=== PATIENT | female | born 1935 | race Caucasian/White ===

== ENCOUNTER 2017-01-18 07:42 | Day surgery (SDC) | payer MEDICARE, OTHER ==
--- NOTE | 2016-12-28 09:50 | HP ---
PREOPERATIVE HISTORY AND PHYSICAL: DATE OF ADMISSION/SURGERY: 01/18/17 PROCEDURE: Right middle finger trigger finger release. CHIEF COMPLAINT: Right middle finger triggering. HISTORY OF PRESENT ILLNESS: This is a 81-year-old female complaining of triggering and pain in the right middle finger that has been ongoing since May 2016. The patient had a cortisone injection for this problem in July 2016 which was helpful; however, the symptoms have returned. She has had a history of trigger fingers in the past and has had trigger finger releases that had been quite successful. She would like to proceed with surgical intervention for her right middle finger at this time. The patient has sleep apnea and is on a CPAP at night with oxygen. PAST MEDICAL HISTORY: 1. Sleep apnea for which she wears a CPAP at night with oxygen. 2. Restless leg syndrome. 3. Hypothyroidism. 4. Mild COPD. 5. Hypertension. PAST SURGICAL HISTORY: 1. Spinal fusion in lumbar region 16 years ago. 2. Right total knee arthroplasty by Dr. Wise. 3. Left total knee arthroplasty by Dr. Salas. 4. Left breast cyst excision. 5. Bilateral carpal tunnel releases. 6. Cholecystectomy. 7. Hysterectomy. 8. Appendectomy. 9. Trigger finger releases, right hand and left ring finger trigger finger releases. CURRENT MEDICATIONS: 1. Albuterol sulfate 1 vial via nebulizer 4 times daily p.r.n. 2. Yuliana 100 mg daily p.r.n. 3. Amoxicillin 500 mg 4 tabs 1 hour before dental work or invasive GI or procedures. 4. Carbidopa/Levodopa 25/100 mg daily. 5. Culturelle 1 daily. 6. Furosemide 40 mg daily. 7. Levothyroxine sodium 100 mcg daily. 8. Misoprostol 100 mcg daily. 9. Naproxen 500 mg 1 tablet q.8 h. p.r.n. pain. 10. Neurontin 300 mg 1 tab at bedtime, may take up to 4 daily. 11. Nexium 40 mg daily. 12. Spiriva HandiHaler 18 mcg q.a.m. 13. Spironolactone 50 mg daily. 14. Vitamin B12 1000 mg daily. 15. Vytorin 10/40 mg daily. ALLERGIES: 1. AVELOX causes thrush. 2. DICHLORALPHENAZONE causes nausea. 3. MORPHINE causes itching. 4. NOVOCAINE causes heart palpitations. The patient is tolerant to lidocaine. FAMILY MEDICAL HISTORY: Noncontributory. SOCIAL HISTORY: The patient is retired. She is a former smoker, quit in the year 1999. She denies illicit drug use. She does admit to regular alcohol use , approximately 2 drinks daily. REVIEW OF SYSTEMS: General: Negative for fevers, chills or night sweats. Under general anesthesia in the past, she has had an issue with a drop in her oxygen saturation. HEENT: Negative for headache, lightheadedness or syncopal episodes. Integumentary: Negative for abrasions, lesions or open wounds. Cardiothoracic: Positive for hypertension. Negative for chest pain. Pulmonary : Positive for COPD, shortness of breath with exertion and chronic cough. GI: Negative for nausea, vomiting, diarrhea or constipation or GERD. : Negative for nocturia, urinary frequency, urgency, history of UTIs or kidney problems. Musculoskeletal: Positive for current complaint along with a history of a lumbar spinal fusion. Neurological: Negative for paraesthesias, numbness, history of seizures, stroke or epilepsy. Endocrine: Positive for hypothyroidism, negative for diabetes. Hematologic. Negative for easy bruising , anemia, excessive bleeding or history of DVTs. Infectious Disease: Negative for history of MRSA, hepatitis C or HIV. PHYSICAL EXAMINATION GENERAL: A well-developed, well-nourished 81-year-old female in no acute distress. VITAL SIGNS: Height 5 feet tall, weight 216 pounds. Blood pressure 118/78, pulse rate 64. HEENT: Normocephalic, atraumatic. Pupils are equal, round and reactive to light and accommodation. Extraocular movements are intact. Throat is clear. NECK: Supple. No palpable lymph nodes. PULMONARY: Clear to auscultation bilaterally. No wheezes, rales or rhonchi. CARDIOTHORACIC: Irregular rate and rhythm. S1, S2. No murmurs, rubs or gallops. ABDOMEN: Positive bowel sounds. Soft, nontender. MUSCULOSKELETAL: On exam of her right hand she has tenderness to palpation at the A1 judah of the middle finger. There is a palpable nodule present. She has full range of motion but active triggering as she moves to flexion and extension. Neurovascular function is intact. NEUROLOGIC: Alert and oriented x3. Cranial nerves II through XII are intact. Sensation is intact to light touch. IMPRESSION: Right middle finger trigger finger. PLAN: The patient is scheduled to undergo a right middle finger release with Dr. Garcia on 01/18/17. She will return to the office 10 to 14 days postop for followup and suture removal. A prescription for Ultracet was e-scribed to the patient's pharmacy for postoperative pain management. PHILIP LANDRUM [id number]/[facility] #: [id number] ELKE
[~2017-01-18 07:42] MED LIST: Buffered Lidocaine 0.9% SYRIN* 5 ML/SYR SYRINGE INTRADERM ONE; NS 0.9% 1000 ML* 1,000 ML IV SCH
[2017-01-18] MEDS ORDERED: Acetaminophen TAB* 325 MG PO PRN (08:55)
[2017-01-18] MEDS ORDERED: PROCHLORPERAZINE INJ 5 MG/ML 2 ML VIAL IV PRN (08:55)
[2017-01-18] MEDS ORDERED: Ondansetron INJ* 2 MG/ML VIAL IV PRN (08:55)
[2017-01-18] MEDS ORDERED: Lidocaine 1% INJ* 10 MG/ML 30 ML SDV ONE (08:59)
[2017-01-18] MEDS ORDERED: Midazolam* 1 MG/ML 2 ML VIAL (2 MG) ONE (09:08)
[2017-01-18] MEDS ORDERED: Lidocaine 2% PF * 5 ML VIAL ONE (09:26)
[2017-01-18] MEDS ORDERED: Propofol* 10 MG/ML 20 ML BTL IV PUSH ONE (09:26)
[2017-01-18] MEDS ORDERED: KETAMINE HCL* 50 MG/ML 10 ML VIAL ONE (09:27)
--- NOTE | 2017-01-18 10:22 | OP ---
DATE OF OPERATION: 01/18/17 - [facility] DATE OF : 39 SURGEON: Yudy Garcia MD EXPORT PACKER: PHILIP Macedo ANESTHESIOLOGIST: Vineet Cali MD ANESTHESIA: Local, MAC. PRE-OP DIAGNOSIS: Right long finger trigger finger. POST-OP DIAGNOSIS: Right long finger trigger finger. OPERATIVE PROCEDURE: Right long finger trigger release. ESTIMATED BLOOD LOSS: Zero. TOURNIQUET TIME: About 8 minutes. INDICATION: Jelly is a 81-year-old female with triggering and locking of her right middle finger. She presents for trigger finger release. DESCRIPTION OF PROCEDURE: The patient was brought to the operating room, was given a sedation anesthetic and a local infiltration of 10 cc of 1% plain lidocaine. Skin of her right hand and forearm was prepped and draped in the usual sterile fashion. The hand and forearm were exsanguinated and tourniquet elevated to 250 mmHg. A transverse incision was made centered over the A1 judah of the right middle finger, dissected through the subcutaneous tissue and down to the A1 judah. The digital neurovascular bundles were retracted by the bilingual administrative assistant, Marj Pappas. The A1 judah was incised longitudinally, completely releasing the flexor tendons which were in very good condition. The wound was irrigated and the skin edges reapproximated with 4-0 nylon suture. The wound was dressed with Xeroform, 4x4, Webril and an Fernando wrap. The patient tolerated the procedure well, was brought to the recovery room in good condition. [id number]/[facility] #: [id number] MTDD
[2017-01-18 10:35] VITALS: BP 123/65
== END 2017-01-18 10:30 | disposition home or self-care (01) ==
LOC: OREAST 07:42
PROVIDERS: ATTEND Orthopaedic Surgery
DX: M65.331 Trigger finger, right middle finger (principal); G47.33 Obstructive sleep apnea (adult) (pediatric); E03.9 Hypothyroidism, unspecified; J44.9 Chronic obstructive pulmonary disease, unspecified; I10 Essential (primary) hypertension; G25.81 Restless legs syndrome; Z88.1 Allergy status to other antibiotic agents; Z88.4 Allergy status to anesthetic agent; Z88.5 Allergy status to narcotic agent; Z88.8 Allergy status to other drugs, medicaments and biological substances; Z87.891 Personal history of nicotine dependence
CPT/HCPCS: J2001; J2250; J2704

== ENCOUNTER 2017-12-18 06:22 | Inpatient (IN) | payer MEDICARE, OTHER ==
--- NOTE | 2017-12-06 21:32 | HP ---
PREOPERATIVE HISTORY AND PHYSICAL: DATE OF ADMISSION/SURGERY: 12/18/17 DATE OF OFFICE VISIT: 12/05/17 ATTENDING SURGEON: Fallon Jones MD * (DICTATED BY PHILIP LONGORIA) PROCEDURE: Right total shoulder reverse. CHIEF COMPLAINT: Right shoulder pain. HISTORY OF PRESENT ILLNESS: Jelly is an 82-year-old female, who presents to the clinic for right shoulder pain due to rotator cuff arthropathy and osteoarthritis. She has failed conservative measures and therefore agreed to undergo right total shoulder reverse with Dr. Jones on 12/18/17. PAST MEDICAL HISTORY: Hypothyroidism, pulmonary hypertension, COPD, restless legs syndrome, hypertension, hypercholesterolemia, and obstructive sleep apnea. PAST SURGICAL HISTORY: Appendectomy, left breast cyst removal, abscess surgery , left bunion repair, gallbladder and hernia repair, left carpal tunnel, right carpal tunnel, spinal fusion L4 through 5, hysterectomy, right and left total knee replacements, trigger finger release x4. The patient states that with general anesthesia, she has issues with decreased pulse ox postoperatively. MEDICATIONS: 1. Nystatin 100,000 units/g twice a day as needed. 2. Simvastatin 40 mg 1 by mouth every day. 3. Tramadol 50 mg 1 to 2 every 8 hours as needed. 4. Amoxicillin 500 mg 4 tabs 1 hour before dental work. 5. Misoprostol 100 mcg 1 by mouth daily. 6. Spironolactone 50 mg 1 by mouth daily. 7. Vitamin B12 1000 mg 1 by mouth every day. 8. Naproxen 500 mg 1 every 12 hours as needed for pain. 9. Nexium 40 mg 1 by mouth daily. 10. Yuliana 180 mg 1 by mouth daily as needed. 11. Neurontin 300 mg 4 times at bedtime. 12. Carbidopa/levodopa 25/100 mg 1 by mouth daily. 13. Levothyroxine sodium 100 mcg 1 by mouth daily. 14. Culturelle 1 by mouth 15 billion cells per capsule. 15. Furosemide 40 mg 1 by mouth every day. 16. Albuterol 0.083% one vial four times a day as needed. ALLERGIES: AVELOX, NOVOCAIN, DICHLORALPHENAZONE, and MORPHINE. FAMILY HISTORY: Positive for heart issues in maternal grandparents, in father, and Alzheimer's disease in mother. Denies family history of DVT or PE. SOCIAL HISTORY: She is . She lives alone. She is retired. She is a former smoker, quit in 1999. She reports occasional alcohol use. She denies illegal drug use. REVIEW OF SYSTEMS: A 14-point review of systems was reviewed with the patient. Positive for current complaint, otherwise negative. Denies fevers, chills, chest pain, shortness of breath, history of hep C or HIV, history of bleeding disorder, history of DVT or PE. PHYSICAL EXAMINATION GENERAL: An 82-year-old, well-developed, well-nourished female, in no acute distress. Alert and oriented x3. Appropriate mood and affect. Normal balance and coordination in the upper extremities. VITAL SIGNS: Height 60.5, weight 202, pulse 88, blood pressure 110/86, respiratory rate 20, temperature 97.9, and BMI 38.8. HEENT: Normocephalic, atraumatic. PERRLA. Throat: Clear. NECK: Supple. PULMONARY: Lungs are clear to auscultation bilaterally. No wheezing, rhonchi, or rales. CARDIO: Regular rate and rhythm. S1, S2. No murmurs, gallops, or rubs. No edema. ABDOMEN: Positive bowel sounds, soft, and nontender. NEURO: Alert and oriented x3. Cranial nerves grossly intact. Sensation is intact to light touch. MUSCULOSKELETAL: Right upper extremity, skin is intact. Tenderness over the anterior joint line. Forward flexion 160, abduction 150, external rotation to 80, internal rotation to T10. Weakness to rotator cuff testing. +2 radial pulse. Sensation intact to light touch distally. DIAGNOSTIC STUDIES: MRI and x-ray of the right shoulder revealed rotator cuff tear with severe osteoarthritis. IMPRESSION: Right shoulder osteoarthritis and rotator cuff arthroscopy. PLAN: The patient is scheduled to undergo a right total shoulder reverse with Dr. Jones on 12/18/17. She will return to the office 10 to 14 days postop for followup and suture removal. PHILIP LONGORIA [id number]/[facility] #: [id number] [facility]PITALGraham
[~2017-12-18 06:22] MED LIST changes: +Famotidine IV* 10 MG/ML 2 ML (20 mg) IV ONE; -NS 0.9% 1000 ML* 1,000 ML IV SCH
--- OUTSIDE RECORDS SUMMARY | 2017-12-18 06:28 | XMS REPORT ---
:1935 External Reference #:[id number] Author Organization [facility] Address [address] [address] Phone [phone] Care Team Providers Name Role Phone Antonio Urban MD Primary Care Physician Unavailable Payers Type Date Identification Numbers Payment Provider Subscriber Medicare Primary Effective: Policy Number: Medicare Jelly Dover 2002 [id number] PayID: [id number] [address] [place] [address] Medigap Part B Effective: Policy Number: [facility] Davis Dover 2002 [id number] PayID: [id number] [address] [place] [address] Problems Date Description Provider Status Onset: 12/08/2014 Osteoarthritis of knee Hiram Wise M.D. Active Onset: 08/26/2012 Obstructive sleep apnea of adult Rea Bertrand DNP, RN, Active [employer] Note: 08/26/12 on CPAP with O2 2L Onset: 06/17/2015 Localized, primary osteoarthritis Lizzie Salas M.D. Active Onset: 09/26/2015 Arthroplasty of knee Lizzie Salas M.D. Active Onset: 03/04/2017 Osteoarthritis of glenohumeral Antonio Urban Active joint Edgardo,FACP Onset: 03/04/2017 Restless legs Antonio Urban Active Edgardo,FACP Onset: 03/04/2017 Chronic obstructive lung disease Antonio Urban Active Edgardo,FACP Onset: 03/04/2017 Pulmonary hypertension Khadijah Jones M.D.,FACP Note: Mod Onset: 03/04/2017 Hypothyroidism Khadijah Jones M.D.,FACP Onset: 07/11/2017 Full thickness rotator cuff tear Fallon Jones MD Active Onset: 07/11/2017 Injury of shoulder region Fallon Jones MD Active Family History Date Family Member(s) Problem(s) Comments General MGP heart issues ; did not know PGP Father of massive heart attack at age 59 Father due to [place] () Mother at age 85 Mother Shashank's disease; pernecious anemia Siblings None Siblings 1 adopted sister Maternal Grandfather Heart Disease Maternal Grandmother Heart Disease Social History Type Date Description Comments Marital Status Marital Status 2 Times Lives With Alone Occupation Retired Cigarette Use Quit 15 Years Ago Cigarette Use Pack Years - 47 ETOH Use Consumes 7 glasses of wine per week Smoking Patient is a former smoker Recreational Drug Use Denies Drug Use Smoking Light tobacco smoker (10 or reports smoking 1/2 to fewer cigarettes/day) 2 packs per day x 40 years, quit in 1999. Daily Caffeine Consumes on average 1 cup of regular coffee per day Exercise Type/Frequency Exercises sporadically General Hx Text 2 children, plus one killed by drunk driver license agent, 4th stillborn Allergies, Adverse Reactions, Alerts Date Description Reaction Status Severity Comments 05/13/2013 Avelox active 05/13/2013 Novocain active 03/07/2015 Dichloralphenazone active sick to stomach 03/07/2015 Morphine active Medications Medication Date Status Form Strength Qnty SIG Indications Ordering Provider Simvastatin 11/18 Active Tablets 40mg 90tab 1 by mouth s every day TREVOR Hernandez Tramadol HCL 10/11 Active Tablets 50mg 40tab 1-2 tablets M75.121 jv s every 8 MD Robert hours as needed Amoxicillin 10/11 Active Capsules 500mg 16cap 4 tablets 1 Marita s hour before Bordonadalgisa, dental [employer]VANC[employer]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 Spironolactone 03/06 Active Tablets 50mg 30tab 1 by mouth s daily Vitamin B12 03/06 Active Tablets 1000mg 1 by mouth every day Naproxen 10/13 Active Tablets 500mg 90tab 1 tablet s q12 hours Hernandez, as needed [employer] PRACTICE NURSE PSYCHOTHERAPIST pain reduce to one tablet daily when able Nexium Active Capsules 40mg 90cap [address] s Yuliana Active Tablets 180mg 30tab 1 po qd prn s Neurontin Active Capsules 300mg 360ca four Antonio ps tablets a D. [place], bedtime M.D.,FACP daily (correction ) Carbidopa/Levodo Active Tablets 25-100mg 270ta 1 po qd Unknown bs Levothyroxine Active Tablets 100mcg 90tab 1 by mouth Sully Sodium s every day TREVOR Hernandez Culturelle Active Capsules 30cap once a day Unknown s 15 billion cells per capsule Furosemide Active Tablets 40mg 90tab 1 by mouth Sully / s every day TREVOR Hernandez Albuterol Active Nebulizer (2.5mg/3M 1 vial via Unknown L) 0.083% nebulizer 4 times daily as needed Ultracet 12/26 Hx Tablets 37.5-325m 20tab 1 tab by g s mouth every Garcia, - 4-6 hours M.D. 11/21 as needed pain Ultracet 01/29 Hx Tablets 37.5-325m 30tab 1-2 tabs by g s mouth every Garcia, - 4-6 hours M.D. 07/08 as needed pain Amoxicillin 06/20 Hx Tablets 500mg 30tab 1 by mouth s tid for 10 Bordoni, - days. ADVANC[employer] PRACTICE NURSE PSYCHOTHERAPIST 08/09 Percocet 06/15 Hx Tablets 5-325mg 90tab 1-2 by M17.11 Lizzie s mouth every Josue, - 4 to 6 M.D. 08/09 hours needed pain Coumadin 06/15 Hx Tablets 2mg 60tab take 1-5 M17.11 Dir s tablets as Frandy, - directed M.D. 08/09 Amoxicillin 01/03 Hx Tablets 500mg 8tabs take 4 tabs 1 hour Frandy, - before M.D. 08/09 procedure. Percocet 10/13 Hx Tablets 5-325mg 50tab 1 by mouth Dirk s q8h prn Frandy, - pain M.D. 10/27 Percocet 10/13 Hx Tablets 5-325mg 80tab 1-2 by Dirk s mouth every Frandy, - 8 hours as M.D. 03/06 needed pain Diclofenac 05/[address] 75mg 180ta take 1 bs tablet by Silvia, - mouth twice M.D. 10/27 a day /2014 Ultracet 03/24 Hx Tablets 37.5-325m 30tab 1 - 2 by Yudy /2014 g s mouth Garcia, - q4-6hr as M.D. 10/27 needed pain /2014 Losartan 00/ Hx Tablets 50mg 90tab 1 po qd Unknown Potassium /0000 s - 03/06 Naproxen Ec Hx Tablets DR 500mg 60tab 1 po bid Unknown /0000 s - 05/19 Vytorin Hx Tablets 10-40mg 90tab 1 by mouth Sully /0000 s every day Mary, - [employer]ACTICE NURSE PSYCHOTHERAPIST 11/18 Bumetanide Hx Tablets 1mg 90tab 1 po qd Unknown /0000 s - 10/27 Spironolactone 0000 Hx Tablets 50mg 90tab 1 po qd Unknown /0000 s - 11/11 Spiriva Hx Capsules 18mcg 30cap 1 Unknown Handihaler /0000 s inhalation - po qam 05/15 Multi-Day 00/00 Hx Tablets 30tab 1 po qd Unknown Vitamins /0000 s - 03/06 Medications Administered in Office Medication Date Status Form Strength Qnty SIG Indications Ordering Provider Triamcinolone 10/11/ Administered Injection Zaneb (Kenalog) 2017 MD Robert Triamcinolone 07/11/ Administered Injection Zaneb (Kenalog) 2016 MD Robert Depomedrol 40MG 05/16/ Administered Injection Yudy 2016 Edgardo Garcia Depomedrol 40MG 07/11/ Administered Injection Yudy 2015 Edgardo Garcia Depomedrol 40MG 08/10/ Administered Injection Yudy 2015 Edgardo Garcia Depomedrol 80MG 12/29/ Administered Injection Yudy 2014 Edgarod Garcia Depomedrol 80MG 11/11/ Administered Injection Yudy 2013 Edgardo Garcia Depomedrol 80MG 05/13/ Administered Injection Yudy 2012 Edgardo Garcia PPD 05/05/ Administered Injection Unknown 2008 Immunizations CPT Code Status Date Vaccine Reaction Lot # [id number] Given 05/16/2017 Influenza Virus Vaccine, No immediate [id number] Quadrivalent, Split, reaction..jh Preservative Free [id number] Given 03/04/2017 Pneumococcal Conjugate [id number] Vaccine 13 Valent For Intramuscular Use [id number] Given 04/05/2016 Fluzone Vaccine [id number] Given 06/05/2015 Pneumonia Vaccine [id number] Given 01/03/2006 Tdap - Tetanus/Diptheria/Acellular Pertussis Vital Signs Date Vital Result Comment 11/21/2017 Weight 200.00 lb Heart Rate 93 /min BP Systolic 122 mmHg BP Diastolic 72 mmHg Body Temperature 97.9 F O2 % BldC Oximetry 95 % 10/28/2017 Weight 201.00 lb Heart Rate 77 /min BP Systolic 125 mmHg BP Diastolic 65 mmHg Body Temperature 98.2 F O2 % BldC Oximetry 95 % 10/11/2017 Height 60.5 inches 5'0.50" Weight 215.00 lb BP Systolic 122 mmHg BP Diastolic 76 mmHg Respiratory Rate 20 /min Pain Level 7 BMI (Body Mass Index) 41.3 kg/m2 09/04/2017 Heart Rate 82 /min BP Systolic 117 mmHg BP Diastolic 62 mmHg Body Temperature 98.0 F O2 % BldC Oximetry 96 % 08/23/2017 Height 60.5 inches 5'0.50" Weight 215.00 lb BP Systolic 120 mmHg BP Diastolic 68 mmHg Respiratory Rate 20 /min Pain Level 2 BMI (Body Mass Index) 41.3 kg/m2 07/11/2017 Height 60.5 inches 5'0.50" Weight 215.00 lb Heart Rate 80 /min Respiratory Rate 14 /min Body Temperature 97.9 F Pain Level 0 BMI (Body Mass Index) 41.3 kg/m2 07/03/2017 Height 60.5 inches 5'0.50" Weight 215.00 lb Heart Rate 79 /min BP Systolic 12 mmHg BP Diastolic 0 mmHg BP Systolic Sitting 78 mmHg Body Temperature 96.9 F BMI (Body Mass Index) 41.3 kg/m2 05/16/2017 Height 60.5 inches 5'0.50" Weight 215.00 lb Heart Rate 68 /min BP Systolic 124 mmHg BP Diastolic 62 mmHg Respiratory Rate 18 /min Body Temperature 96.0 F Pain Level 5 BMI (Body Mass Index) 41.3 kg/m2 03/04/2017 Height 60.5 inches 5'0.50" Weight 212.00 lb Heart Rate 67 /min BP Systolic Sitting 104 mmHg BP Diastolic Sitting 60 mmHg Body Temperature 97.7 F O2 % BldC Oximetry 97 % BMI (Body Mass Index) 40.7 kg/m2 02/18/2017 Height 60 inches 5'0" Weight 216.00 lb Heart Rate 77 /min BP Systolic 119 mmHg BP Diastolic 70 mmHg BMI (Body Mass Index) 42.2 kg/m2 01/28/2017 Height 60 inches 5'0" Weight 216.00 lb Heart Rate 68 /min BP Systolic 112 mmHg BP Diastolic 78 mmHg Body Temperature 97.8 F Pain Level 0 BMI (Body Mass Index) 42.2 kg/m2 12/26/2016 Height 60 inches 5'0" Weight 216.00 lb BP Systolic 118 mmHg BP Diastolic 78 mmHg Body Temperature 97.8 F BMI (Body Mass Index) 42.2 kg/m2 09/05/2016 Height 60 inches 5'0" Weight 200.00 lb Heart Rate 107 /min BP Systolic 104 mmHg BP Diastolic 62 mmHg Respiratory Rate 14 /min O2 % BldC Oximetry 93 % BMI (Body Mass Index) 39.1 kg/m2 07/11/2016 Height 60 inches 5'0" Weight 200.00 lb Pain Level 7 BMI (Body Mass Index) 39.1 kg/m2 07/09/2016 Height 60 inches 5'0" Weight 200.00 lb Heart Rate 62 /min BP Systolic Sitting 98 mmHg BP Diastolic Sitting 68 mmHg Respiratory Rate 14 /min Pain Level 0 BMI (Body Mass Index) 39.1 kg/m2 07/04/2016 Height 60 inches 5'0" Weight 200.00 lb Heart Rate 110 /min BP Systolic 137 mmHg BP Diastolic 65 mmHg BMI (Body Mass Index) 39.1 kg/m2 03/15/2016 Height 60 inches 5'0" Weight 200.00 lb Body Temperature 98.1 F Pain Level 0 BMI (Body Mass Index) 39.1 kg/m2 02/20/2016 Height 70 inches 5'10" Weight 200.00 lb Heart Rate 64 /min Respiratory Rate 16 /min Body Temperature 98.3 F Pain Level 3 BMI (Body Mass Index) 28.7 kg/m2 02/17/2016 Height 60 inches 5'0" Weight 200.00 lb Heart Rate 60 /min Respiratory Rate 16 /min Pain Level 0 BMI (Body Mass Index) 39.1 kg/m2 01/30/2016 Height 60 inches 5'0" Weight 200.00 lb BP Systolic 120 mmHg BP Diastolic 78 mmHg Pain Level 5 BMI (Body Mass Index) 39.1 kg/m2 10/12/2015 Height 60 inches 5'0" Weight 200.00 lb Pain Level 0 BMI (Body Mass Index) 39.1 kg/m2 09/26/2015 Height 60 inches 5'0" Weight 200.00 lb Pain Level 0 BMI (Body Mass Index) 39.1 kg/m2 08/12/2015 Height 60 inches 5'0" Weight 200.00 lb Pain Level 2 ache BMI (Body Mass Index) 39.1 kg/m2 08/10/2015 Height 60 inches 5'0" Weight 200.00 lb Heart Rate 64 /min BP Systolic Sitting 128 mmHg BP Diastolic Sitting 82 mmHg BMI (Body Mass Index) 39.1 kg/m2 07/11/2015 Height 60 inches 5'0" Weight 199.00 lb Body Temperature 97.9 F BMI (Body Mass Index) 38.9 kg/m2 06/17/2015 Height 60 inches 5'0" Weight 199.00 lb Heart Rate 68 /min BP Systolic 118 mmHg BP Diastolic 74 mmHg BMI (Body Mass Index) 38.9 kg/m2 06/15/2015 Height 60 inches 5'0" Weight 199.00 lb Heart Rate 68 /min BP Systolic Sitting 118 mmHg BP Diastolic Sitting 74 mmHg Pain Level 1 BMI (Body Mass Index) 38.9 kg/m2 05/04/2015 Height 60 inches 5'0" Weight 199.00 lb Pain Level 4 BMI (Body Mass Index) 38.9 kg/m2 03/07/2015 Height 60 inches 5'0" Weight 199.50 lb Heart Rate 85 /min BP Systolic Sitting 136 mmHg BP Diastolic Sitting 74 mmHg Respiratory Rate 20 /min Body Temperature 97.4 F O2 % BldC Oximetry 98 % BMI (Body Mass Index) 39.0 kg/m2 Neck Circumference in inches 15 01/13/2015 Height 60 inches 5'0" Weight 200.00 lb Heart Rate 75 /min BP Systolic 116 mmHg BP Diastolic 81 mmHg Pain Level 0 BMI (Body Mass Index) 39.1 kg/m2 12/29/2014 Heart Rate 64 /min BP Systolic Sitting 110 mmHg BP Diastolic Sitting 60 mmHg 12/08/2014 Height 60 inches 5'0" Weight 200.00 lb Pain Level 6 BMI (Body Mass Index) 39.1 kg/m2 11/17/2014 Height 60 inches 5'0" Weight 200.00 lb Pain Level 4 BMI (Body Mass Index) 39.1 kg/m2 10/27/2014 Height 60 inches 5'0" Weight 200.00 lb Heart Rate 80 /min BP Systolic Sitting 130 mmHg BP Diastolic Sitting 88 mmHg BMI (Body Mass Index) 39.1 kg/m2 10/13/2014 Height 60 inches 5'0" Heart Rate 90 /min BP Systolic 104 mmHg BP Diastolic 67 mmHg Body Temperature 97.9 F 09/06/2014 Height 60 inches 5'0" Weight 200.00 lb Heart Rate 73 /min BP Systolic 127 mmHg BP Diastolic 79 mmHg BMI (Body Mass Index) 39.1 kg/m2 07/21/2014 Height 60 inches 5'0" Weight 200.00 lb Heart Rate 89 /min BMI (Body Mass Index) 39.1 kg/m2 05/19/2014 Height 60 inches 5'0" Weight 200.00 lb Heart Rate 89 /min BP Systolic 119 mmHg BP Diastolic 80 mmHg BMI (Body Mass Index) 39.1 kg/m2 11/11/2013 Heart Rate 88 /min BP Systolic Sitting 130 mmHg BP Diastolic Sitting 82 mmHg 05/13/2013 Height 60 inches 5'0" Weight 200.00 lb BMI (Body Mass Index) 39.1 kg/m2 Results Test Date Test Result H/L Range Note Order 11/21/2017 EKG <pending> Lipid Profile 09/09/2017 Triglycerides 203 mg/dL 1 (Trig/Chol/HDL) Cholesterol 169 mg/dL 2 HDL Cholesterol 47.7 mg/dL 3 LDL Cholesterol 81 mg/dL 4 Laboratory test finding 09/09/2017 TSH (Thyroid Stim Horm) 0.35 mcIU/mL 0.34-5.60 Free T4 (Free Thyroxine) 0.93 ng/dL 0.61-1.12 Basic Metabolic Panel 09/09/2017 Sodium 138 mmol/L 133-145 Potassium 4.6 mmol/L 3.5-5.0 Chloride 99 mmol/L Low 101-111 Co2 Carbon Dioxide 34 mmol/L High 22-32 Anion Gap 5 mmol/L 2-11 Glucose 86 mg/dL 70-100 Blood Urea Nitrogen 14 mg/dL 6-24 Creatinine 0.84 mg/dL 0.51-0.95 BUN/Creatinine Ratio 16.7 8-20 Calcium 10.1 mg/dL 8.6-10.3 Egfr Non- 65.4 >60 Egfr 84.1 >60 5 Xray 07/04/2017 MRI Shoulder Right W/O <pending> Laboratory test 06/24/2015 Urine Culture And SEE RESULT BELOW 6 finding Sensitivities CBC No Diff 06/15/2015 White Blood Count 6.8 10^3/uL 4.8-10.8 7 Red Blood Count 4.33 10^6/uL 4.0-5.4 7 Hemoglobin 12.6 g/dL 12.0-16.0 7 Hematocrit 40 % 35-47 7 Mean Corpuscular Volume 92 fL 80-97 7 Mean Corpuscular Hemoglobin 29 pg 27-31 7 Mean Corpuscular HGB Conc 32 g/dL 31-36 7 Red Cell Distribution Width 14 % 10.5-15 7 Platelet Count 221 10^3/uL 150-450 7 Mean Platelet Volume 10 um3 7.4-10.4 7 Inr/Protime 06/15/2015 Inr 0.91 0.89-1.11 7, 8 Basic Metabolic Panel 06/15/2015 Sodium 136 mmol/L 133-145 7 Potassium 4.5 mmol/L 3.5-5.0 7 Chloride 98 mmol/L Low 101-111 7 Co2 Carbon Dioxide 31 mmol/L 22-32 7 Anion Gap 7 mmol/L 2-11 7 Glucose 86 mg/dL 70-100 7 Blood Urea Nitrogen 23 mg/dL 6-24 7 Creatinine 1.13 mg/dL High 0.51-0.95 7 BUN/Creatinine Ratio 20.4 High 8-20 7 Calcium 9.9 mg/dL 8.6-10.3 7 Egfr Non- 46.7 >60 7 Egfr 60.0 >60 7, 9 Type & Screen 06/15/2015 Patient Blood Type O Positive 7 Antibody Screen NEGATIVE 7 Urinalysis Profile 06/15/2015 Urine Color Straw 7 Urine Appearance Clear 7 Urine Specific [place] 1.006 Low 1.010-1.030 7 Urine pH 5.0 5-9 7 Urine Urobilinogen Negative Negative 7 Urine Ketones Negative Negative 7 Urine Protein Negative Negative 7 Urine Leukocytes Trace Negative 7 Urine Blood Negative Negative 7 Urine Nitrite Negative Negative 7 Urine Bilirubin Negative Negative 7 Urine Glucose Negative Negative 7 Urine White Blood Cell Trace(0-5/hpf) Absent 7 Urine Red Blood Cell Absent Absent 7 Urine Bacteria Absent Absent 7 Urine Squamous Epithelial Cell Present Absent 7 Urine Hyaline Casts Present Absent 7 Laboratory test 06/15/2015 Urine Culture And SEE RESULT 7, 10 finding Sensitivities BELOW CBC No Diff 01/14/2015 White Blood Count 7.6 10^3/uL 4.8-10.8 11 Red Blood Count 4.27 10^6/uL 4.0-5.4 11 Hemoglobin 12.4 g/dL 12.0-16.0 11 Hematocrit 39 % 35-47 11 Mean Corpuscular Volume 90 fL 80-97 11 Mean Corpuscular Hemoglobin 29 pg 27-31 11 Mean Corpuscular HGB Conc 32 g/dL 31-36 11 Red Cell Distribution Width 14 % 10.5-15 11 Platelet Count 264 10^3/uL 150-450 11 Mean Platelet Volume 9 um3 7.4-10.4 11 Urinalysis Profile 01/14/2015 Urine Color Colorless 11 Urine Appearance Clear 11 Urine Specific [place] 1.004 Low 1.010-1.030 11 Urine pH 6.0 5-9 11 Urine Urobilinogen Negative Negative 11 Urine Ketones Negative Negative 11 Urine Protein Negative Negative 11 Urine Leukocytes Trace Negative 11 Urine Blood Negative Negative 11 Urine Nitrite Negative Negative 11 Urine Bilirubin Negative Negative 11 Urine Glucose Negative Negative 11 Urine White Blood Cell Trace(0-5/hpf) Absent 11 Urine Red Blood Cell Absent Absent 11 Urine Bacteria Absent Absent 11 Urine Squamous Epithelial Cell Present Absent 11 Basic Metabolic Panel 01/14/2015 Sodium 135 mmol/L 133-145 11 Potassium 4.1 mmol/L 3.5-5.0 11 Chloride 96 mmol/L Low 101-111 11 Co2 Carbon Dioxide 34 mmol/L High 22-32 11 Anion Gap 5 mmol/L 2-11 11 Glucose 87 mg/dL 70-100 11 Blood Urea Nitrogen 21 mg/dL 6-24 11 Creatinine 0.94 mg/dL 0.51-0.95 11 BUN/Creatinine Ratio 22.3 High 8-20 11 Calcium 9.9 mg/dL 8.6-10.3 11 Egfr Non- 57.7 >60 11 Egfr 74.3 >60 11, 12 Inr/Protime 01/14/2015 Inr 0.92 0.78-1.07 11 Type & Screen 01/14/2015 Patient Blood Type O Positive 11 Antibody Screen NEGATIVE 11 Laboratory test 01/14/2015 Urine Culture And SEE RESULT BELOW 11, 13 finding Sensitivities Urinalysis Profile 09/06/2014 Urine Color Straw 14 Urine Appearance Clear 14 Urine Specific [place] 1.006 Low 1.010-1.030 14 Urine pH 6.0 5-9 14 Urine Urobilinogen Negative Negative 14 Urine Ketones Negative Negative 14 Urine Protein Negative Negative 14 Urine Leukocytes Negative Negative 14 Urine Blood Negative Negative 14 Urine Nitrite Negative Negative 14 Urine Bilirubin Negative Negative 14 Urine Glucose Negative Negative 14 CBC No Diff 09/06/2014 White Blood Count 6.8 10^3/uL 4.8-10.8 14 Red Blood Count 3.99 10^6/uL Low 4.0-5.4 14 Hemoglobin 12.6 g/dL 12.0-16.0 14 Hematocrit 38 % 35-47 14 Mean Corpuscular Volume 95 fL 80-97 14 Mean Corpuscular Hemoglobin 32 pg High 27-31 14 Mean Corpuscular HGB Conc 33 g/dL 31-36 14 Red Cell Distribution Width 13 % 10.5-15 14 Platelet Count 237 10^3/uL 150-450 14 Mean Platelet Volume 10 um3 7.4-10.4 14 Inr/Protime 09/06/2014 Inr 0.92 0.78-1.07 14, 15 Basic Metabolic Panel 09/06/2014 Sodium 132 mmol/L Low 133-145 14 Potassium 4.7 mmol/L 3.5-5.0 14 Chloride 96 mmol/L Low 101-111 14 Co2 Carbon Dioxide 31 mmol/L 22-32 14 Anion Gap 5 mmol/L 2-11 14 Glucose 95 mg/dL 70-100 14 Blood Urea Nitrogen 28 mg/dL High 6-24 14 Creatinine 1.05 mg/dL High 0.51-0.95 14 BUN/Creatinine Ratio 26.7 High 8-20 14 Calcium 10.4 mg/dL High 8.6-10.3 14 Egfr Non- 51.0 >60 14 Egfr 65.5 >60 14, 16 Laboratory test 09/06/2014 TSH (Thyroid 1.69 IU/mL 0.34-5.60 14, 17 finding Stimulating Horm) Type & Screen 09/06/2014 Patient Blood Type O Positive 14 Antibody Screen NEGATIVE 14 1 Desirable: <150 Borderline High: 150-199 High: 200-499 Very High: >500 2 Desirable: <200 Borderline High: 200-239 High: >239 3 Low: <40 Desirable: 40-60 High: >60 4 Desirable: <100 Near Optimal: 100-129 Borderline High: 130-159 High: 160-189 Very High: >189 5 Because ethnic data is not always readily available, this report includes an eGFR for both -Americans and non- Americans. The National Kidney Disease Education Program (NKDEP) does not endorse the use of the MDRD equation for patients that are not between the ages of 18 and 70, are , have extremes of body size, muscle mass, or nutritional status, or are non- or non-. According to the National Kidney Foundation, irrespective of diagnosis, the stage of the disease is based on the level of kidney function: Stage Description GFR(mL/min/1.73 m(2)) 1 Kidney damage with normal or decreased GFR 90 2 Kidney damage with mild decrease in GFR 60-89 3 Moderate decrease in GFR 30-59 4 Severe decrease in GFR 15-29 5 Kidney failure <15 (or dialysis) 6 SEE RESULT BELOW Name: JELLY DOVER : [address]: Lizzie Salas MD Acct: [id number] Unit: [id number] AGE: 79 Location: LAB Re06/24/15 SEX: F Status: REG REF SPEC: [id number] GERARDO: 06/24/15-1220 [facility] DR: Marita Virk NP REQ: [id number] RECD: 06/24/15 STATUS: COMP _ SOURCE: URINE SPDESC: ORDERED: Urine Culture Urine Source: Random Procedure Result Verified Site Urine Culture Final 06/26/15- 933 ML Organism 1 NORMAL STEPH [place] Count 10-25,000 (Moderate) CFU/ML * ML - MAIN LAB ([facility]) . END OF REPORT * ML=Testing performed at Main Lab DEPARTMENT OF PATHOLOGY, [address] [place] [address] Ruperto Lozano M.D. Director [facility] # [id number] 7 AA 06/21/15 8 Effective immediately, due to a laboratory mean normal Protime change, the reference range for the INR has changed. 9 Because ethnic data is not always readily available, this report includes an eGFR for both -Americans and non- Americans. The National Kidney Disease Education Program (NKDEP) does not endorse the use of the MDRD equation for patients that are not between the ages of 18 and 70, are , have extremes of body size, muscle mass, or nutritional status, or are non- or non-. According to the National Kidney Foundation, irrespective of diagnosis, the stage of the disease is based on the level of kidney function: Stage Description GFR(mL/min/1.73 m(2)) 1 Kidney damage with normal or decreased GFR 90 2 Kidney damage with mild decrease in GFR 60-89 3 Moderate decrease in GFR 30-59 4 Severe decrease in GFR 15-29 5 Kidney failure <15 (or dialysis) 10 SEE RESULT BELOW Name: JELLY DOVER : [address]: Hiram Wise MD Acct: [id number] Unit: [id number] AGE: 79 Location: [facility] Re06/15/15 SEX: F Status: REG REF SPEC: [id number] GERARDO: 06/15/15-1140 [facility] DR: Hiram Wise MD REQ: [id number] RECD: 06/15/15 STATUS: DEE SHETTY DR: Fahad Ramirez MD _ SOURCE: URINE [facility]: ORDERED: Urine Culture Procedure Result Verified Site Urine Culture Final 06/17/15- 1009 ML Organism 1 STREP GROUP B [place] Count 10-25,000 (Moderate) CFU/ML Organism 2 NORMAL STEPH [place] Count 1-10,000 (Few) CFU/ML Susceptibility testing of penicillins and other B-lactams approved by FDA for treatment of Streptococcus pyogenes (Group A Strep) and Streptococcus agalactiae (Group B Strep) is not necessary for clinical purposes and need not be done routinely, since as with vancomycin, resistant strains have not been recognized. (CLSI I799-S87;p.66) Positive isolates will be saved for one week. Please call the Microbiology Laboratory if further susceptibility testing is needed. * ML - [facility] ([facility]) . END OF REPORT * ML=Testing performed at Main Lab DEPARTMENT OF PATHOLOGY, [address] [place] [address] Ruperto Lozano M.D. Director [facility] # [id number] 01/25 12 Because ethnic data is not always readily available, this report includes an eGFR for both -Americans and non- Americans. The National Kidney Disease Education Program (NKDEP) does not endorse the use of the MDRD equation for patients that are not between the ages of 18 and 70, are , have extremes of body size, muscle mass, or nutritional status, or are non- or non-. According to the National Kidney Foundation, irrespective of diagnosis, the stage of the disease is based on the level of kidney function: Stage Description GFR(mL/min/1.73 m(2)) 1 Kidney damage with normal or decreased GFR 90 2 Kidney damage with mild decrease in GFR 60-89 3 Moderate decrease in GFR 30-59 4 Severe decrease in GFR 15-29 5 Kidney failure <15 (or dialysis) 13 SEE RESULT BELOW Name: JELLY DOVER : [address]: Hiram Wise MD Acct: [id number] Unit: [id number] AGE: 79 Location: PAT Re01/14/15 SEX: F Status: REG REF SPEC: [id number] GERARDO: 01/14/15-1404 [facility] DR: Hiram Wise MD REQ: [id number] RECD: 01/14/15 STATUS: DEE SHETTY DR: Fahad Ramirez MD _ SOURCE: URINE SPDESC: ORDERED: Urine Culture Procedure Result Verified Site Urine Culture Final 01/16/15- 09 ML Organism 1 NORMAL STEPH [place] Count 1-10,000 (Few) CFU/ML * ML - MAIN LAB ([facility]) . END OF REPORT * ML=Testing performed at Main Lab DEPARTMENT OF PATHOLOGY, [address] [place] [address] Ruperto Lozano M.D. Director [facility] # [id number] 14 AA SURGERY 09/14/14 15 Please note: Effective September 01, 2014, the reference value for this test has changed due to the validation and activation of a new reagent lot number. 16 Because ethnic data is not always readily available, this report includes an eGFR for both -Americans and non- Americans. The National Kidney Disease Education Program (NKDEP) does not endorse the use of the MDRD equation for patients that are not between the ages of 18 and 70, are , have extremes of body size, muscle mass, or nutritional status, or are non- or non-. According to the National Kidney Foundation, irrespective of diagnosis, the stage of the disease is based on the level of kidney function: Stage Description GFR(mL/min/1.73 m(2)) 1 Kidney damage with normal or decreased GFR 90 2 Kidney damage with mild decrease in GFR 60-89 3 Moderate decrease in GFR 30-59 4 Severe decrease in GFR 15-29 5 Kidney failure <15 (or dialysis) 17 AA SURGERY 09/14/14 Procedures Date CPT Code Description Status 11/21/2017 77842 EKG Tracing & Interpretation Completed 10/11/2017 01115 Inject/Drain Joint/Bursa Major Completed 09/04/2017 93198 Remove Impacted Cerumen Completed 07/11/2017 51731 Inject/Drain Joint/Bursa Major Completed 05/16/2017 67806 Inject/Drain Joint/Bursa Major Completed 03/19/2017 Mammogram Completed 01/18/2017 39799 Trigger Finger Release Incision / Tendon Sheath Completed Incision 01/18/2017 35297 Trigger Finger Release Incision / Tendon Sheath Completed Incision 07/11/2016 49558 Inject Tendon Sheath Or Ligament Aponeurosis Eg Plantar Completed Fascia 03/02/2016 49195 Trigger Finger Release Incision / Tendon Sheath Completed Incision 03/02/2016 06828 Trigger Finger Release Incision / Tendon Sheath Completed Incision 02/07/2016 49988 Trigger Finger Release Incision / Tendon Sheath Completed Incision 02/07/2016 16423 Trigger Finger Release Incision / Tendon Sheath Completed Incision 01/18/2016 Mammogram Completed 08/10/2015 25070 Inject Tendon Sheath Or Ligament Aponeurosis Eg Plantar Completed Fascia 06/28/2015 09486 TKR Total Knee Replacement Completed 06/28/2015 72348 TKR Total Knee Replacement Completed 06/28/2015 35046 EKG, Interpretation Only Completed 01/14/2015 63357 EKG, Interpretation Only Completed 12/29/2014 47456 Inject Tendon Sheath Or Ligament Aponeurosis Eg Plantar Completed Fascia 12/15/2014 42972 ECHO Transthorasic Realtime 2D W Doppler & Color Completed Flow Hosp 09/14/2014 06261 TKR Total Knee Replacement Completed 09/14/2014 50048 TKR Total Knee Replacement Completed 07/21/2014 79910 Rad Exam; Both Knees, Standing Ap Completed 04/06/2014 61787 Trigger Finger Release Incision / Tendon Sheath Completed Incision 11/11/2013 33739 Inject Tendon Sheath Or Ligament Aponeurosis Eg Plantar Completed Fascia 05/13/2013 41374 Inject Tendon Sheath Or Ligament Aponeurosis Eg Plantar Completed Fascia 09/03/2012 18876 Polysomnography Sleep Staging 4+ Parameters W/Cpap Completed 08/26/2012 27009 Polysomnography Sleep Staging 4+ Parameters Completed 07/13/2012 56317 ECHO Transthorasic Realtime 2D W Doppler & Color Completed Flow [facility] Encounters Type Date Location Provider CPT E/M Dx Office Visit 10/28/2017 3:00p [place]in[place] [address] Z00.00 Medicine - [address] R14.0 Office Visit 08/23/2017 10:30a [facility] [place] [address] M75.121 C.M.A. M19.011 S46.101A Office Visit 07/11/2017 8:30[place] [facility] [address] M75.121 C.M.A. M19.011 S46.101A Office Visit 07/03/2017 11:15a [facility] Marj Pappas 85533 M25.511 Of [place] RPA-C Office Visit 05/16/2017 2:00p Orthopedic Services Yudy Garcia 56730 M75.51 Of [place] Reynoso Office Visit 03/04/2017 10:10a [facility] Internal Medicine Antonio Urban, [address] D48.[address] Edgardo,FAC G47.33 E78.2 E03.9 Z23 Office Visit 12/26/2016 9:45a Orthopedic Services Yudy Garcia 46363 M65.331 Of [place] Reynoso Office Visit 09/05/2016 1:45p Pulmonology And Sleep Rea Bertrand, 51478 G47.33 Services Of [facility] HAYLEE, RN, REED CLEANER- R06.02 R09.02 Office Visit 07/09/2016 11:15a [facility] Of Lizzie Salas M.D. 41755 Z96.653 [place] M17.11 Z47.1 Office Visit 07/04/2016 3:30p [facility]opedic Services Yudy Garcia 63577 M65.331 Of [place] Reynoso Office Visit 01/30/2016 8:30a [facility] Services Yudy Garcia 83084 M65.311 Of [place] Reynoso M65.342 Office Visit 10/12/2015 2:15p [facility] Of Hiram Wise M.D. 52350 M17.12 Cu[place] Z09 Z96.653 Office Visit 06/30/2015 4:17p [facility], Jazmine Wen NRehana 58517 G47.33 Hospitalists J43.9 R09.02 I10 Office Visit 06/29/2015 4:16p [facility], Manjula Vincent.Ruperto 75457 G47.33 Hospitalists J43.9 R09.02 I10 Office Visit 06/28/2015 4:16p [facility] Napoleon Jones, 87045 G47.33 Assoc, Hospitalists N.PTerri J43.9 R09.02 I10 Office Visit 06/17/2015 2:45p [facility] Of Lizzie Salas M.D. 48331 M17.11 CZane M25.561 Office Visit 05/04/2015 10:45a [facility] Of Sylvia Villar, 10421 M17.11 C.MEfra RPA-C Office Visit 03/07/2015 10:00a Pulmonology And Sleep Rea Bertrand, 51233 327.23 Services Of Juwan LEACH RN, [facility] Office Visit 12/17/2014 [facility] 56177 584.9 Assoc, Hospitalists MPiedad 003.1 009.1 276.1 Office Visit 12/16/2014 10:45a [facility] Avery Mcallister, 13086 003.0 Infectious Diseases M.DTerri 790.7 003.8 416.8 Office Visit 12/16/2014 10:05p [facility], Kathy Owen, 43715 584.9 Hospitalists Edgardo 003.1 009.1 276.1 Office Visit 12/15/2014 10:04p [facility], Kathy Owen, 72346 584.9 Hospitalists MPiedad 003.1 276.1 009.1 Office Visit 12/14/2014 10:03p [facility], Kathy Owen, 98317 584.9 Hospitalists MPiedad 276.51 276.1 558.9 Office Visit 12/13/2014 10:02p [facility] Kathy Owen, 90325 276.51 Assoc, Hospitalists Edgardo 276.1 558.9 584.9 Office Visit 12/08/2014 10:00a [facility] Hiram Wise M.D. 29383 715.96 C.M.A. 715.36 Office Visit 11/17/2014 1:15p [facility] Hiram Wise M.D. 11017 715.16 C.M.A. 715.36 Office Visit 09/18/2014 2:03p [facility], Laine Bejarano, 27575 V43.65 Hospitalists N.P. 401.9 327.23 244.9 Office Visit 09/17/2014 2:03p [facility], Laine Bejarano, 85440 V43.65 Hospitalists N.P. 401.9 327.23 244.9 Office Visit 09/16/2014 2:03p Laine Bejarano N.P. 40068 V43.65 401.9 327.23 244.9 Office Visit 09/15/2014 [facility]jar[facility], 49340 V43.65 Hospitalists N.P. 401.9 327.23 244.9 Office Visit 07/21/2014 1:30p Orth[facility] Services iHram Wise M.D. 31324 715.96 Of C.M.A. Office Visit 05/19/2014 10:00a Orthopedic Services Antonino Vega M.D. 44246 715.16 Of C.M.A. Office Visit 03/24/2014 3:00p Orthopedic Services Yudy Garcia 14123 727.03 Of [facility] Office Visit 05/13/2013 2:45p Orthopedic Services Yudy Garcia 82424 727.03 Of [facility] Office Visit 09/02/2012 1:26p Mario Martin, 57788 327.23 [facility] M.Sofia Office Visit 08/08/2012 9:04a Mario Martin, 07358 786.09 Disorder Center M.Sofia 780.79 Office Visit 07/15/2012 11:30a [facility], Warren Marie, 22092 799.02 Hospitalists Edgardo 278.03 787.91 401.1 Office Visit 07/14/2012 2:12p [facility] Of Wali Naik M.D., 06013 786.09 [facility] FACC, FSCAI 401.9 Office Visit 07/14/2012 11:30a [facility]op[facility] Marie, 76482 799.02 Hospitalists Edgardo 278.03 787.91 401.1 Office Visit 07/13/2012 11:29a [facility] Warren Marie, 20779 799.02 Hospitalists Edgardo 278.03 787.91 401.1 Office Visit 07/12/2012 11:29a [facility] Tr Burns, 67328 799.02 Assoc, Hospitalists Edgardo 278.03 787.91 401.1 Office Visit 03/13/2012 2:00p Neurosurgery Services Zeferino Menendez, 28714 721.0 Of [facility] Edgardo 721.3 Office Visit 10/19/2008 2:40p Neurosurgery Services Zeferino Menendez, 38463 721.0 Of [facility] Edgardo 721.3 Plan of Care Future Appointment(s):02/12/2018 10:30 am - Rea Bertrand DNP, RN, REED CLEANER-BC at Pulmonology [facility] Sleep Services Of [facility]12/18/2017 7:30 am - Fallon Jones MD at Orthopedic [facility] Of [facility].12/05/2017 9:30 am - Fallon Jones MD at [facility] Of [facility].A.12/31/2017 11:15 am - Fallon Jones MD at [facility] Of [facility]..11/21/2017 - Sully Hernandez, NPZ01.818 Encounter for other preprocedural examinationNew Labs:CBC Auto DiffComp Metabolic PanelUrinalysis ProfileUrine Culture And SensitivitiesComments:Pt advised to stop her Naproxen for one week before surgeryI am ordering some routine preoperative lab work. The office will contact you with your results. You may take all of your usual medications the morning of your surgery, unless your surgeon tells you otherwise.M75.121 Complete rotatr-cuff tear/ruptr of r shoulder, not ubfisdR54.011 Primary osteoarthritis, right shoulder
[2017-12-18] MEDS ORDERED: ceFAZolin 2 GM PREMIX (*) 2 GM/50 ML BAG IVPB ONE (06:34)
[2017-12-18] MEDS ORDERED: Buffered Lidocaine 0.9% SYRIN* 5 ML/SYR SYRINGE ONE (06:34)
[2017-12-18] MEDS ORDERED: Famotidine IV* 10 MG/ML 2 ML (20 mg) ONE (06:34)
[2017-12-18] MEDS ORDERED: Lidocaine 2% PF * 5 ML VIAL ONE ×2 (07:07→08:32)
[2017-12-18] MEDS ORDERED: ROPIVACAINE 5 MG/ML 30 ML BTL (0.5%) ONE (07:08)
[2017-12-18] MEDS ORDERED: fentaNYL* 50 MCG/ML 2 ML VIAL (100 MCG VIAL) ONE (07:23)
[2017-12-18] MEDS ORDERED: Midazolam* 1 MG/ML 5 ML VIAL (5 MG) ONE (07:23)
[2017-12-18] MEDS ORDERED: KETAMINE HCL* 50 MG/ML 10 ML VIAL ONE (07:25)
[2017-12-18] MEDS ORDERED: Dexamethasone IV* 4 MG/ML 1 ML (4 MG) ONE (08:32)
[2017-12-18] MEDS ORDERED: Ketorolac INJ* 30 MG/ML 1 ML VIAL ONE (08:32)
[2017-12-18] MEDS ORDERED: DiMENhydriNATE IV* 50 MG/ML VIAL ONE (08:32)
[2017-12-18] MEDS ORDERED: Propofol* 10 MG/ML 20 ML BTL IV PUSH ONE (08:32)
[2017-12-18] MEDS ORDERED: diPHENhydraMINE PO* 25 MG PO PRN (10:17)
[2017-12-18] MEDS ORDERED: Ondansetron 40 MG VIAL* 2 MG/ML 20 ML VIAL IV PRN (10:17)
[2017-12-18] MEDS ORDERED: Cyclobenzaprine TAB* 10 MG PO PRN (10:17)
[2017-12-18] MEDS ORDERED: Acetaminophen TAB* 325 MG PO PRN ×2 (10:17→10:21)
[2017-12-18] MEDS ORDERED: Docusate CAP* 100 MG PO PRN (10:17)
[2017-12-18] MEDS ORDERED: Bisacodyl SUPP* 10 MG SUPP PR PRN (10:17)
[2017-12-18] MEDS ORDERED: Magnesium Hydroxide LIQ* 30 ML UDC PO PRN (10:17)
[2017-12-18] MEDS ORDERED: diPHENhydraMINE IV* 50 MG/ML 1 ml VIAL (BENADRYL) IV PRN (10:17)
[2017-12-18] MEDS ORDERED: Temazepam CAP* 15 MG PO PRN (10:17)
[2017-12-18] MEDS ORDERED: Ondansetron TAB* 4 MG PO PRN (10:17)
[2017-12-18] MEDS ORDERED: Polyethylene Glycol 3350* 17 GM PACKET PO PRN (10:17)
[2017-12-18] MEDS ORDERED: Levalbuterol 0.63MG/3ML NEB* UNIT OF USE INH PRN (10:21)
[2017-12-18] MEDS ORDERED: Ondansetron ODT TAB* 4 MG PO PRN (10:21)
[2017-12-18] MEDS ORDERED: Naloxone* 0.4 MG/ML 1 ML VIAL IV PRN (10:21)
--- NOTE | 2017-12-18 11:08 | RAD ---
HISTORY: Postop, shoulder arthroplasty COMPARISONS: May 16, 2017 VIEWS: 3, frontal and Views of the right shoulder FINDINGS: BONE DENSITY: Normal. BONES: The patient is status post right shoulder arthroplasty. There is no hardware failure or osteolysis. JOINTS: The patient is status post right shoulder arthroplasty. ALIGNMENT: There is no dislocation. SOFT TISSUES: Unremarkable. OTHER FINDINGS: None. IMPRESSION: STATUS POST RIGHT SHOULDER ARTHROPLASTY
[2017-12-18] MEDS: oxyCODONE/Acetamin 5/325 MG* TAB PO PRN ×2 (12:40→21:36)
[2017-12-18] MEDS: ceFAZolin 1 GM in Dextrose (*) 1 GM/50 ML BAG IVPB SCH (16:27)
[2017-12-18] MEDS: Gabapentin CAP(*) 400 MG PO SCH (17:12)
--- NOTE | 2017-12-18 20:18 | CONS ---
CONSULTATION REPORT: DATE OF CONSULT: 12/18/17 CONSULTING PROVIDER: Son Andrews MD REFERRING PHYSICIAN: Dr. Fallon Jones. REASON FOR CONSULT: Medical management of comorbidities in the setting of right total shoulder reverse specifically moderate pulmonary hypertension; COPD ; hypertension; ROBIN, on nocturnal CPAP. HISTORY OF PRESENT ILLNESS: Jelly Dover is an 82-year-old with PMH moderate pulmonary hypertension, COPD, former 40-pack year smoker, hypertension , hypothyroidism, restless legs syndrome, hyperlipidemia, obstructive sleep apnea (on 2 L CPAP at night), diastolic CHF, who presented for elective right shoulder reversal with Dr. Jones on 12/18/17. She has previously followed up in [facility] given dyspnea on exertion. She had a right heart catheterization in February 2013 and had evidence of a small PFO and left ventricular hypertrophy. She was started on Bumex, spironolactone. She is currently continued on spironolactone and Lasix 40 mg daily. She is unable to attest to her dry weight. She does not report any history of heart problems. She follows up with Dr. Loja for her ROBIN and COPD. She attest that she is normally very short of breath with walking up one flight of stairs. Her surgery went well. I talked to Dr. Cano of Anesthesiology. She was maintained on 60% oxygen throughout. She had some evidence of sinus arrhythmias on EKG with PACs and PVCs. Patient denies any history of AFib, irregular heart beat, or palpitations. Last echocardiogram in our system was showed ejection fraction of 55% to 60%, moderate pulmonary hypertension with RVSP of 42 mmHg and evidence of diastolic dysfunction. The patient's current complaints include some itchiness in her face and pain 6/10 in her right shoulder. PAST MEDICAL HISTORY: Moderate pulmonary hypertension, COPD, hypertension, hypothyroidism, restless legs syndrome, hyperlipidemia, obstructive sleep apnea , on 2 L nocturnal with CPAP, diastolic dysfunction, small PFO. PAST SURGICAL HISTORY: Includes appendectomy, left breast cyst removal, left bunion repair, gallbladder removal, hernia repair, left carpal tunnel, right carpal tunnel, spinal fusion at L4-L5, hysterectomy, right and left total knee replacement, trigger finger release x4. MEDICATIONS: Include: 1. Simvastatin 40 mg daily. 2. Tramadol 50 mg 1 to 2 tabs every 8 hours p.r.n. 3. Spironolactone 50 mg daily. 4. Nexium 40 mg daily. 5. Yuliana 180 mg daily p.r.n. 6. Neurontin 300 mg tablets 4 tablets at bedtime. 7. Carbidopa-levodopa 25/100 mg daily. 8. Levothyroxine 100 mcg daily. 9. Probiotic. 10. Furosemide 40 mg daily. 11. Albuterol 4 times daily p.r.n. ALLERGIES: AVELOX, NOVOCAINE, MORPHINE, MOXIFLOXACIN, DICLOFENAC. FAMILY HISTORY: Myocardial infarction in father. Alzheimer's disease in mother. SOCIAL HISTORY: Patient is a , living alone, retired. Former smoker, quit in 1999. Occasional alcohol use. No drug use. REVIEW OF SYSTEMS: A complete 14-point review of systems negative except as per HPI. PHYSICAL EXAM: General Appearance: No acute distress, lying down in PACU bed, covered in blankets, attesting to feeling chilly. Vital Signs: Temperature 97.3, pulse rate 98, respiratory rate 24, satting 90% on 2 L, blood pressure 160/99. HEENT: Normocephalic, atraumatic. Pupils are equally round and reactive to light. Extraocular motions intact. No scleral icterus. Neck: Supple. No cervical lymphadenopathy. Pulmonary: Clear to auscultation anteriorly without wheezing, rales, or rhonchi. Cardiovascular: Regular rate and rhythm. No murmurs, rubs, or gallops. Abdomen: Soft, nontender, nondistended. Extremities: Warm, well perfused. No peripheral edema. Neuro: Sensation intact. LABORATORY DATA: None. IMAGING: Shoulder x-ray demonstrated status post right shoulder arthroplasty. ASSESSMENT AND PLAN: Jelly Dover is an 82-year-old female with extensive respiratory history including chronic obstructive pulmonary disease; moderate pulmonary hypertension; suspected diastolic congestive heart failure; obstructive sleep apnea, on nocturnal oxygen, has successfully had a right shoulder reversal surgery arthroplasty with Dr. Jones. For her respiratory issues, I will continue her CPAP 2 L at night, continue supplemental oxygen, has maintained sats 88% to 92%. Continue her Lasix 40 mg daily and spironolactone 50 mg daily for her diastolic heart failure. For her hypertension, continue her diuretics as above. For her pain control, we will defer to orthopedics. Currently on Percocet 1 to 2 tabs q.4 hours p.r.n. p.o. with p.r.n. Narcan available for oversedation. For DVT prophylaxis, she has been started on Lovenox 40 mg q.24 hours. Would continue her carbidopa- levodopa and Flexeril. She is a full code. Thank you for this interesting consult. We will continue to follow. [id number]/[facility] #: [id number] [facility] HOSPITALGraham
[2017-12-18] MEDS: Atorvastatin* 20 MG TAB PO SCH (20:49)
[2017-12-18] MEDS: Carbidopa/Levodop 25/100 MG TAB(*) PO SCH (20:49)
[2017-12-18] MEDS: Ezetimibe TAB* 10 MG PO SCH (20:49)
[2017-12-19] MEDS: ceFAZolin 1 GM in Dextrose (*) 1 GM/50 ML BAG IVPB SCH ×2 (00:17→07:19)
[2017-12-19] MEDS: oxyCODONE TAB* 5 MG TAB PO PRN ×4 (00:24→21:49)
[2017-12-19] MEDS: oxyCODONE/Acetamin 5/325 MG* TAB PO PRN ×4 (03:45→19:37)
--- NOTE | 2017-12-19 05:55 | OP ---
DATE OF OPERATION: 12/18/17 - ROOM #337 DATE OF : 39 SURGEON: Fallon Jones MD MIXER RUNNER: PHILIP Vargas ANESTHESIOLOGIST: Dr. Cano. ANESTHESIA: General interscalene block. PRE-OP DIAGNOSIS: Right shoulder rotator cuff arthropathy. POST-OP DIAGNOSIS: Right shoulder rotator cuff arthropathy. OPERATIVE PROCEDURE: 1. Right shoulder reverse arthroplasty. 2. Biceps tenodesis. COMPLICATIONS: None. ESTIMATED BLOOD LOSS: 150 cc. OUTPUT: Drains x1. IMPLANTS: 20 Aequalis Flex Reverse with a size 25 x 30 glenoid base and a size 36 glenosphere with a size 4B stem and a centered baseplate with +6 poly. INDICATIONS: Jelly Dover is an 82-year-old female who has had longstanding right shoulder pain. She was diagnosed with a rotator cuff tear as well as biceps tendonitis. She had failed conservative management and has MRI findings confirming osteoarthritis with a full-thickness tear of the rotator cuff she has from 6 months ago. She has elected to proceed with surgical treatment. Risks and benefits of surgery were discussed at length included but not limited to bleeding, infection, damage to nerves, vessels, surrounding structures, wound nonhealing, persistent pain, need for further surgery, scarring, stiffness , incomplete relief of symptoms, risk of fracture, dislocation, risk of anesthesia, risk of DVT, need for further surgery. She underwent preoperative medical risk assessment and elected to proceed. DESCRIPTION OF PROCEDURE: The patient was greeted in the preoperative area by the attending surgeon. Correct extremity was marked and consent was confirmed. First she underwent interscalene nerve block by anesthesiologist in the preoperative area. The patient was brought back to the operating suite where she was placed in supine position on the operating table. She then underwent general anesthesia with endotracheal intubation after which she was placed in the lazy beach chair position. Padded towels were placed under the scapula. She was appropriately positioned and secured. All bony prominences were padded. The right shoulder was then prepped and draped in usual sterile fashion beginning with chlorhexidine soap, scrub and alcohol wipe and a final prep with ChloraPrep. After appropriate surgical pause indicating side, site, procedure and administration of antibiotics, the deltopectoral incision was made sharply with 11 blade. The soft tissue were carefully dissected, which exposed the fat strap and the cephalic vein. This was identified proximally and then taken laterally with the deltoid. Soft tissues were carefully dissected to expose the clavipectoral fascia which was incised. A Hohmann retractor as well as a Kolbel retractor was then placed to expose the anterior aspect of the shoulder. The bursa was removed. The pec was identified at its insertion on humerus in the proximal centimeter that was released. Biceps was then tenodesed to the pec tendon using a nonabsorbable suture. The biceps was tenotomized proximally and followed proximally into the shoulder joint itself. The subscap had a partial thickness tearing but there was still some attachment to the humeral head. The CA ligament was carefully released. The abundant bursal adhesions were carefully removed. There was evidence of a full thickness supraspinatus tear that was retracted significantly. Part of the infraspinatus was also torn as well. At this point, a subscap peel approach was then done and subscap was tagged with nonabsorbable suture and gently released while the shoulder was externally rotated, which exposed the grade 3 changes to the humeral head with moderate grade 4 changes. There was no obvious deformity. Once the subscap was completely removed and released of adhesions, the humeral head was gently dislocated to expose into the wound. The provisional cut was then marked using a electrocautery device. Once this was done, a sagittal saw was then used to free hand a humeral neck cut. Once this was done, the starting awl was then used to find the canal posterior to the bicipital groove. The sounding device was used with a 20 degrees of retroversion offset, size 3-4 was found to fit appropriately, size 5 was too tight. At this point, broaching began beginning with size 1 broach with care to try to retrovert about 20 degrees and lateralize as well. A size 3 was placed and then provisionally protected with a protector cap. At this point, attention was directed to the glenoid. The humerus was brought back into the wound and the glenoid was carefully exposed. The subscap was released off adhesions to the superior, middle and inferior glenohumeral ligament carefully. This allowed for mobilization of subscap which was then tucked back into the subscap fossa and anterior neck glenoid neck retractor was used for retraction anteriorly. A posterior retractor was used posteriorly. The glenoid was small in appearance and there were some mild arthritic changes. The labrum was then released getting superiorly all the way to the 5 o'clock position. Inferiorly, with tension of the soft tissues, the labrum was released from the 5 to the 7 o'clock position and the posterior labrum was also released as well. All soft tissues were carefully removed. The Saleh was then used to gently remove any cartilage from the glenoid. The wounds were copiously irrigated with sterile saline to remove any loose debris. At this point, the guide was brought and placed inferiorly in the glenoid surface with excellent purchase. This was then overreamed with a size 25 mm reamer and then a 36 mm footprint reamer that was hand reamed. After this was complete, a size 8 mm cannulated drill bit was then drilled and then a 6.5 mm drill bit was drilled to depths about 30 mm. This was confirmed with the depth gauge. The hole was then tacked and the final implant was chosen and screwed into place with excellent purchase. At this point, 3 interlocking screws of the appropriate length were then placed to help secure the glenoid and the final glenosphere was gently impacted in position, secured with a set screw. At this point, attention was directed back to the humerus. The humerus stem was checked and found to be a littlel loose and therefore it was trialed again. A size 4 was found to fit more appropriately. The centered tray was then screwed into position. The trial liner was then placed and the shoulder was gently reduced. Once the trial reduction resulted in a good fit and with appropriately managed shuck and range of motion of forward flexion to about 155, abduction to 90, external rotation to about 65, the shoulder was then gently dislocated. The final implants were chosen. The implant was removed en royal and the new final implants were then packed in place by the attending surgeon on the back table. The transosseous tunnels were then drilled for the subscap repair and placed with #5 Ethibond sutures. The final implant was gently impacted into place with excellent purchase. The shoulder was then reduced and taken through range of motion and still had the same range of motion. The wounds were copiously irrigated with sterile saline. At this point, the subscap was then secured using the previously placed transosseous sutures and passed in a horizontal mattress configuration and tied down. The wound was copiously irrigated again and then intraarticular drain was placed. Wounds were irrigated again and the deltopectoral interval was closed with #2 Ethibond suture in interrupted fashion. Wounds were finally irrigated one last time and the skin was closed in layers with 2-0 Vicryl and 3-0 Monocryl. Sterile dressings were applied. At the end of the case, it was noted that the drain had some leakage around the drain site itself. Her tissue quality was somewhat poor and it was felt that it was leaking around the drain. She was awoken from anesthesia and transferred to PACU in stable condition. POSTOPERATIVE PLAN: She will obtain postoperative images in the PACU. She will be nonweightbearing. She will be admitted overnight for observation, the drain will be discharged on postop day 1. She will receive 24 hours of post- operative antibiotic. She will start physical therapy beginning tomorrow. No active range of motion of shoulder but she is allowed to have active range of motion of the elbow, wrist and hand. We will continue to follow the patient while she is in hospital. DVT prophylaxis will be heparin while in the hospital and she will be discharged on none due to no previous or personal or family history. [id number]/[facility] #: [id number] [place]
[2017-12-19 06:15] LABS: Hematocrit 36 % (35-47); Hemoglobin 12.1 g/dl (12.0-16.0); Mean Platelet Volume 8.5 um3 (7.4-10.4); Platelet Count 258 10^3/ul (150-450)
[2017-12-19 06:25] LABS: EGFR Non-African American 87.7 (>60)
[2017-12-19] MEDS: Albuterol HFA INHALER* 8 gm MDI INH SCH (07:19)
[2017-12-19] MEDS: Furosemide TAB* 40 MG PO SCH (07:19)
[2017-12-19] MEDS: Cetirizine* 10 MG TAB PO SCH (07:19)
[2017-12-19] MEDS: Cyanocobalamin TAB* 500 MCG PO SCH (07:20)
[2017-12-19] MEDS: Omeprazole CAP* 20 MG PO SCH (07:20)
[2017-12-19] MEDS: Spironolactone TAB* 25 MG PO SCH (07:20)
[2017-12-19] MEDS: Misoprostol TAB* 100 MCG PO SCH (07:20)
[2017-12-19] MEDS: Levothyroxine TAB* 88 MCG TAB PO SCH (10:11)
--- NOTE | 2017-12-19 10:35 | PN ---
Subjective Date of Service: 12/19/17 Interval History: Pt without complaint. Asking about her synthroid which was changed to 88mcg recently by Dr. Urban. On 2L. Does not remember this provider from PACU interview. Objective Active Medications: Acetaminophen (Tylenol Tab*) 650 mg PO Q4H PRN PRN Reason: PAIN OR TEMPERATURE Albuterol (Ventolin Hfa Inhaler*) 1 puff INH QAM [facility] Last Admin: 12/19/17 07:19 Dose: 1 puff Atorvastatin Calcium (Lipitor*) 20 mg PO BEDTIME [facility] Last Admin: 12/18/17 20:49 Dose: 20 mg Bisacodyl (Dulcolax Supp*) 10 mg ND DAILY PRN PRN Reason: constipation Carbidopa/Levodopa (Sinemet 25/100 Tab(*)) 1 tab PO BEDTIME [facility] Last Admin: 12/18/17 20:49 Dose: 1 tab Cetirizine HCl (Zyrtec*) 10 mg PO QAM [facility] PRN Reason: Protocol Last Admin: 12/19/17 07:19 Dose: 10 mg Cyanocobalamin (Vitamin B12 Tab*) 1,000 mcg PO QAM [facility] Last Admin: 12/19/17 07:20 Dose: 1,000 mcg Cyclobenzaprine HCl (Flexeril Tab*) 10 mg PO TID PRN PRN Reason: SPASMS Diphenhydramine HCl (Benadryl Iv*) 25 mg IV Q6H PRN PRN Reason: itching Diphenhydramine HCl (Benadryl Po*) 25 mg PO Q6H PRN PRN Reason: itching Docusate Sodium (Colace Cap*) 100 mg PO BID PRN PRN Reason: CONSTIPATION Ezetimibe (Zetia Tab*) 10 mg PO BEDTIME [facility] Last Admin: 12/18/17 20:49 Dose: 10 mg Enoxaparin Sodium (Lovenox(*)) 40 mg SUBCUT Q24H [facility] Furosemide (Lasix Tab*) 40 mg PO QAM [facility] Last Admin: 12/19/17 07:19 Dose: 40 mg Gabapentin (Neurontin Cap(*)) 1,200 mg PO QPM [facility] Last Admin: 12/18/17 17:12 Dose: 1,200 mg Lactated Ringer's (Lactated Ringers 1000 Ml Bag*) 1,000 mls @ 100 mls/hr IV PER RATE [facility] Last Admin: 12/18/17 16:27 Dose: 100 mls/hr Lactulose (Lactulose*) 30 ml PO Q6H PRN PRN Reason: constipation Levothyroxine Sodium (Synthroid Tab*) 88 mcg PO DAILY@0600 [facility] Last Admin: 12/19/17 10:11 Dose: 88 mcg Magnesium Hydroxide (Milk Of Magnesia Liq*) 30 ml PO Q6H PRN PRN Reason: constipation Misoprostol (Cytotec Tab*) [facility] [place] Last Admin: 12/19/17 07:20 Dose: 100 mcg Omeprazole (Prilosec Cap*) 20 mg PO [facility] PRN Reason: Protocol Last Admin: 12/19/17 07:20 Dose: 20 mg Ondansetron HCl (Zofran 40 Mg Vial*) 4 mg IV Q6H PRN PRN Reason: nausea Ondansetron HCl (Zofran Tab*) 4 mg PO Q6H PRN PRN Reason: NAUSEA Oxycodone HCl (Roxycodone Tab*) 10 mg PO Q4H PRN PRN Reason: PAIN Last Admin: 12/19/17 07:20 Dose: 5 mg Oxycodone/Acetaminophen (Percocet 5/325 Tab*) 2 tab PO Q4H PRN PRN Reason: PAIN Last Admin: 12/19/17 09:28 Dose: 2 tab Oxycodone/Acetaminophen (Percocet 5/325 Tab*) 1 tab PO Q4H PRN PRN Reason: PAIN Last Admin: 12/19/17 03:45 Dose: 1 tab Polyethylene Glycol/Electrolytes (Miralax*) 17 gm PO DAILY PRN PRN Reason: Constipation Spironolactone (Aldactone Tab*) 50 mg PO [facility] Last Admin: 12/19/17 07:20 Dose: 50 mg Temazepam (Restoril Cap*) 15 mg PO BEDTIME PRN PRN Reason: INSOMNIA Vital Signs - 8 hr 12/19/17 12/19/17 12/19/17 03:45 04:03 06:19 Temperature 98.1 F Pulse Rate 67 Respiratory 16 16 16 Rate Blood Pressure 119/50 (mmHg) O2 Sat by Pulse 94 Oximetry 12/19/17 12/19/17 12/19/17 07:19 07:20 07:42 Temperature 97.4 F Pulse Rate 66 Respiratory 17 18 17 Rate Blood Pressure 102/50 (mmHg) O2 Sat by Pulse 97 97 Oximetry 12/19/17 12/19/17 09:28 09:32 Temperature Pulse Rate Respiratory 16 16 Rate Blood Pressure (mmHg) O2 Sat by Pulse Oximetry Oxygen Devices in Use Now: Nasal Cannula Appearance: NAD, sitting in about to eat breakfast. Eyes: No Scleral Icterus, PERRLA Ears/Nose/Mouth/Throat: NL Teeth, Lips, Gums, Mucous Membranes Moist Neck: NL Appearance and Movements; NL JVP, Trachea Midline Respiratory: Symmetrical Chest Expansion and Respiratory Effort, Clear to Auscultation Cardiovascular: NL Sounds; No Murmurs; No JVD, RRR Extremities: No Edema Skin: No Rash or Ulcers Neurological: Alert and Oriented x 3, NL Sensation, NL Muscle Strength and Tone Nutrition: Taking PO's Result Diagrams: 12/19/17 05:57 12/19/17 05:57 Additional Lab and Data: Laboratory Results - last 24 hr 12/19/17 12/19/17 05:57 05:57 Hgb 12.1 Hct 36 Plt Count 258 MPV 8.5 Sodium 137 L Potassium 3.8 Chloride 98 L Carbon Dioxide 34 H Anion Gap 5 BUN 10 Creatinine 0.65 Est GFR ( Amer) 112.8 Est GFR (Non-Af Amer) 87.7 BUN/Creatinine Ratio 15.4 Glucose 103 H Calcium 9.6 Assess/Plan/Problems-Billing Assessment: 82 yo female PMH moderate pHTN, former smoker, COPD, diastolic CHF presents for elective right shoulder reverse arthroplasty. - Patient Problems (1) Diastolic CHF Current Visit: Yes Status: Acute Code(s): I50.30 - UNSPECIFIED DIASTOLIC ( CONGESTIVE) HEART FAILURE SNOMED Code(s): 093259471 Comment: continuing lasix 40 qam continue spironolactone 50mg qam patient does not know her dry weight adding on a BNP to AM labs. (2) COPD (chronic obstructive pulmonary disease) Current Visit: No Status: Chronic Code(s): J44.9 - CHRONIC OBSTRUCTIVE PULMONARY DISEASE, UNSPECIFIED SNOMED Code(s): 62502056 Comment: No evidence of acute exacerbation. Continue albuterol (3) Hypertension Current Visit: No Status: Chronic Code(s): I10 - ESSENTIAL (PRIMARY) HYPERTENSION SNOMED Code(s): 87984219 Comment: BP well controlled. Resume spironolactone tomorrow. (4) Hypothyroidism Current Visit: No Status: Chronic Code(s): E03.9 - HYPOTHYROIDISM, UNSPECIFIED SNOMED Code(s): 88840380 Comment: added back her neto levothyroxine. 88mcg (5) ROBIN (obstructive sleep apnea) Current Visit: No Status: Chronic Priority: Low Code(s): G47.33 - OBSTRUCTIVE SLEEP APNEA (ADULT) (PEDIATRIC) SNOMED Code(s): 27420938 Comment: Cont CPAP (6) Pulmonary hypertension Current Visit: No Status: Chronic Priority: Medium Code(s): I27.2 - OTHER SECONDARY PULMONARY HYPERTENSION * DO NOT USE * SNOMED Code(s): 54081044 Comment: Noted to be moderate per echo 12/17. (7) Restless legs syndrome (RLS) Current Visit: No Status: Chronic (8) Status post arthroscopy of right shoulder Current Visit: Yes Status: Acute Code(s): Z98.890 - OTHER SPECIFIED POSTPROCEDURAL STATES SNOMED Code(s): 927806370 Comment: pain control per ortho dvt ppx with lovenox per ortho. PT/OT Status and Disposition: ortho inpatient. medicine consulting.
[2017-12-19] MEDS: Enoxaparin(*) 40 MG/0.4 ML SYR SUBCUT SCH (11:39)
--- NOTE | 2017-12-19 13:36 | PN ---
Progress Note - Progress Note Date of Service: 12/19/17 SOAP: Subjective: []Patient seen OOB in chair. She reports her RUE to be quite painfull. She denies any numbness of extremity. Denies chest pain, shortness of breath, dizziness or nausea. While working with PT O2 at 77% on RA, 2L replaced with increase to 97% within 90 seconds. Objective: [] Vital Signs Temp 97.9 F 12/19/17 11:19 Pulse 82 12/19/17 11:19 Resp 15 12/19/17 13:44 BP 111/54 12/19/17 11:19 Pulse Ox 96 12/19/17 11:19 Intake & Output 12/18/17 12/19/17 12/19/17 18:59 06:59 18:59 Intake Total 2080 1618 240 Output Total 600 1005 850 Balance 1480 613 -610 Intake: IV Fluids 1000 798 LR 798 lactated ringers 1000 IVPB 100 ABX - CEFAZOLIN 100 Oral 1080 720 240 Output: Hemovac Amount #1 5 Urine 600 1000 850 Other: Estimated Void Medium # Voids 1 Laboratory Last Values Hgb 12.1 g/dl (12.0-16.0) 12/19/17 05:57 Hct 36 % (35-47) 12/19/17 05:57 Plt Count 258 10^3/ul (150-450) 12/19/17 05:57 MPV 8.5 um3 (7.4-10.4) 12/19/17 05:57 Sodium 137 mmol/L (139-145) L 12/19/17 05:57 Potassium 3.8 mmol/L (3.5-5.0) 12/19/17 05:57 Chloride 98 mmol/L (101-111) L 12/19/17 05:57 Carbon Dioxide 34 mmol/L (22-32) H 12/19/17 05:57 Anion Gap 5 mmol/L (2-11) 12/19/17 05:57 BUN 10 mg/dL (6-24) 12/19/17 05:57 Creatinine 0.65 mg/dL (0.51-0.95) 12/19/17 05:57 Est GFR ( Amer) 112.8 (>60) 12/19/17 05:57 Est GFR (Non-Af Amer) 87.7 (>60) 12/19/17 05:57 BUN/Creatinine Ratio 15.4 (8-20) 12/19/17 05:57 Glucose 103 mg/dL (70-100) H 12/19/17 05:57 Calcium 9.6 mg/dL (8.6-10.3) 12/19/17 05:57 B-Natriuretic Peptide 48 pg/mL (-100) 12/19/17 05:57 General: Well appearing, NAD RUE: Sling in place. Drain pulled with tip intact and without complication. Minimal drainage collected in hemovac. Ecchymosis of upper arm, remains compressible without induration, not exquisitely tender. Flexion, extension of wrist intact. All 5 digits with flexion, extension, abduction, adduction. Sensation intact to light touch throughout all digits. Radial pulse 2+, capillary refill brisk distally. Assessment: []Right shoulder reverse arthoplasty Biceps tenodesis Plan: []Dressing change 12/20 RUE NWB,PROM only, no FF/adb >90, no ER >25 Likely DC tomorrow <Allegra Vargas - Last Filed: 12/19/17 13:44> - Progress Note SOAP: Pt seen and examined. Agree with above] <Fallon Jones - Last Filed: 12/21/17 08:03>
[2017-12-19] MEDS: Gabapentin CAP(*) 400 MG PO SCH (18:04)
[2017-12-19] MEDS: Atorvastatin* 20 MG TAB PO SCH (20:02)
[2017-12-19] MEDS: Ezetimibe TAB* 10 MG PO SCH (20:02)
[2017-12-19] MEDS: Carbidopa/Levodop 25/100 MG TAB(*) PO SCH (20:02)
[2017-12-20] MEDS: oxyCODONE/Acetamin 5/325 MG* TAB PO PRN ×3 (03:38→14:51)
[2017-12-20 06:07] LABS: Hematocrit 32 % (35-47); Hemoglobin 10.7 g/dl (12.0-16.0); Mean Platelet Volume 8.4 um3 (7.4-10.4); Platelet Count 210 10^3/ul (150-450)
[2017-12-20] MEDS: Levothyroxine TAB* 88 MCG TAB PO SCH (06:35)
[2017-12-20] MEDS: Cyanocobalamin TAB* 500 MCG PO SCH (09:34)
[2017-12-20] MEDS: Spironolactone TAB* 25 MG PO SCH (09:34)
[2017-12-20] MEDS: Cetirizine* 10 MG TAB PO SCH (09:35)
[2017-12-20] MEDS: Omeprazole CAP* 20 MG PO SCH (09:35)
[2017-12-20] MEDS: Misoprostol TAB* 100 MCG PO SCH (09:35)
[2017-12-20] MEDS: Furosemide TAB* 40 MG PO SCH (09:36)
[2017-12-20] MEDS: Albuterol HFA INHALER* 8 gm MDI INH SCH (09:37)
--- NOTE | 2017-12-20 10:40 | PN ---
Subjective Date of Service: 12/20/17 Interval History: pain in right shoulder tired. on 2L. planned home today. AF HDS Objective Active Medications: Acetaminophen (Tylenol Tab*) 650 mg PO Q4H PRN PRN Reason: PAIN OR TEMPERATURE Albuterol (Ventolin Hfa Inhaler*) 1 puff INH QAM [facility] Last Admin: 12/20/17 09:37 Dose: 1 puff Atorvastatin Calcium (Lipitor*) 20 mg PO BEDTIME [facility] Last Admin: 12/19/17 20:02 Dose: 20 mg Bisacodyl (Dulcolax Supp*) 10 mg IN DAILY PRN PRN Reason: constipation Carbidopa/Levodopa (Sinemet 25/100 Tab(*)) 1 tab PO BEDTIME [facility] Last Admin: 12/19/17 20:02 Dose: 1 tab Cetirizine HCl (Zyrtec*) 10 mg PO QAM [facility] PRN Reason: Protocol Last Admin: 12/20/17 09:35 Dose: 10 mg Cyanocobalamin (Vitamin B12 Tab*) 1,000 mcg PO QAM [facility] Last Admin: 12/20/17 09:34 Dose: 1,000 mcg Cyclobenzaprine HCl (Flexeril Tab*) 10 mg PO TID PRN PRN Reason: SPASMS Diphenhydramine HCl (Benadryl Iv*) 25 mg IV Q6H PRN PRN Reason: itching Diphenhydramine HCl (Benadryl Po*) 25 mg PO Q6H PRN PRN Reason: itching Docusate Sodium (Colace Cap*) 100 mg PO BID PRN PRN Reason: CONSTIPATION Last Admin: 12/20/17 09:36 Dose: 100 mg Ezetimibe (Zetia Tab*) 10 mg PO BEDTIME [facility] Last Admin: 12/19/17 20:02 Dose: 10 mg Enoxaparin Sodium (Lovenox(*)) 40 mg SUBCUT Q24H [facility] Last Admin: 12/19/17 11:39 Dose: 40 mg Furosemide (Lasix Tab*) 40 mg PO QAM [facility] Last Admin: 12/20/17 09:36 Dose: 40 mg Gabapentin (Neurontin Cap(*)) 1,200 mg PO QPM [facility] Last Admin: 12/19/17 18:04 Dose: 1,200 mg Lactated Ringer's (Lactated Ringers 1000 Ml Bag*) 1,000 mls @ 100 mls/hr IV PER RATE [facility] Last Admin: 12/18/17 16:27 Dose: 100 mls/hr Lactulose (Lactulose*) 30 ml PO Q6H PRN PRN Reason: constipation Levothyroxine Sodium (Synthroid Tab*) 88 mcg PO DAILY@0600 [facility] Last Admin: 12/20/17 06:35 Dose: 88 mcg Magnesium Hydroxide (Milk Of Magnesia Liq*) 30 ml PO Q6H PRN PRN Reason: constipation Last Admin: 12/20/17 09:36 Dose: 30 ml Misoprostol (Cytotec Tab*) 100 mcg PO [facility] Last Admin: 12/20/17 09:35 Dose: 100 mcg Omeprazole (Prilosec Cap*) 20 mg PO [facility] PRN Reason: Protocol Last Admin: 12/20/17 09:35 Dose: 20 mg Ondansetron HCl (Zofran 40 Mg Vial*) 4 mg IV Q6H PRN PRN Reason: nausea Ondansetron HCl (Zofran Tab*) 4 mg PO Q6H PRN PRN Reason: NAUSEA Oxycodone HCl (Roxycodone Tab*) 10 mg PO Q4H PRN PRN Reason: PAIN Last Admin: 12/19/17 21:49 Dose: 5 mg Oxycodone/Acetaminophen (Percocet 5/325 Tab*) 2 tab PO Q4H PRN PRN Reason: PAIN Last Admin: 12/19/17 13:29 Dose: 2 tab Oxycodone/Acetaminophen (Percocet 5/325 Tab*) 1 tab PO Q4H PRN PRN Reason: PAIN Last Admin: 12/20/17 09:35 Dose: 1 tab Polyethylene Glycol/Electrolytes (Miralax*) 17 gm PO DAILY PRN PRN Reason: Constipation Spironolactone (Aldactone Tab*) 50 mg PO [facility] Last Admin: 12/20/17 09:34 Dose: 50 mg Temazepam (Restoril Cap*) 15 mg PO BEDTIME PRN PRN Reason: INSOMNIA Vital Signs - 8 hr 12/20/17 12/20/17 12/20/17 03:22 03:38 04:02 Temperature 99.3 F Pulse Rate 94 Respiratory 16 16 Rate Blood Pressure 118/57 (mmHg) O2 Sat by Pulse 94 95 Oximetry 12/20/17 12/20/17 12/20/17 05:38 07:45 09:35 Temperature 97.9 F Pulse Rate 97 Respiratory 16 16 16 Rate Blood Pressure 124/51 (mmHg) O2 Sat by Pulse 100 Oximetry Oxygen Devices in Use Now: Nasal Cannula Appearance: NAD Eyes: No Scleral Icterus, PERRLA Neck: NL Appearance and Movements; NL JVP, Trachea Midline Respiratory: Symmetrical Chest Expansion and Respiratory Effort, Clear to Auscultation Cardiovascular: NL Sounds; No Murmurs; No JVD, RRR Extremities: - - trace edema b/l LE. RUE in sling(too big for her). Skin: No Rash or Ulcers, - Neurological: Alert and Oriented x 3, NL Sensation Nutrition: Taking PO's Result Diagrams: 12/20/17 05:47 12/19/17 05:57 Additional Lab and Data: Laboratory Results - last 24 hr 12/19/17 12/20/17 05:57 05:47 Hgb 10.7 L Hct 32 L Plt Count 210 MPV 8.4 B-Natriuretic Peptide 48 Assess/Plan/Problems-Billing Assessment: 82 yo female PMH moderate pHTN, former smoker, COPD, diastolic CHF, chronic O2 at night(2L) presents for elective right shoulder reverse arthroplasty. - Patient Problems (1) Diastolic CHF Current Visit: Yes Status: Acute Code(s): I50.30 - UNSPECIFIED DIASTOLIC ( CONGESTIVE) HEART FAILURE SNOMED Code(s): 685289467 Comment: some slight edema to LE. continuing lasix 40 qam and will give one time dose in afternoon today. continue spironolactone 50mg qam patient does not know her dry weight BNP 48. (2) COPD (chronic obstructive pulmonary disease) Current Visit: No Status: Chronic Code(s): J44.9 - CHRONIC OBSTRUCTIVE PULMONARY DISEASE, UNSPECIFIED SNOMED Code(s): 17305705 Comment: No evidence of acute exacerbation. Continue albuterol (3) Hypertension Current Visit: No Status: Chronic Code(s): I10 - ESSENTIAL (PRIMARY) HYPERTENSION SNOMED Code(s): 24299646 Comment: BP well controlled. On spironolactone 50, lasix 40 (4) Hypothyroidism Current Visit: No Status: Chronic Code(s): E03.9 - HYPOTHYROIDISM, UNSPECIFIED SNOMED Code(s): 00311851 Comment: added back her neto levothyroxine. 88mcg (5) ROBIN (obstructive sleep apnea) Current Visit: No Status: Chronic Priority: Low Code(s): G47.33 - OBSTRUCTIVE SLEEP APNEA (ADULT) (PEDIATRIC) SNOMED Code(s): 07808572 Comment: Cont CPAP (6) Pulmonary hypertension Current Visit: No Status: Chronic Priority: Medium Code(s): I27.2 - OTHER SECONDARY PULMONARY HYPERTENSION * DO NOT USE * SNOMED Code(s): 95196461 Comment: Noted to be moderate per echo 12/17. (7) Restless legs syndrome (RLS) Current Visit: No Status: Chronic (8) Status post arthroscopy of right shoulder Current Visit: Yes Status: Acute Code(s): Z98.890 - OTHER SPECIFIED POSTPROCEDURAL STATES SNOMED Code(s): 108562271 Comment: pain control per ortho dvt ppx with lovenox per ortho. PT/OT Status and Disposition: ortho inpatient. medicine consulting.
--- NOTE | 2017-12-20 11:43 | PN ---
Progress Note - Progress Note Date of Service: 12/20/17 SOAP: Subjective: 82 y/o female s/p R TSR 12/18. Patient working better with PT, will have daughter and son staying at home with her post-op. Feeling comfortable with D/ C to home, Pain controlled with PO pain medication. VSS, afebrile overnight. Objective: General- Well appearing, NAD, AO MSK- R UE- DRessing removed, steri strips intact, dry blood on gauze, no active bleeding seen, ecchymosis on medial prox humerus, purple in color, no induration, soft/ non-tender. TTP over proximal humerus, no warmth. Vital Signs Temp 98.2 F 12/20/17 11:46 Pulse 92 12/20/17 11:46 Resp 16 12/20/17 14:51 BP 129/56 12/20/17 11:46 Pulse Ox 97 12/20/17 11:46 Intake & Output 12/19/17 12/20/17 12/20/17 18:59 06:59 18:59 Intake Total 980 480 940 Output Total 1150 550 550 Balance -170 -70 390 Intake: Oral 980 480 940 Output: Urine 1150 550 550 Assessment: Stable s/p R TSR 12/18 Plan: - DVT prophylaxis- lovenox in house - Continue PT/ OT - Follow up with Dr. Jones - H&H - stable - post-op IV ABX - completed. - D/C to home today - VNS set up, patient will do PT by herself, feels comfortable, verbalized understanding Acetaminophen (Tylenol Tab*) 650 mg PO Q4H PRN PRN Reason: PAIN OR TEMPERATURE Albuterol (Ventolin Hfa Inhaler*) 1 puff INH QAM [facility] Last Admin: 12/20/17 09:37 Dose: 1 puff Atorvastatin Calcium (Lipitor*) 20 mg PO BEDTIME [facility] Last Admin: 12/19/17 20:02 Dose: 20 mg Bisacodyl (Dulcolax Supp*) 10 mg AL DAILY PRN PRN Reason: constipation Carbidopa/Levodopa (Sinemet 25/100 Tab(*)) 1 tab PO BEDTIME [facility] Last Admin: 12/19/17 20:02 Dose: 1 tab Cetirizine HCl (Zyrtec*) 10 mg PO QAM [facility] PRN Reason: Protocol Last Admin: 12/20/17 09:35 Dose: 10 mg Cyanocobalamin (Vitamin B12 Tab*) [facility] [place] Last Admin: 12/20/17 09:34 Dose: 1,000 mcg Cyclobenzaprine HCl (Flexeril Tab*) 10 mg PO TID PRN PRN Reason: SPASMS Diphenhydramine HCl (Benadryl Iv*) 25 mg IV Q6H PRN PRN Reason: itching Diphenhydramine HCl (Benadryl Po*) 25 mg PO Q6H PRN PRN Reason: itching Docusate Sodium (Colace Cap*) 100 mg PO BID PRN PRN Reason: CONSTIPATION Last Admin: 12/20/17 09:36 Dose: 100 mg Ezetimibe (Zetia Tab*) 10 mg PO BEDTIME [facility] Last Admin: 12/19/17 20:02 Dose: 10 mg Enoxaparin Sodium (Lovenox(*)) 40 mg SUBCUT Q24H [facility] Last Admin: 12/20/17 12:40 Dose: 40 mg Furosemide (Lasix Tab*) 40 mg PO [facility] Last Admin: 12/20/17 09:36 Dose: 40 mg Gabapentin (Neurontin Cap(*)) 1,200 mg PO QPM [facility] Last Admin: 12/19/17 18:04 Dose: 1,200 mg Lactulose (Lactulose*) 30 ml PO Q6H PRN PRN Reason: constipation Levothyroxine Sodium (Synthroid Tab*) 88 mcg PO DAILY@0600 [facility] Last Admin: 12/20/17 06:35 Dose: 88 mcg Magnesium Hydroxide (Milk Of Magnesia Liq*) 30 ml PO Q6H PRN PRN Reason: constipation Last Admin: 12/20/17 09:36 Dose: 30 ml Misoprostol (Cytotec Tab*) 100 mcg PO [facility] Last Admin: 12/20/17 09:35 Dose: 100 mcg Omeprazole (Prilosec Cap*) 20 mg PO [facility] PRN Reason: Protocol Last Admin: 12/20/17 09:35 Dose: 20 mg Ondansetron HCl (Zofran 40 Mg Vial*) 4 mg IV Q6H PRN PRN Reason: nausea Ondansetron HCl (Zofran Tab*) 4 mg PO Q6H PRN PRN Reason: NAUSEA Oxycodone HCl (Roxycodone Tab*) 10 mg PO Q4H PRN PRN Reason: PAIN Last Admin: 12/19/17 21:49 Dose: 5 mg Oxycodone/Acetaminophen (Percocet 5/325 Tab*) 2 tab PO Q4H PRN PRN Reason: PAIN Last Admin: 12/19/17 13:29 Dose: 2 tab Oxycodone/Acetaminophen (Percocet 5/325 Tab*) 1 tab PO Q4H PRN PRN Reason: PAIN Last Admin: 12/20/17 14:51 Dose: 1 tab Polyethylene Glycol/Electrolytes (Miralax*) 17 gm PO DAILY PRN PRN Reason: Constipation Spironolactone (Aldactone Tab*) 50 mg PO QAM [facility] Last Admin: 12/20/17 09:34 Dose: 50 mg Temazepam (Restoril Cap*) 15 mg PO BEDTIME PRN PRN Reason: INSOMNIA <Nicole Jimenez - Last Filed: 12/20/17 15:34> - Progress Note SOAP: Pt seen and examined. Agree with above. <Fallon Jones - Last Filed: 12/21/17 08:06>
[2017-12-20] MEDS: Enoxaparin(*) 40 MG/0.4 ML SYR SUBCUT SCH (12:40)
--- NOTE | 2017-12-20 12:57 | PN ---
Progress Note - Progress Note Date of Service: 12/19/17 SOAP: Subjective: Pt seen and examined at 6:00. Doing ok. Pain controlled but block wore off. No numbness and tingling. No chest pain or shortness of breath. Objective: AFVSS , on room air currently. AAOx3, NAD, pleasant. conversant R shoulder : dressing in place. sling in place. SILT grossly distally. able to flex/ext digits. 2+ radial pulse Assessment: A/P 82 yo F POD#1 from R reverse with open biceps tenodesis Plan: NWB. PT/OT remove drain today. dressing change tomorrow still working on pain control and mobilization. will d/c when stable
--- NOTE | 2017-12-20 13:01 | PN ---
Progress Note - Progress Note Date of Service: 12/20/17 SOAP: Subjective: Pt seen an examined at 6:30 am. Pain better controlled. On O2 for desat while walking. Did not do much with PT. sling long and bothersome to patient. Denies fevers, chills. Numbness ulnarly while in sling. has not removed sling Objective: Temp Pulse Resp BP Pulse Ox 97.9 F 97 15 124/51 100 12/20/17 07:45 12/20/17 07:45 12/20/17 12:22 12/20/17 07:45 12/20/17 07:45 NAD. AAOX3, RUE: dressing in place. SILT grossly distally. 2+ radial pulse. ABle to flex/ext digits Assessment: POD#2 from R reverse Plan: Needs PT/OT today. OOB to chair and mobilization per protocol adjusted sling dispo when stable requiring O2 which she did not have preop. appreciate med assistance
[2017-12-20 14:51] VITALS: BP 129/56
[2017-12-20] MEDS ORDERED: Furosemide TAB* 40 MG PO ONE (15:00)
--- NOTE | 2017-12-21 05:52 | DS ---
DISCHARGE SUMMARY: DATE OF ADMISSION: 12/18/17 DATE OF DISCHARGE: 12/20/17 SURGEON: Dr. Jones.* (DICTATED BY PHILIP WINSTON) PROCEDURE: 1. Right shoulder reverse arthroplasty. 2. Biceps tenodesis, 12/18/17, no complications. BRIEF HISTORY: The patient is an 82-year-old female who has been following with Dr. Jones for rotator cuff arthroplasty and osteoarthritis of the right shoulder. She failed conservative treatments and elected to undergo a right total shoulder reverse by Dr. Jones on 12/18/17. HOSPITAL COURSE: The patient was admitted to [facility] on 12/18/17 where she underwent a right shoulder reverse arthroplasty with biceps tenodesis with no complications and estimated blood loss of 150 cc. She recovered on the surgical short stay unit. Her Hemovac was removed on postoperative day 1 with an output of 5 mL. The patient completed her postoperative antibiotics. Her vital signs remained stable. She continued to work well with physical therapy and was aware of the restrictions on her arm. She did have some signs of neuropathy including numbness and tingling in her 4th and 5th fingers and was told by Dr. Jones that she will be able to remove the sling up to 4 times a day , for brief periods, to help with this. Her deep venous thrombosis prophylaxis was managed in- house with Lovenox, and she was followed as well by the hospitalist due to her history of hypertension, hypothyroidism, pulmonary hypertension, and obstructive sleep apnea, and remained stable. By postoperative day 2, she was medically and orthopedically stable for discharge to go home with visiting home nurse services. PHYSICAL EXAMINATION: General: Well appearing, in no acute distress. Alert and oriented, working well with physical therapy, walking down the glez. Vital Signs: Temperature 98.2, heart rate 92, respirations 16, oxygen saturation 97% on room air, blood pressure 129/56. Musculoskeletal: Right upper extremity dressing removed from surgical incision site. Surgical incision is intact, with old blood seen on gauze. No fresh blood seen. Steri-Strips are intact. Small area of superficial skin tear where the bandage was removed, under the axillary region, dressed with antibiotic ointment. Large ecchymosis noted on the proximal medial side of the upper arm. Nontender to touch, nonindurated, no warmth. Tenderness to palpation over the proximal aspect of the humerus, without any erythema or warmth. No drainage noted. Area was redressed and placed back into the sling after nurse helped the patient to put shirt back on. LABORATORY DATA: H and H stable at 10.7 and 32. DISCHARGE MEDICATIONS: 1. Tylenol 650 mg p.o. q.4 hours p.r.n. for pain, not to exceed more than 4000 mg of Tylenol a day, to be taken for mild pain. 2. Ventolin inhaler, 1 puff inhaled q.a.m. 3. Sinemet 25/100 one tablet p.o. q.h.s. 4. Vitamin B12 1000 mcg p.o. q.a.m. 5. Colace 100 mg p.o. b.i.d. 6. Nexium 40 mg p.o. q.a.m. 7. Vytorin 1 tablet p.o. q.h.s. 8. Yuliana 180 mg p.o. q.a.m. 9. Lasix 40 mg p.o. q.a.m. 10. Neurontin 1200 mg p.o. q.a.m. 11. Lactobacillus 1 cap p.o. q.a.m. 12. Levothyroxine 88 mcg p.o. q.a.m. 13. Misoprostol 100 mcg p.o. q.a.m. 14. Naproxen 500 mg p.o. q.a.m. 15. Percocet 1/2 tab to 2 tablets every 4 hours as needed for moderate-to- severe pain p.r.n. 16. Aldactone 50 mg p.o. q.a.m. CONDITION ON DISCHARGE: Stable. DISCHARGE INSTRUCTIONS: Ms. Dover is an 82-year-old female who is medically and orthopedically stable for discharge to go home with S home services. She will remain nonweightbearing for the right upper extremity, with no active range of motion. She may remove the arm from the splint 3 to 4 times a day to flex and/or extend the elbow if the nerve is being irritated; however, was told to continue to keep the elbow at her side. It is okay to shower, but the patient is unable to bathe, swim, or submerge the wound. She is to have a regular diet, increase fiber and fluids to prevent constipation. She is to use Percocet 5/325 mg for pain control as needed. She will follow up with Dr. Jones for a wound check. She had no other questions or concerns, but will call us if any do arise. She will call the office for any redness, increased pain, irritation around the incision site, or go immediately to the ER with any shortness of breath or chest pain. PHILIP WINSTON [id number]/[facility] #: [id number] [id number]
== END 2017-12-20 15:55 | disposition home health service (06) | DRG 483 ==
LOC: INTOOBSV 06:22 → AA 06:22 → OBSVTOIN 10:30 → SSU 12:10
PROVIDERS: ADMIT Orthopaedic Surgery; ATTEND Orthopaedic Surgery
PROC: 0RRJ00Z Replacement of Right Shoulder Joint with Reverse Ball and Socket Synthetic Substitute, Open Approach (ICD-10-PCS; principal; 2017-12-18 07:30)
DX: M75.121 Complete rotator cuff tear or rupture of right shoulder, not specified as traumatic (principal); I50.32 Chronic diastolic (congestive) heart failure; Q21.1 Atrial septal defect; M19.011 Primary osteoarthritis, right shoulder; E03.9 Hypothyroidism, unspecified; I27.20 Pulmonary hypertension, unspecified; G25.81 Restless legs syndrome; E78.00 Pure hypercholesterolemia, unspecified; G47.33 Obstructive sleep apnea (adult) (pediatric); Z96.653 Presence of artificial knee joint, bilateral; I11.0 Hypertensive heart disease with heart failure; J43.9 Emphysema, unspecified; G62.9 Polyneuropathy, unspecified; E66.01 Morbid (severe) obesity due to excess calories; M75.21 Bicipital tendinitis, right shoulder; Z90.710 Acquired absence of both cervix and uterus; Z88.5 Allergy status to narcotic agent; Z88.8 Allergy status to other drugs, medicaments and biological substances; Z82.0 Family history of epilepsy and other diseases of the nervous system; Z82.49 Family history of ischemic heart disease and other diseases of the circulatory system; Z87.891 Personal history of nicotine dependence; Z72.89 Other problems related to lifestyle; Z98.1 Arthrodesis status; Z90.49 Acquired absence of other specified parts of digestive tract; Z83.2 Family history of diseases of the blood and blood-forming organs and certain disorders involving the immune mechanism; Z68.39 Body mass index [BMI] 39.0-39.9, adult; Z99.81 Dependence on supplemental oxygen
CPT/HCPCS: 36415; 80048; 83880; 85014; 85018; 85049; 88304; 88311; A9270-GY; C1713; C1776; G8978-GP-CJ; G8979-GP-CI; G8987-GO-CK; G8988-GO-CK; J0690; J1100; J1240; J1650; J1885; J2250; J2405; J2704; J2795; J3010; S0191

== ENCOUNTER 2018-11-05 13:46 | Emergency (ER) | payer MEDICARE, OTHER ==
--- OUTSIDE RECORDS SUMMARY | 2018-11-05 14:12 | XMS REPORT | Continuity of Care Document ---
:1935 External Reference #:[id number] Author Name Charisma Brandt Care Team Providers Name Role Phone Antonio Urban MD Primary Care Physician Unavailable Payers Date Identification Numbers Payment Provider Subscriber Effective: 2002 Policy Number: [id number] Medicare Jelly Dover PayID: [id number] [address] [place] [address] Effective: 2002 Policy Number: [id number] For Life Davis Dover PayID: [id number] [address] [place] [address] Advance Directives Description No Information Available Problems Date Description Provider Status Onset: 12/08/2014 Osteoarthritis of knee Hiram Wise M.D. 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 Active Onset: 09/26/2015 Arthroplasty of knee Lizzie Salas M.D. 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 Onset: 01/28/2018 Neck pain Fallon Jones MD Active Onset: 04/09/2018 Mixed hyperlipidemia Antonio Urban Active Edgardo,FACP Onset: 05/15/2018 Lesion of ulnar nerve Fallon Jones MD Active Onset: 10/13/2018 Tibialis tendinitis Eddie Lieberman MD Active Onset: 07/11/2017 Full thickness rotator cuff tear Fallon Jones MD Resolved Resolved: 01/03/2018 Onset: 07/11/2017 Injury of shoulder region Fallon Jones MD Resolved Resolved: 01/03/2018 Family History Date Family Member(s) Observation Comments General MGP heart issues ; did not know PGP Father of massive heart attack at age 59 Father due to [place] () Mother at age 85 Mother [place]'s disease; pernecious anemia Siblings None Siblings 1 adopted sister Maternal Grandfather Heart Disease Maternal Grandmother Heart Disease Social History Type Date Description Comments Sex Unknown Marital Status Marital Status 2 Times Lives With Alone Occupation Retired Cigarette Use Quit 15 Years Ago Cigarette Use Pack Years - 47 ETOH Use 04/09/2018 Consumes 7 glasses of wine per week Tobacco Use Start: Unknown End: Patient is a former reports smoking 1/2 Unknown smoker to 2 packs per day x 40 years, quit in 1999 Recreational Drug Use Denies Drug Use Smoking Status Reviewed: 10/13/18 Patient is a former reports smoking 1/2 smoker to 2 packs per day x 40 years, quit in 1999 Exercise Type/Frequency Exercises sporadically Allergies, Adverse Reactions, Alerts Date Description Reaction Status Severity Comments 05/13/2013 Avelox Active 05/13/2013 Novocain Active 03/07/2015 Dichloralphenazone Active sick to stomach 03/07/2015 Morphine Active 08/25/2018 Tramadol Active Medications Medication Date Status Form Strength Qnty SIG Indications Ordering Provider Aspirin 04/[address] 81mg 90tab 1 by mouth s every day Sofia Urban M.D.,FACP Omeprazole 02/[address] 20mg 90tab 1 by mouth s every day Sofia Urban M.D.,AURORAP Anoro Ellipta 01/03 Active Aerosol 62.5-25mc 60uni 1 g/Inh ts inhalation Sofia Urban, daily M.D.,FACP Carbidopa-Levodo 01/02 Active Tablets 25-100mg 90tab 1 po qd s Sofia Urban M.D.,FACP Levothyroxine 12/05 Active Tablets 88mcg 90tab take one s tablet by Sofia Urban, mouth every M.DTerri,[facility] day in the morning Nystatin 11/27 Active Cream [id number] 30uni topically t/GM ts twice a day Sofia Urban, as needed M.Sofia,AURORAP Simvastatin 11/18 Active Tablets 40mg 90tab 1 by mouth Sully /2018 s every day TREVOR Hernandez Amoxicillin 10/11 Active Capsules 500mg 16cap 4 tablets 1 s hour before Sully, dental [employer] work, invasive gi or gu procedures Spironolactone 03/06 Active Tablets 50mg 90tab 1 by mouth s daily Sofia Urban M.D.,AURORAP Vitamin B12 03/06 Active Tablets 1000mg 1 by mouth every day Yuliana Active Tablets 180mg 30tab 1 po qd prn s Neurontin Active Capsules 300mg 360ca four ps tablets a Sofia Urban, bedtime M.Soifa,FACP daily Culturelle Active Capsules 30cap once a day s 15 billion cells per capsule Furosemide Active Tablets 40mg 90tab 1 by mouth s every day Sofia Urban M.D.,FACP Tramadol HCL 04/15 Hx Tablets 50mg 30tab four times s a day as Sofia Urban, - needed [facility] 08/25 Percocet 01/28 Hx Tablets 5-325mg 14tab 1 tabs by s mouth every MD Robert - 12 hours as 04/09 needed pain Ventolin HFA 01/03 Hx Aerosol 108(90Bas 18gm 2 puffs by Antonio e) mouth four Sofia Urban, - mcg/Act times a day M.D.,FACP 01/13 as needed Eliquis Starter 01/03 Hx Tablets 5mg 2 tabs Antonio Pack twice a day Sofia Urban, - for 7 days M.D.,FACP 01/10 then 1 tab /2017 twice a day Eliquis 01/03 Hx Tablets 5mg 180ta 1 by mouth Antonio bs twice a day Sofia Urban, - M.D.,[facility] 04/09 Tramadol HCL 10/11 Hx Tablets 50mg 40tab 1-2 tablets M75.121 s every 8 MD Robert - hours as 02/11 needed Ultracet 12/26 Hx Tablets 37.5-325m 20tab 1 tab by Yudy /2017 g s mouth every Garcia, - 4-6 hours M.D. 11/21 as needed pain Ultracet 01/29 Hx Tablets 37.5-325m 30tab 1-2 tabs by Yudy /2016 g s mouth every Garcia, - 4-6 hours M.D. 07/08 as needed pain Amoxicillin 06/20 Hx Tablets 500mg 30tab 1 by mouth Marita /2015 s tid for 10 Bordoni, - days. [employer] 08/09 Percocet 06/15 Hx Tablets 5-325mg 90tab 1-2 by M17.11 Lizzie s mouth every Josue, - 4 to 6 M.D. 08/09 hours needed pain Coumadin 06/15 Hx Tablets 2mg 60tab take 1-5 M17.11 Dirk s tablets as Frandy, - directed M.D. 08/09 Misoprostol 03/06 Hx Tablets 100mcg 90tab take one Sully s tablet by Mary, - mouth once [employer] 01/03 daily. Amoxicillin 01/03 Hx Tablets 500mg 8tabs take 4 tabs Dirk 1 hour Frandy, - before M.D. 08/09 dental procedure. Naproxen 10/13 Hx Tablets 500mg 90tab 1 tablet Sully s q12 hours Mary, - as needed [employer] 01/03 pain reduce to one tablet daily when able Percocet 10/13 Hx Tablets 5-325mg 50tab 1 by mouth Dirk s q8h prn Frandy, - pain M.D. 10/27 Percocet 10/13 Hx Tablets 5-325mg 80tab 1-2 by Dirk s mouth every Frandy, - 8 hours as M.D. 03/06 needed pain Diclofenac 05/[address] 75mg 180ta take 1 Antonino Sodium bs tablet by Silvia, - mouth twice M.D. 10/27 a /2014 Ultracet 03/24 Hx Tablets 37.5-325m 30tab 1 - 2 by Yudy g s mouth Garcia, - q4-6hr as M.D. 10/27 needed pain Nexium Hx Capsules 20mg 90cap 1 by mouth Antonio /0000 DR hillman every day Sofia Urban - Edgardo,FACP 02/12 Losartan Hx Tablets 50mg 90tab 1 po qd Unknown Potassium /0000 s - 03/06 Naproxen Ec Hx Tablets DR 500mg 60tab 1 po bid Unknown /0000 s - 05/19 Vytorin Hx Tablets 10-40mg 90tab 1 by mouth Sully /0000 s every day Mary, - [employer] 08/25 Carbidopa/Levodo Hx Tablets 25-100mg 270ta 1 po qd Unknown pa /0000 bs - 01/02 Bumetanide Hx Tablets 1mg 90tab 1 po qd Unknown /0000 s - 10/27 Spironolactone Hx Tablets 50mg 90tab 1 po qd Unknown /0000 s - 11/11 Levothyroxine Hx Tablets 100mcg 90tab 1 by mouth Sully Sodium /0000 s every day Mary, - [employer] 12/05 Spiriva 00 Hx Capsules 18mcg 30cap 1 Unknown Handihaler /0000 s inhalation - po qam 05/15 Multi-Day Hx Tablets 30tab 1 po qd Unknown Vitamins /0000 s - 03/06 Albuterol Hx Nebulizer (2.5mg/3M 1 vial via Unknown Sulfate /0000 L) 0.083% nebulizer 4 - times daily 01/03 as needed Medications Administered in Office Medication Date Status Form Strength Qnty SIG Indications Ordering Provider Triamcinolone 10/11/ Administered Injection Zaneb (Kenalog) 2017 MD Robert Triamcinolone 07/11/ Administered Injection Zaneb (Kenalog) 2016 MD Robert Depomedrol 40MG 05/16/ Administered Injection Yudy 2016 Edgardo Garcia Depomedrol 40MG 07/11/ Administered Injection Yudy 2015 Edgardo Garcia Depomedrol 40MG 08/10/ Administered Injection Yudy 2016 Edgardo Garcia Depomedrol 80MG 12/29/ Administered Injection Yudy 2014 Edgardo Garcia Depomedrol 80MG 11/11/ Administered Injection Yudy 2013 Edgardo Garcia Depomedrol 80MG 05/13/ Administered Injection Yudy 2012 Edgardo Garcia PPD 05/05/ Administered Injection Unknown 2007 Immunizations CPT Code Status Date Vaccine Reaction Lot # [id number] Given 08/25/2018 Tdap - [id number] Tetanus/Diptheria/Acellular Pertussis [id number] Given 05/12/2018 Influenza Virus Vaccine, [id number] Quadrivalent, Split, Preservative Free [id number] Given 05/16/2017 Influenza Virus Vaccine, No immediate [id number] Quadrivalent, Split, reaction..jh Preservative Free 15319 Given 03/04/2017 Pneumococcal Conjugate [id number] Vaccine 13 Valent For Intramuscular Use [id number] Given 04/05/2016 Fluzone Vaccine 31826 Given 06/05/2015 Pneumonia Vaccine [id number] Given 01/03/2006 Tdap - Tetanus/Diptheria/Acellular Pertussis Vital Signs Date Vital Result Comment 10/13/2018 11:02am Height 60.5 inches 5'0.50" Weight 201.00 lb Heart Rate 88 /min Respiratory Rate 16 /min Body Temperature 96.7 F Pain Level 2 BMI (Body Mass Index) 38.6 kg/m2 10/07/2018 1:16pm Height 60.5 inches 5'0.50" Weight 201.00 lb BP Systolic 118 mmHg BP Diastolic 68 mmHg Respiratory Rate 20 /min Pain Level 0 BMI (Body Mass Index) 38.6 kg/m2 08/25/2018 2:57pm Height 60.5 inches 5'0.50" Weight 201.00 lb Heart Rate 80 /min BP Systolic 120 mmHg BP Diastolic 65 mmHg Body Temperature 97.4 F O2 % BldC Oximetry 93 % BMI (Body Mass Index) 38.6 kg/m2 06/17/2018 10:28am Height 60.5 inches 5'0.50" Heart Rate 74 /min BP Systolic Sitting 110 mmHg BP Diastolic Sitting 60 mmHg Pain Level 0 05/15/2018 9:58am Height 60.5 inches 5'0.50" Heart Rate 82 /min BP Systolic 118 mmHg BP Diastolic 72 mmHg Body Temperature 98.4 F Pain Level 0 04/09/2018 10:01am Height 60.5 inches 5'0.50" Weight 196.00 lb Heart Rate 74 /min BP Systolic Sitting 132 mmHg BP Diastolic Sitting 70 mmHg Body Temperature 98.2 F O2 % BldC Oximetry 92 % BMI (Body Mass Index) 37.6 kg/m2 03/11/2018 10:28am Height 60.5 inches 5'0.50" Weight 194.00 lb Heart Rate 66 /min BP Systolic Sitting 110 mmHg BP Diastolic Sitting 70 mmHg Respiratory Rate 16 /min Pain Level 0 BMI (Body Mass Index) 37.3 kg/m2 02/12/2018 10:14am Height 60.5 inches 5'0.50" Weight 194.50 lb Heart Rate 76 /min BP Systolic Sitting 126 mmHg Lue reg cuff BP Diastolic Sitting 78 mmHg Lue reg cuff Respiratory Rate 14 /min O2 % BldC Oximetry 98 % On Ra BMI (Body Mass Index) 37.4 kg/m2 01/28/2018 10:54am Height 60.5 inches 5'0.50" Weight 195.00 lb Heart Rate 116 /min Respiratory Rate 20 /min Body Temperature 97.4 F Pain Level 2 BMI (Body Mass Index) 37.5 kg/m2 01/13/2018 3:11pm Height 60.5 inches 5'0.50" Weight 195.00 lb Heart Rate 95 /min BP Systolic Sitting 124 mmHg BP Diastolic Sitting 72 mmHg Body Temperature 98.2 F O2 % BldC Oximetry 94 % on 3L of O2 BMI (Body Mass Index) 37.5 kg/m2 01/03/2018 9:23am Height 60.5 inches 5'0.50" Weight 203.00 lb Heart Rate 94 /min BP Systolic Sitting 128 mmHg BP Diastolic Sitting 60 mmHg Body Temperature 98.7 F O2 % BldC Oximetry 73 % BMI (Body Mass Index) 39.0 kg/m2 12/31/2017 11:16am Height 60.5 inches 5'0.50" Weight 202.00 lb BP Systolic 112 mmHg BP Diastolic 64 mmHg Respiratory Rate 20 /min Body Temperature 98.6 F Pain Level 2 BMI (Body Mass Index) 38.8 kg/m2 12/05/2017 9:34am Height 60.5 inches 5'0.50" Weight 202.00 lb Heart Rate 88 /min BP Systolic 110 mmHg BP Diastolic 86 mmHg Respiratory Rate 20 /min Body Temperature 97.9 F Pain Level 0 BMI (Body Mass Index) 38.8 kg/m2 11/21/2017 11:18am Weight 200.00 lb Heart Rate 93 /min BP Systolic 122 mmHg BP Diastolic 72 mmHg Body Temperature 97.9 F O2 % BldC Oximetry 95 % 10/28/2017 3:45pm Weight 201.00 lb Heart Rate 77 /min BP Systolic 125 mmHg BP Diastolic 65 mmHg Body Temperature 98.2 F O2 % BldC Oximetry 95 % 10/11/2017 1:19pm Height 60.5 inches 5'0.50" Weight 215.00 lb BP Systolic 122 mmHg BP Diastolic 76 mmHg Respiratory Rate 20 /min Pain Level 7 BMI (Body Mass Index) 41.3 kg/m2 09/04/2017 11:10am Heart Rate 82 /min BP Systolic 117 mmHg BP Diastolic 62 mmHg Body Temperature 98.0 F O2 % BldC Oximetry 96 % 08/23/2017 10:33am Height 60.5 inches 5'0.50" Weight 215.00 lb BP Systolic 120 mmHg BP Diastolic 68 mmHg Respiratory Rate 20 /min Pain Level 2 BMI (Body Mass Index) 41.3 kg/m2 07/11/2017 8:35am Height 60.5 inches 5'0.50" Weight 215.00 lb Heart Rate 80 /min Respiratory Rate 14 /min Body Temperature 97.9 F Pain Level 0 BMI (Body Mass Index) 41.3 kg/m2 07/03/2017 10:52am Height 60.5 inches 5'0.50" Weight 215.00 lb Heart Rate 79 /min BP Systolic 12 mmHg BP Diastolic 0 mmHg BP Systolic Sitting 78 mmHg Body Temperature 96.9 F BMI (Body Mass Index) 41.3 kg/m2 05/16/2017 2:04pm Height 60.5 inches 5'0.50" Weight 215.00 lb Heart Rate 68 /min BP Systolic 124 mmHg BP Diastolic 62 mmHg Respiratory Rate 18 /min Body Temperature 96.0 F Pain Level 5 BMI (Body Mass Index) 41.3 kg/m2 03/04/2017 9:45am Height 60.5 inches 5'0.50" Weight 212.00 lb Heart Rate 67 /min BP Systolic Sitting 104 mmHg BP Diastolic Sitting 60 mmHg Body Temperature 97.7 F O2 % BldC Oximetry 97 % BMI (Body Mass Index) 40.7 kg/m2 02/18/2017 10:29am Height 60 inches 5'0" Weight 216.00 lb Heart Rate 77 /min BP Systolic 119 mmHg BP Diastolic 70 mmHg BMI (Body Mass Index) 42.2 kg/m2 01/28/2017 1:14pm Height 60 inches 5'0" Weight 216.00 lb Heart Rate 68 /min BP Systolic 112 mmHg BP Diastolic 78 mmHg Body Temperature 97.8 F Pain Level 0 BMI (Body Mass Index) 42.2 kg/m2 12/26/2016 9:56am Height 60 inches 5'0" Weight 216.00 lb BP Systolic 118 mmHg BP Diastolic 78 mmHg Body Temperature 97.8 F BMI (Body Mass Index) 42.2 kg/m2 09/05/2016 1:50pm Height 60 inches 5'0" Weight 200.00 lb Heart Rate 107 /min BP Systolic 104 mmHg BP Diastolic 62 mmHg Respiratory Rate 14 /min O2 % BldC Oximetry 93 % BMI (Body Mass Index) 39.1 kg/m2 07/11/2016 1:48pm Height 60 inches 5'0" Weight 200.00 lb Pain Level 7 BMI (Body Mass Index) 39.1 kg/m2 07/09/2016 11:29am Height 60 inches 5'0" Weight 200.00 lb Heart Rate 62 /min BP Systolic Sitting 98 mmHg BP Diastolic Sitting 68 mmHg Respiratory Rate 14 /min Pain Level 0 BMI (Body Mass Index) 39.1 kg/m2 07/04/2016 3:41pm Height 60 inches 5'0" Weight 200.00 lb Heart Rate 110 /min BP Systolic 137 mmHg BP Diastolic 65 mmHg BMI (Body Mass Index) 39.1 kg/m2 03/15/2016 2:16pm Height 60 inches 5'0" Weight 200.00 lb Body Temperature 98.1 F Pain Level 0 BMI (Body Mass Index) 39.1 kg/m2 02/20/2016 9:53am Height 70 inches 5'10" Weight 200.00 lb Heart Rate 64 /min Respiratory Rate 16 /min Body Temperature 98.3 F Pain Level 3 BMI (Body Mass Index) 28.7 kg/m2 02/17/2016 2:46pm Height 60 inches 5'0" Weight 200.00 lb Heart Rate 60 /min Respiratory Rate 16 /min Pain Level 0 BMI (Body Mass Index) 39.1 kg/m2 01/30/2016 8:39am Height 60 inches 5'0" Weight 200.00 lb BP Systolic 120 mmHg BP Diastolic 78 mmHg Pain Level 5 BMI (Body Mass Index) 39.1 kg/m2 10/12/2015 2:24pm Height 60 inches 5'0" Weight 200.00 lb Pain Level 0 BMI (Body Mass Index) 39.1 kg/m2 09/26/2015 10:34am Height 60 inches 5'0" Weight 200.00 lb Pain Level 0 BMI (Body Mass Index) 39.1 kg/m2 08/12/2015 10:19am Height 60 inches 5'0" Weight 200.00 lb Pain Level 2 ache BMI (Body Mass Index) 39.1 kg/m2 08/10/2015 2:49pm Height 60 inches 5'0" Weight 200.00 lb Heart Rate 64 /min BP Systolic Sitting 128 mmHg BP Diastolic Sitting 82 mmHg BMI (Body Mass Index) 39.1 kg/m2 07/11/2015 1:28pm Height 60 inches 5'0" Weight 199.00 lb Body Temperature 97.9 F BMI (Body Mass Index) 38.9 kg/m2 06/17/2015 3:00pm Height 60 inches 5'0" Weight 199.00 lb Heart Rate 68 /min BP Systolic 118 mmHg BP Diastolic 74 mmHg BMI (Body Mass Index) 38.9 kg/m2 06/15/2015 8:33am Height 60 inches 5'0" Weight 199.00 lb Heart Rate 68 /min BP Systolic Sitting 118 mmHg BP Diastolic Sitting 74 mmHg Pain Level 1 BMI (Body Mass Index) 38.9 kg/m2 05/04/2015 10:41am Height 60 inches 5'0" Weight 199.00 lb Pain Level 4 BMI (Body Mass Index) 38.9 kg/m2 03/07/2015 10:25am Height 60 inches 5'0" Weight 199.50 lb Heart Rate 85 /min BP Systolic Sitting 136 mmHg BP Diastolic Sitting 74 mmHg Respiratory Rate 20 /min Body Temperature 97.4 F O2 % BldC Oximetry 98 % BMI (Body Mass Index) 39.0 kg/m2 Neck Circumference in inches 15 01/13/2015 3:08pm Height 60 inches 5'0" Weight 200.00 lb Heart Rate 75 /min BP Systolic 116 mmHg BP Diastolic 81 mmHg Pain Level 0 BMI (Body Mass Index) 39.1 kg/m2 12/29/2014 9:35am Heart Rate 64 /min BP Systolic Sitting 110 mmHg BP Diastolic Sitting 60 mmHg 12/08/2014 10:08am Height 60 inches 5'0" Weight 200.00 lb Pain Level 6 BMI (Body Mass Index) 39.1 kg/m2 11/17/2014 1:28pm Height 60 inches 5'0" Weight 200.00 lb Pain Level 4 BMI (Body Mass Index) 39.1 kg/m2 10/27/2014 10:33am Height 60 inches 5'0" Weight 200.00 lb Heart Rate 80 /min BP Systolic Sitting 130 mmHg BP Diastolic Sitting 88 mmHg BMI (Body Mass Index) 39.1 kg/m2 10/13/2014 3:45pm Height 60 inches 5'0" Heart Rate 90 /min BP Systolic 104 mmHg BP Diastolic 67 mmHg Body Temperature 97.9 F 09/06/2014 11:04am Height 60 inches 5'0" Weight 200.00 lb Heart Rate 73 /min BP Systolic 127 mmHg BP Diastolic 79 mmHg BMI (Body Mass Index) 39.1 kg/m2 07/21/2014 1:49pm Height 60 inches 5'0" Weight 200.00 lb Heart Rate 89 /min BMI (Body Mass Index) 39.1 kg/m2 05/19/2014 10:06am Height 60 inches 5'0" Weight 200.00 lb Heart Rate 89 /min BP Systolic 119 mmHg BP Diastolic 80 mmHg BMI (Body Mass Index) 39.1 kg/m2 11/11/2013 2:35pm Heart Rate 88 /min BP Systolic Sitting 130 mmHg BP Diastolic Sitting 82 mmHg 05/13/2013 2:53pm Height 60 inches 5'0" Weight 200.00 lb BMI (Body Mass Index) 39.1 kg/m2 Results Test Date Facility Test Result H/L Range Note Lipid Profile 02/03/2018 [facility] Triglycerides 192 mg/dL 1 (Trig/Chol/HDL) [place] [address] [phone] Cholesterol 191 mg/dL 2 HDL Cholesterol 49.1 mg/dL 3 LDL Cholesterol 104 mg/dL 4 Laboratory test 02/03/2018 [facility] TSH (Thyroid 0.98 mcIU/mL N 0.34-5.[address] [facility] Stim Horm) [place] [address] [phone] Free T4 (Free Thyroxine) 0.80 ng/dL N 0.61-1.12 Basic Metabolic Panel 02/03/2018 [facility] Sodium 138 mmol/L N 135-145 [place] [address] [phone] Potassium 4.2 mmol/L N 3.5-5.0 Chloride 99 mmol/L Low 101-111 Co2 Carbon Dioxide 32 mmol/L N 22-32 Anion Gap 7 mmol/L N 2-11 Glucose 88 mg/dL N 70-100 Blood Urea Nitrogen 10 mg/dL N 6-24 Creatinine 0.61 mg/dL N 0.51-0.95 BUN/Creatinine Ratio 16.4 N 8-20 Calcium 10.4 mg/dL High 8.6-10.3 Egfr Non- 94.4 >60 Egfr 114.2 >60 5 Inr/Protime 12/05/2017 [facility] Inr 0.87 N 0.77-1.02 6 [place] [address] [phone] Laboratory test 12/05/2017 [facility] Partial 32.6 seconds N 26.0-36.[address] [place] [address] PTT [phone] CBC Auto Diff 12/05/2017 [facility] White Blood 7.1 10^3/uL N 3.5-10.[address] [place] [address] [phone] Red Blood Count 4.40 10^6/uL N 4.0-5.4 Hemoglobin 13.3 g/dL N 12.0-16.0 Hematocrit 40 % N 35-47 Mean Corpuscular Volume 91 fL N 80-97 Mean Corpuscular Hemoglobin 30 pg N 27-31 Mean Corpuscular HGB Conc 33 g/dL N 31-36 Red Cell Distribution Width 15 % N 10.5-15 Platelet Count 258 10^3/uL N 150-450 Mean Platelet Volume 8.8 um3 N 7.4-10.4 Abs Neutrophils 5.6 10^3/uL N 1.5-7.7 Abs Lymphocytes 0.8 10^3/uL Low 1.0-4.8 Abs Monocytes 0.6 10^3/uL N 0-0.8 Abs Eosinophils 0.1 10^3/uL N 0-0.6 Abs Basophils 0 10^3/uL N 0-0.2 Abs Nucleated RBC 0 10^3/uL Granulocyte % 78.6 % N 38-83 Lymphocyte % 11.5 % Low 25-47 Monocyte % 8.7 % High 0-7 Eosinophil % 0.9 % N 0-6 Basophil % 0.3 % N 0-2 Nucleated Red Blood Cells % 0.1 Comp Metabolic Panel 12/05/2017 [facility] Sodium 139 mmol/L N 139-[address] [place] [address] [phone] Potassium 4.1 mmol/L N 3.5-5.0 Chloride 97 mmol/L Low 101-111 Co2 Carbon Dioxide 35 mmol/L High 22-32 Anion Gap 7 mmol/L N 2-11 Glucose 85 mg/dL N 70-100 Blood Urea Nitrogen 15 mg/dL N 6-24 Creatinine 0.78 mg/dL N 0.51-0.95 BUN/Creatinine Ratio 19.2 N 8-20 Calcium 9.8 mg/dL N 8.6-10.3 Total Protein 6.7 g/dL N 6.4-8.9 Albumin 4.3 g/dL N 3.2-5.2 Globulin 2.4 g/dL N 2-4 Albumin/Globulin Ratio 1.8 N 1-3 Total Bilirubin 0.70 mg/dL N 0.2-1.0 Alkaline Phosphatase 58 U/L N 34-104 Alt 10 U/L N 7-52 Ast 10 U/L Low 13-39 Egfr Non- 71.1 >60 Egfr 91.4 >60 8 Laboratory test 12/05/2017 [facility] TSH (Thyroid 0.14 Low 0.34-5.[address] Stim Horm) mcIU/mL [place], [place] [id number] [phone] Free T4 (Free Thyroxine) 1.14 ng/dL High 0.61-1.12 10 Type & Screen 12/05/2017 [facility] Patient Blood Type O Positive [address] [place] [address] [phone] Antibody Screen NEGATIVE Urinalysis Profile 12/05/2017 [facility] Urine Color Straw [address] [place] [address] [phone] Urine Appearance Clear Urine Specific Easley 1.005 Low 1.010-1.030 Urine pH 6.0 N 5-9 Urine Urobilinogen Negative Negative Urine Ketones Negative Negative Urine Protein Negative Negative Urine Leukocytes 1+ Abnormal Negative Urine Blood Negative Negative Urine Nitrite Negative Negative Urine Bilirubin Negative Negative Urine Glucose Negative Negative Urine White Blood Cell Trace(0-5/hpf) Absent Urine Red Blood Cell Absent Absent Urine Bacteria Absent Absent Urine Squamous Epithelial Cell Present Abnormal Absent Urine Culture And 12/05/2017 [facility] Urine Culture SEE RESULT [address] [place] [address] [phone] Lipid Profile 09/09/2017 [facility] Triglycerides 203 mg/dL 12 (Trig/Chol/HDL) [address] [place] [address] [phone] Cholesterol 169 mg/dL 13 HDL Cholesterol 47.7 mg/dL 14 LDL Cholesterol 81 mg/dL 15 Laboratory test 09/09/2017 [facility] TSH (Thyroid 0.35 mcIU/mL N 0.34-5.[address] Stim Horm) [place] [address] [phone] Free T4 (Free Thyroxine) 0.93 ng/dL N 0.61-1.12 Basic Metabolic Panel 09/09/2017 [facility] Sodium 138 mmol/L N 133-[address] [place] [address] [phone] Potassium 4.6 mmol/L N 3.5-5.0 Chloride 99 mmol/L Low 101-111 Co2 Carbon Dioxide 34 mmol/L High 22-32 Anion Gap 5 mmol/L N 2-11 Glucose 86 mg/dL N 70-100 Blood Urea Nitrogen 14 mg/dL N 6-24 Creatinine 0.84 mg/dL N 0.51-0.95 BUN/Creatinine Ratio 16.7 N 8-20 Calcium 10.1 mg/dL N 8.6-10.3 Egfr Non- 65.4 >60 Egfr 84.1 >60 16 Xray 07/04/2017 [facility] Should[facility] Right <pending[facility] [place] [place] [address] [phone] Laboratory test 06/24/2015 [facility] Urine Culture And SEE RESULT [address] Sensitivities BELOW [place], [place] [id number] [phone] CBC No Diff 06/15/2015 [facility] White Blood Count 6.8 10^3/uL N 4.8- [address] 10[address]8 [place] [address] [phone] Red Blood Count 4.33 10^6/uL N 4.0-5.4 Hemoglobin 12.6 g/dL N 12.0-16.0 Hematocrit 40 % N 35-47 Mean Corpuscular Volume 92 fL N 80-97 Mean Corpuscular Hemoglobin 29 pg N 27-31 Mean Corpuscular HGB Conc 32 g/dL N 31-36 Red Cell Distribution Width 14 % N 10.5-15 Platelet Count 221 10^3/uL N 150-450 Mean Platelet Volume 10 um3 N 7.4-10.4 Laboratory test 06/15/2015 [facility] Urine Culture And SEE RESULT [address] [place] [address] [phone] Urinalysis 06/15/2015 [facility] Urine Color Straw N Profile [address] [place] [address] [phone] Urine Appearance Clear N Urine Specific Easley 1.006 Low 1.010-1.030 Urine pH 5.0 N 5-9 Urine Urobilinogen Negative N Negative Urine Ketones Negative N Negative Urine Protein Negative N Negative Urine Leukocytes Trace Abnormal Negative Urine Blood Negative N Negative Urine Nitrite Negative N Negative Urine Bilirubin Negative N Negative Urine Glucose Negative N Negative Urine White Blood Cell Trace(0-5/hpf) N Absent Urine Red Blood Cell Absent N Absent Urine Bacteria Absent N Absent Urine Squamous Epithelial Cell Present Abnormal Absent Urine Hyaline Casts Present Abnormal Absent Inr/Protime 06/15/2015 [facility] Inr 0.91 N 0.89-1.[address] [place] [address] [phone] Type & Screen 06/15/2015 [facility] Patient Blood O Positive [address] [place] [address] [phone] Antibody Screen NEGATIVE N Basic Metabolic Panel 06/15/2015 [facility] Sodium 136 mmol/L N 133-[address] [place] [address] [phone] Potassium 4.5 mmol/L N 3.5-5.0 Chloride 98 mmol/L Low 101-111 Co2 Carbon Dioxide 31 mmol/L N 22-32 Anion Gap 7 mmol/L N 2-11 Glucose 86 mg/dL N 70-100 Blood Urea Nitrogen 23 mg/dL N 6-24 Creatinine 1.13 mg/dL High 0.51-0.95 BUN/Creatinine Ratio 20.4 High 8-20 Calcium 9.9 mg/dL N 8.6-10.3 Egfr Non- 46.7 N >60 Egfr 60.0 N >60 21 CBC No Diff 01/14/2015 [facility] White Blood 7.6 10^3/uL N 4.8-10.[address] [place] [address] [phone] Red Blood Count 4.27 10^6/uL N 4.0-5.4 Hemoglobin 12.4 g/dL N 12.0-16.0 Hematocrit 39 % N 35-47 Mean Corpuscular Volume 90 fL N 80-97 Mean Corpuscular Hemoglobin 29 pg N 27-31 Mean Corpuscular HGB Conc 32 g/dL N 31-36 Red Cell Distribution Width 14 % N 10.5-15 Platelet Count 264 10^3/uL N 150-450 Mean Platelet Volume 9 um3 N 7.4-10.4 Urinalysis Profile 01/14/2015 [facility] Urine Color Colorless [address] [place] [address] [phone] Urine Appearance Clear N Urine Specific Easley 1.004 Low 1.010-1.030 Urine pH 6.0 N 5-9 Urine Urobilinogen Negative N Negative Urine Ketones Negative N Negative Urine Protein Negative N Negative Urine Leukocytes Trace Abnormal Negative Urine Blood Negative N Negative Urine Nitrite Negative N Negative Urine Bilirubin Negative N Negative Urine Glucose Negative N Negative Urine White Blood Cell Trace(0-5/hpf) N Absent Urine Red Blood Cell Absent N Absent Urine Bacteria Absent N Absent Urine Squamous Epithelial Cell Present Abnormal Absent Basic Metabolic Panel 01/14/2015 [facility] Sodium 135 mmol/L N 133-[address] [place] [address] [phone] Potassium 4.1 mmol/L N 3.5-5.0 Chloride 96 mmol/L Low 101-111 Co2 Carbon Dioxide 34 mmol/L High 22-32 Anion Gap 5 mmol/L N 2-11 Glucose 87 mg/dL N 70-100 Blood Urea Nitrogen 21 mg/dL N 6-24 Creatinine 0.94 mg/dL N 0.51-0.95 BUN/Creatinine Ratio 22.3 High 8-20 Calcium 9.9 mg/dL N 8.6-10.3 Egfr Non- 57.7 N >60 Egfr 74.3 N >60 23 Inr/Protime 01/14/2015 [facility] Inr 0.92 N 0.78-1.[address] [place] [address] [phone] Type & Screen 01/14/2015 [facility] Patient Blood O Positive [address] [place] [address] [phone] Antibody Screen NEGATIVE N Laboratory test 01/14/2015 [facility] Urine Culture And SEE RESULT [address] [place] [address] [phone] Urinalysis 09/06/2014 [facility] Urine Color Straw N [address] [place] [address] [phone] Urine Appearance Clear N Urine Specific Easley 1.006 Low 1.010-1.030 Urine pH 6.0 N 5-9 Urine Urobilinogen Negative N Negative Urine Ketones Negative N Negative Urine Protein Negative N Negative Urine Leukocytes Negative N Negative Urine Blood Negative N Negative Urine Nitrite Negative N Negative Urine Bilirubin Negative N Negative Urine Glucose Negative N Negative CBC No Diff 09/06/2014 [facility] White Blood 6.8 10^3/uL N 4.8-10.[address] [place] [address] [phone] Red Blood Count 3.99 10^6/uL Low 4.0-5.4 Hemoglobin 12.6 g/dL N 12.0-16.0 Hematocrit 38 % N 35-47 Mean Corpuscular Volume 95 fL N 80-97 Mean Corpuscular Hemoglobin 32 pg High 27-31 Mean Corpuscular HGB Conc 33 g/dL N 31-36 Red Cell Distribution Width 13 % N 10.5-15 Platelet Count 237 10^3/uL N 150-450 Mean Platelet Volume 10 um3 N 7.4-10.4 Inr/Protime 09/06/2014 [facility] Inr 0.92 N 0.78-1.07 [address] [place] [address] [phone] Basic Metabolic 09/06/2014 [facility] Sodium 132 mmol/L Low 133-145 Panel [address] [place] [address] [phone] Potassium 4.7 mmol/L N 3.5-5.0 Chloride 96 mmol/L Low 101-111 Co2 Carbon Dioxide 31 mmol/L N 22-32 Anion Gap 5 mmol/L N 2-11 Glucose 95 mg/dL N 70-100 Blood Urea Nitrogen 28 mg/dL High 6-24 Creatinine 1.05 mg/dL High 0.51-0.95 BUN/Creatinine Ratio 26.7 High 8-20 Calcium 10.4 mg/dL High 8.6-10.3 Egfr Non- 51.0 N >60 Egfr 65.5 N >60 27 Laboratory 09/06/2014 [facility] TSH (Thyroid 1.69 IU/mL N 0.34-5.60 28 test finding [address] [place] [address] Horm) [phone] Type & Screen 09/06/2014 [facility] Patient Blood O Positive N [address] [place] [address] [phone] Antibody Screen NEGATIVE N 1 Desirable: <150 Borderline High: 150-199 High: [...] 5 Kidney failure <15 (or dialysis) 6 12/18 7 12/18 8 Because ethnic data is not always readily [...] 15-29 5 Kidney failure <15 (or dialysis) 9 12/18 10 12/18 11 SEE RESULT BELOW Name: PITOJELLY : [address]: Fallno Jones MD Acct: [id number] Unit: [id number] AGE: 82 Location: PAT Re12/05/17 SEX: F Status: REG REF SPEC: [id number] GERARDO: 12/05/17-[address]: Fallon Jones MD REQ: [id number] RECD: 12/05/17 STATUS: COMP _ SOURCE: URINE SPDESC: ORDERED: Urine Culture Procedure Result Reported Site Urine Culture Final 05/04/18- 1229 ML No growth of clinically significant organisms * ML - Main Lab . END OF REPORT DEPARTMENT OF PATHOLOGY, [address] [place] [address] Ruperto Lozano M.D. Director [facility] # [id number] 12 Desirable: <150 Borderline High: 150-199 High: 200-499 Very High: >500 13 Desirable: <200 Borderline High: 200-239 High: >239 14 Low: <40 Desirable: 40-60 High: >60 15 Desirable: <100 Near Optimal: 100-129 Borderline High: 130-159 High: 160-189 Very High: >189 16 Because ethnic data is not always [...] 5 Kidney failure <15 (or dialysis) 17 SEE RESULT BELOW Name: JELLY DOVER Missy : [address]: Lizzie Salas MD Acct: [id number] Unit: [id number] AGE: 79 Location: LAB Re06/24/15 SEX: F Status: REG REF SPEC: [id number] GERARDO: 06/24/15-[address]: Marita Virk NP REQ: [id number] RECD: 06/24/15 STATUS: COMP _ SOURCE: URINE SPDESC: ORDERED: Urine Culture Urine Source: Random Procedure Result Verified Site Urine Culture Final 06/26/15- 933 ML Organism 1 NORMAL STEPH [place] Count 10-25,000 (Moderate) CFU/ML * ML - MAIN LAB ([facility]) . END OF REPORT * ML=Testing performed at Main Lab DEPARTMENT OF PATHOLOGY, [address] [place] [address] Ruperto Lozano M.D. Director [facility] # [id number] 18 06/21/15 19 SEE RESULT BELOW Name: JELLY DOVER : [address]: Hiram Wise MD Acct: [id number] Unit: [id number] AGE: 79 Location: [facility] Re06/15/15 SEX: F Status: REG REF SPEC: [id number] GERARDO: 06/15/15-1140 [facility] DR: Hiram Wise MD REQ: [id number] RECD: 06/15/15-1242 STATUS: DEE SHETTY DR: Fahad Ramirez MD _ SOURCE: URINE SPDESC: ORDERED: Urine Culture Procedure Result Verified Site Urine Culture Final 06/17/15- 1009 ML Organism 1 STREP GROUP B [place] Count 10-25,000 (Moderate) CFU/ML Organism 2 NORMAL STEPH [place] Count 1-10,000 (Few) CFU/ML Susceptibility testing of penicillins and other B-lactams approved by FDA for treatment of Streptococcus pyogenes (Group A Strep) and Streptococcus agalactiae (Group B Strep) is not necessary for clinical purposes and need not be done routinely, since as with vancomycin, resistant strains have not been recognized. (CLSI E075-Y21;p.66) Positive isolates will be saved for one week. Please call the Microbiology Laboratory if further susceptibility testing is needed. * ML - MAIN LAB ([facility]) . END OF REPORT * ML=Testing performed at Main Lab DEPARTMENT OF PATHOLOGY, [address] [place] [address] Ruperto Lozano M.D. Director [facility] # [id number] 20 Effective immediately, due to a laboratory mean normal Protime change, the reference range for the INR has changed. 21 Because ethnic data is not always readily [...] 15-29 5 Kidney failure <15 (or dialysis) 22 01/25 23 Because ethnic data is not always readily [...] 15-29 5 Kidney failure <15 (or dialysis) 24 SEE RESULT BELOW Name: JELLY DOVER : [address]: Hiram Wise MD Acct: [id number] Unit: [id number] AGE: 79 Location: PAT Re01/14/15 SEX: F Status: REG REF SPEC: [id number] GERARDO: 01/14/15-1405 [facility] [address]: Hiram Wise MD REQ: [id number] RECD: 01/14/15 STATUS: DEE SHETTY DR: Fahad Ramirez MD _ SOURCE: URINE SPDESC: ORDERED: Urine Culture Procedure Result Verified Site Urine Culture Final 01/16/15- 0942 ML Organism 1 NORMAL STEPH [place] Count 1-10,000 (Few) CFU/ML * ML - MAIN LAB ([facility]) . END OF REPORT * ML=Testing performed at Main Lab DEPARTMENT OF PATHOLOGY, [address] [place] [address] Ruperto Lozano M.D. Director [facility] # [id number] 25 AA SURGERY 09/14/14 26 Please note: Effective September 01, 2014, the reference value for this test has changed due to the validation and activation of a new reagent lot number. 27 Because ethnic data is not always readily [...] 15-29 5 Kidney failure <15 (or dialysis) 28 AA SURGERY 09/14/14 Procedures Date Code Description Status 12/18/2017 54766 Arthroplasty,Total Shoulder Replacement (TSR) Completed 12/18/2017 61359 Arthroplasty,Total Shoulder Replacement (TSR) Completed 11/21/2017 59244 EKG Tracing & Interpretation Completed 10/11/2017 92652 Inject/Drain Joint/Bursa Major W/O US Completed 09/04/2017 77273 Remove Impacted Cerumen Completed 07/11/2017 63668 Inject/Drain Joint/Bursa Major W/O US Completed 05/16/2017 44285 Inject/Drain Joint/Bursa Major W/O US Completed 03/19/2017 13108285 Mammogram Completed 01/18/2017 09574 Trigger Finger Release Incision / Tendon Sheath Completed Incision 01/18/2017 31842 Trigger Finger Release Incision / Tendon Sheath Completed Incision 07/11/2016 23133 Inject Tendon Sheath Or Ligament Aponeurosis Eg Plantar Completed Fascia 03/02/2016 47894 Trigger Finger Release Incision / Tendon Sheath Completed Incision 03/02/2016 53236 Trigger Finger Release Incision / Tendon Sheath Completed Incision 02/07/2016 83445 Trigger Finger Release Incision / Tendon Sheath Completed Incision 02/07/2016 26999 Trigger Finger Release Incision / Tendon Sheath Completed Incision 01/18/2016 63803140 Mammogram Completed 08/10/2015 99134 Inject Tendon Sheath Or Ligament Aponeurosis Eg Plantar Completed Fascia 06/28/2015 67130 TKR Total Knee Replacement Completed 06/28/2015 89321 TKR Total Knee Replacement Completed 06/28/2015 84492 EKG, Interpretation Only Completed 01/14/2015 12324 EKG, Interpretation Only Completed 12/29/2014 33256 Inject Tendon Sheath Or Ligament Aponeurosis Eg Plantar Completed Fascia 12/15/2014 68464 ECHO Transthorasic Realtime 2D W Doppler & Color Flow Completed Hosp 09/14/2014 86364 TKR Total Knee Replacement Completed 09/14/2014 69601 TKR Total Knee Replacement Completed 07/21/2014 84624 Rad Exam; Both Knees, Standing Ap Completed 04/06/2014 27041 Trigger Finger Release Incision / Tendon Sheath Completed Incision 11/11/2013 92389 Inject Tendon Sheath Or Ligament Aponeurosis Eg Plantar Completed Fascia 05/13/2013 38230 Inject Tendon Sheath Or Ligament Aponeurosis Eg Plantar Completed Fascia 09/03/2012 48176 Polysomnography Sleep Staging 4+ Parameters W/Cpap Completed 08/26/2012 29514 Polysomnography Sleep Staging 4+ Parameters Completed 07/13/2012 42002 ECHO Transthorasic Realtime 2D W Doppler & Color Flow Completed Hosp 10/04/2010 91558985 Colonoscopy Completed Encounters Type Date Location Provider Dx Diagnosis Office Visit 06/17/2018 Orthopedic Fallon Jones MD G56.21 Lesion of ulnar 10:15a Services Of C.M.A. nerve, right upper limb Office Visit 05/15/2018 Orthopedic Fallon Jones MD Z96.611 Presence of right 9:45a Services Of C.M.A. 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) Office Visit 01/13/2018 [facility] Internal Antonio Black I26.99 Other pulmonary 2:30p Medicine - [place] Edgardo Urban,FACP embolism without Rd acute cor pulmonale J44.9 Chronic obstructive pulmonary disease, unspecified E03.9 Hypothyroidism, unspecified Office Visit 01/03/2018 9:50a [facility] Internal Antonio Black I26.99 Other pulmonary Jagdish Urban M.D.,FACP embolism without [address] acute cor pulmonale E03.9 Hypothyroidism, unspecified J44.9 Chronic obstructive pulmonary disease, unspecified Office Visit 12/20/2017 1:33p [facility] Son Andrews, I51.9 Heart disease, Assoc,gopi POOLE unspecified Hospitalists I27.20 Pulmonary hypertension, unspecified J44.9 Chronic obstructive pulmonary disease, unspecified Z96.611 Presence of right artificial shoulder joint Office Visit 12/19/2017 1:32p [facility] Son Andrews, I51.9 Heart disease, Assoc,gopi POOLE unspecified Hospitalists I27.20 Pulmonary hypertension, unspecified J44.9 Chronic obstructive pulmonary disease, unspecified Z96.611 Presence of right artificial shoulder joint Office Visit 12/18/2017 1:29p [facility] Son Andrews, I51.9 Heart disease, Assoc,gopi POOLE unspecified Hospitalists I27.20 Pulmonary hypertension, unspecified J44.9 Chronic obstructive pulmonary disease, unspecified Z96.611 Presence of right artificial shoulder joint Office Visit 11/21/2017 [facility] Internal Sully Z01.818 Encounter for other 11:00a Jagdish - TREVOR Hernandez preprocedural [address] examination M75.121 Complete rotatr-cuff tear/ruptr of r shoulder, not trauma M19.011 Primary osteoarthritis, right shoulder I27.20 Pulmonary hypertension, unspecified J44.9 Chronic obstructive pulmonary disease, unspecified Office Visit 10/28/2017 3:00p [facility] Internal Sully Z00.00 Encntr for Medicine - [place] TREVOR Hernandez general adult Rd medical exam w/o abnormal findings R14.0 Abdominal distension (gaseous) Office Visit 10/11/2017 1:15p Orthopedic Nino Lara.121 Complete Services Of MD mcfarlandcuff C.M.ATerri tear/ruptr of r shoulder, not trauma M19.011 Primary osteoarthritis, right shoulder M25.511 Pain in right shoulder Office Visit 08/23/2017 10:30a Orthopedic Nino Lara.121 Complete Services Of MD mcfarlandcuff C.MTerriATerri tear/ruptr of r shoulder, not trauma M19.011 Primary osteoarthritis, right shoulder S46.101A Unsp injury of musc/fasc/tend long hd bicep, right arm, init Office Visit 07/11/2017 8:30a Orthopedic Nion Lara.121 Complete Services Of MD jaimes C.MEfra tear/ruptr of r shoulder, not trauma M19.011 Primary osteoarthritis, right shoulder S46.101A Unsp injury of musc/fasc/tend long hd bicep, right arm, init Office Visit 07/03/2017 11:15a Orthopedic Marj Mian, M25.511 Pain in right Services Of RPA-C shoulder C.M.A. Office Visit 05/16/2017 2:00p Orthopedic Yudy M75.51 Bursitis of Services Of Edgardo Garcia right shoulder C.M.A. 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 joint, bilateral M17.11 Unilateral primary osteoarthritis, right knee Z47.1 Aftercare following joint replacement surgery Office Visit 07/04/2016 3:30p Orthopedic Yudy Garcia, M65.331 Trigger Services Of Edgardo finger, right C.M.A. middle finger Office Visit 01/30/2016 8:30a Orthopedic Yudy Garcia, M65.311 Trigger thumb, Services Of M.Graham. right thumb C.M.A. M65.342 Trigger finger, left ring finger Office Visit 10/12/2015 Orthopedic Hiram Wise M17.12 Unilateral primary 2:15p Services Of Edgardo osteoarthritis, left C.M.A. knee Z09 Encntr for f/u exam aft trtmt for cond oth than malig neoplm Z96.653 Presence of artificial knee joint, bilateral Office Visit 06/30/2015 4:17p [facility] Jazmine Wen, G47.33 Obstructive sleep Assoc,pc N.P. apnea (adult) Hospitalists (pediatric) J43.9 Emphysema, unspecified R09.02 Hypoxemia I10 Essential (primary) hypertension Office Visit 06/29/2015 4:16p [facility] Jazmine Wen, G47.33 Obstructive sleep Assoc,pc N.P. apnea (adult) Hospitalists (pediatric) J43.9 Emphysema, unspecified R09.02 Hypoxemia I10 Essential (primary) hypertension Office Visit 06/28/2015 [facility] Napoleon G47.33 Obstructive sleep 4:16p Assoc,pc Jones, N.P. 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 knee M25.561 Pain in right knee Office Visit 05/04/2015 Orthopedic Sylvia M17.11 Unilateral primary 10:45a Services Of FITO Villar osteoarthritis, C.M.A. right knee Office Visit 03/07/2015 Pulmonology And Rea 327.23 Obstructive Sleep 10:00a Sleep Services Of HAYLEE Bertrand, Apnea Adult & Law Writer RN, [facility]- Pediatric Office Visit 12/17/2014 [facility] Radha 584.9 Acute Kidney 10:06p gopi Perdomo M.D. Failure, Unspecified Hospitalists 003.1 Salmonella Septicemia 009.1 Colitis Enteritis & Gastroenteritis Presumed Infectious Orig 276.1 Hyposmolality & Or Hyponatremia Office Visit 12/16/2014 [facility] Avery Black 003.0 Salmonella 10:45a For Infectious Edgardo Mcallister Gastroenteritis Diseases 790.7 Bacteremia 003.8 Salmonella Infections Other Spec 416.8 Pulmonary Heart Disease Other Chronic Office Visit 12/16/2014 [facility] Brayden, 584.9 Acute Kidney 10:05p gopi Perdomo M.D. Failure, Hospitalists Unspecified 003.1 Salmonella Septicemia 009.1 Colitis Enteritis & Gastroenteritis Presumed Infectious Orig 276.1 Hyposmolality & Or Hyponatremia [facility], 584.9 Acute Kidney 10:04p gopi Perdomo M.D. Failure, Hospitalists Unspecified 003.1 Salmonella Septicemia 276.1 Hyposmolality & Or Hyponatremia 009.1 Colitis Enteritis & Gastroenteritis Presumed Infectious Orig Office Visit 12/14/2014 [facility], 584.9 Acute Kidney 10:03p gopi Perdomo M.D. Failure, Hospitalists Unspecified 276.51 Dehydration 276.1 Hyposmolality & Or Hyponatremia 558.9 Gastroenteritis & Colitis Noninfectious Other Office Visit 12/13/2014 [facility], 276.51 Dehydration gopi Perdomo M.D. Hospitalists 276.1 Hyposmolality & Or Hyponatremia 558.9 Gastroenteritis & Colitis Noninfectious Other 584.9 Acute Kidney Failure, Unspecified Office Visit 12/08/2014 10:00a Orthopedic Hiram Wise, 715.96 Osteoarthrosis Services Of Edgardo Unspec Genlzd Or C.M.ATerri Localized Lower Leg 715.36 Osteoarthrosis Localzd Not Spec Prime Or 2Ndy Lower Leg Office Visit 11/17/2014 1:15p Orthopedic Hiram Wise, 715.16 Osteoarthrosis Services Of Edgardo Localized Prim Lower C.M.A. Leg 715.36 Osteoarthrosis Localzd Not Spec Prime Or 2Ndy Lower Leg Office Visit 09/18/2014 2:03p [facility] Laine S. V43.65 Knee Replacement Assoc,pc Foster, N.P. By Other Means Hospitalists 401.9 Hypertension Unspec 327.23 Obstructive Sleep Apnea Adult & Pediatric 244.9 Hypothyroidism Other Unspec Office Visit 09/17/2014 2:03p [facility] Laine S. V43.65 Knee Replacement Assoc,pc Foster, N.P. By Other Means Hospitalists 401.9 Hypertension Unspec 327.23 Obstructive Sleep Apnea Adult & Pediatric 244.9 Hypothyroidism Other Unspec Office Visit 09/16/2014 2:03p Laine S. Foster, N.P. V43.65 Knee Replacement By Other Means 401.9 Hypertension Unspec 327.23 Obstructive Sleep Apnea Adult & Pediatric 244.9 Hypothyroidism Other Unspec Office Visit 09/15/2014 2:03p [facility] Laine S. V43.65 Knee Replacement Assoc,pc Foster, N.P. By Other Means Hospitalists 401.9 Hypertension Unspec 327.23 Obstructive Sleep Apnea Adult & Pediatric 244.9 Hypothyroidism Other Unspec Office Visit 07/21/2014 Orthopedic Hiram Wise, 715.96 Osteoarthrosis 1:30p Services Of Edgardo Unspec Genlzd Or C.M.A. Localized Lower Leg Office Visit 05/19/2014 Orthopedic Antonino Vega 715.16 Osteoarthrosis 10:00a Services Of Edgardo Localized Prim C.M.A. Lower Leg Office Visit 03/24/2014 Orthopedic Yudy 727.03 Trigger Finger 3:00p Services Of Juwan Garcia M.D. Acquired AT [place] Office Visit 05/13/2013 Orthopedic Yudy 727.03 Trigger Finger 2:45p Services Of Juwan Garcia M.D. Acquired AT [place] Office Visit 09/02/2012 Mario Ivy 327.23 Obstructive Sleep 1:26p Disorder Pedro Martin M.D. Apnea Adult & Pediatric Office Visit 08/08/2012 Mario Ivy 786.09 Dyspnea & 9:04a Disorder Pedro Martin M.D. Respiratory Abnormalities Other 780.79 Malaise And Fatigue Other Office Visit 07/15/2012 11:30a [facility] Warrensuzan Marie, 799.02 Hypoxemia Assoc, Hospitalists Edgardo 278.03 Obesity Hypoventilation Syndrome 787.91 Diarrhea 401.1 Hypertension Benign Office Visit 07/14/2012 2:12p Flavio Naik, 786.09 Dyspnea & Cardiology Of M.D., FACC, Respiratory [facility] FSCAI Abnormalities Other 401.9 Hypertension Unspec Office Visit 07/14/2012 11:30a [facility] Warren Karradha, 799.02 Hypoxemia Assoc, Hospitalists Edgardo 278.03 Obesity Hypoventilation Syndrome 787.91 Diarrhea 401.1 Hypertension Benign Office Visit 07/13/2012 11:29a [facility] Warren Gruporadha, 799.02 Hypoxemia Assoc,[facility] Hospitalists Edgardo 278.03 Obesity Hypoventilation Syndrome 787.91 Diarrhea 401.1 Hypertension Benign Office Visit 07/12/2012 11:29a [facility] Tr Burns, 799.02 Hypoxemia Assoc, Edgardo Hospitalists 278.03 Obesity Hypoventilation Syndrome 787.91 Diarrhea 401.1 Hypertension Benign Office Visit 03/13/2012 2:00p Neurosurgery Zeferino Manley 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 at [facility] Internal Medicine [facility]10/13/2018 - Eddie Lieberman, MDM76.822 Posterior tibial tendinitis, left legNew Therapy:Physical TherapyFollow up:Follow Up: 6 weeks
--- OUTSIDE RECORDS SUMMARY | 2018-11-05 14:13 | XMS REPORT | Continuity of Care Document ---
:1935 External Reference #:[id number] Author Name Charisma Brandt Care Team Providers Name Role Phone Antonio Urban MD Primary Care Physician Unavailable Payers Date Identification Numbers Payment Provider Subscriber Effective: 2002 Policy Number: [id number] Medicare Jelly Dover PayID: [id number] [address] [place] [address] Effective: 2002 Policy Number: [id number] For Life Davis Dover PayID: [id number] [address] [place] [address] Advance Directives Description No Information Available Problems Date Description Provider Status Onset: 12/08/2014 Osteoarthritis of knee Hiram Wise M.D. Active Onset: 08/26/2012 Obstructive sleep apnea of adult Rea Bertrand DNP, RN, Active TOBACCO PRIZER- Note: 08/26/12 on CPAP with O2 2L [...] ulnar nerve Fallon Jones MD Active Onset: 07/11/2017 Full thickness rotator cuff tear Fallon Jones MD Resolved Resolved: 01/03/2018 Onset: 07/11/2017 Injury of shoulder region Fallon Jones MD Resolved Resolved: 01/03/2018 Family History Date Family Member(s) Observation Comments General MGP heart issues ; did not know PGP Father of massive heart attack at age 59 Father due to [place] () Mother at age 85 Mother Shashank's [...] Use Denies Drug Use Smoking Status Reviewed: 10/07/18 Patient is a former reports smoking 1/2 [...] Indications Ordering Provider Aspirin 04/09 Active Tablets 81mg 90tab 1 by mouth /Jacqueline s every day Sofia Urban M.D.,FACP Omeprazole 02/[address] 20mg 90tab 1 by mouth s every day Sofia Urban M.D.,FACP Anoro Ellipta 01/03 Active Aerosol 62.5-25mc 60uni 1 g/Inh ts inhalation Sofia Urban, daily M.D.,FACP Carbidopa-Levodo 01/02 Active Tablets 25-100mg 90tab 1 po qd pa s Sofia Urban M.D.,FACP Levothyroxine 12/05 Active Tablets 88mcg 90tab take one s tablet by Sofia Urban, mouth every M.D.,FACP day in the morning Nystatin 11/27 Active Cream [id number] 30uni topically t/GM ts twice a day Sofia Urban, as needed M.DTerri,FACP Simvastatin 11/18 Active Tablets 40mg 90tab 1 by mouth Sully /2018 s every day TREVOR Hernandez Amoxicillin 10/11 Active Capsules 500mg 16cap 4 tablets 1 s hour before Sully, dental [employer] work, invasive gi or gu procedures Spironolactone 03/06 Active Tablets 50mg 90tab 1 by mouth s daily Sofia Urban M.D.,[facility] Vitamin B12 03/06 Active Tablets 1000mg 1 by mouth every day Yuliana Active Tablets 180mg 30tab 1 po qd prn s Neurontin Active Capsules 300mg 360ca four ps tablets a Sofia Urban, bedtime James.Sofia,FACP daily Culturelle Active Capsules 30cap once a day s 15 billion cells per capsule Furosemide Active Tablets 40mg 90tab 1 by mouth s every day Sofia Urban M.D.,FACP Tramadol HCL 04/15 Hx Tablets 50mg 30tab four times s a day as Sofia Urban, - needed MPiedad,FACP 08/25 Percocet 01/28 Hx Tablets 5-325mg 14tab 1 tabs by s mouth every Yase, MD - 12 hours as 04/09 needed pain /2017 Ventolin HFA 01/03 Hx Aerosol 108(90Bas 18gm [...] bs twice a day Sofia Urban, - M.D.,[facility] 04/09 Tramadol HCL 10/11 Hx Tablets 50mg 40tab 1-2 tablets M75.121 s every 8 MD Robert - hours as 02/11 Ultracet 12/26 Hx Tablets 37.5-325m 20tab 1 tab by Yudy g s mouth every Garcia, - 4-6 hours M.D. 11/21 as needed pain Ultracet 01/29 Hx Tablets 37.5-325m 30tab 1-2 tabs by Yudy g s mouth every Garcia, - 4-6 hours M.D. 07/08 as needed pain Amoxicillin 06/20 Hx Tablets 500mg 30tab 1 by mouth Marita /2015 s tid for 10 Bordoni, - days. [employer] 08/09 Percocet 06/15 Hx Tablets 5-325mg 90tab 1-2 by M17.11 Lizzie s mouth every Josue, - 4 to 6 M.D. 08/09 hours as needed pain Coumadin 06/15 Hx Tablets 2mg 60tab take 1-5 M17.11 Dirk s tablets as Frandy, - directed M.D. 08/09 Misoprostol 03/06 Hx Tablets 100mcg 90tab take one Sully s tablet by Mary, - mouth once [employer] 01/03 daily. Amoxicillin 01/03 Hx Tablets 500mg 8tabs take 4 tabs Dirk 1 hour Frandy, - before M.D. 08/09 dental /2016 procedure. Naproxen 10/13 Hx Tablets 500mg 90tab 1 tablet Sully s q12 hours Mary, - as needed [employer] 01/03 pain reduce to one tablet daily when able Percocet 10/13 Hx Tablets 5-325mg 50tab 1 by mouth Dirk /2014 s q8h prn Frandy, - pain M.D. 10/27 Percocet 10/13 Hx Tablets 5-325mg 80tab 1-2 by Dirk s mouth every Frandy, - 8 hours as M.D. 03/06 needed pain /2014 Diclofenac 05/[address] 75mg 180ta take 1 bs tablet by Silvia, - mouth twice M.D. 10/27 a day /2014 Ultracet 03/24 Hx Tablets 37.5-325m 30tab 1 - 2 by Yudy g s mouth Garcia, - q4-6hr as M.D. 10/27 needed pain Nexium Hx Capsules 20mg 90cap 1 by mouth Antonio /0000 DR s every day Sofia Urban, - Edgardo,FACP 02/12 Losartan Hx Tablets 50mg 90tab 1 po qd Unknown Potassium /0000 s - 03/06 Naproxen Ec Hx Tablets DR 500mg 60tab 1 po bid Unknown /0000 s - 05/19 Vytorin Hx Tablets 10-40mg 90tab 1 by mouth Sully /0000 s every day Mary, - [employer] 08/25 Carbidopa/Levodo Hx Tablets 25-100mg 270ta 1 po qd Unknown pa /0000 bs - 01/02 Bumetanide 00 Hx Tablets 1mg 90tab 1 po qd Unknown /0000 s - 10/27 Spironolactone /00 Hx Tablets 50mg 90tab 1 po qd Unknown /0000 s - 11/11 Levothyroxine 00 Hx Tablets 100mcg 90tab 1 by mouth Sully Sodium /0000 s every day Mary, - [employer] 12/05 Spiriva Hx Capsules 18mcg 30cap 1 Unknown Handihaler /0000 s inhalation - po qam 05/15 Multi-Day / Hx Tablets 30tab 1 po qd Unknown Vitamins /0000 s - 03/06 Albuterol Hx Nebulizer (2.5mg/3M 1 vial via Unknown Sulfate /0000 L) 0.083% nebulizer 4 - times daily 01/03 as needed /2018 Medications Administered in Office Medication Date Status [...] Code Status Date Vaccine Reaction Lot # [id number] Given 08/25/2018 Tdap - [id number] Tetanus/Diptheria/Acellular Pertussis 77170 Given 05/12/2018 Influenza Virus Vaccine, [id number] Quadrivalent, Split, Preservative Free 09348 Given 05/16/2017 Influenza Virus Vaccine, No immediate [id number] Quadrivalent, Split, reaction..jh Preservative Free 70364 Given 03/04/2017 Pneumococcal Conjugate [id number] Vaccine 13 Valent For Intramuscular Use [id number] Given 04/05/2016 Fluzone Vaccine 64314 Given 06/05/2015 Pneumonia Vaccine 89997 Given 01/03/2006 Tdap - Tetanus/Diptheria/Acellular Pertussis Vital Signs Date Vital Result Comment 10/07/2018 1:16pm Height 60.5 inches 5'0.50" Weight [...] Result H/L Range Note Lipid Profile 02/03/2018 [facility] Triglycerides 192 mg/dL 1 (Trig/Chol/HDL) [place], [place] [address] [phone] Cholesterol 191 mg/dL 2 HDL Cholesterol 49.1 mg/dL 3 LDL Cholesterol 104 mg/dL 4 Laboratory test 02/03/2018 [facility] TSH (Thyroid 0.98 mcIU/mL N 0.34-5.60 finding Stim Horm) [place] [address] [phone] Free T4 (Free Thyroxine) 0.80 ng/dL N 0.61-1.12 Basic Metabolic Panel 02/03/2018 [facility] Sodium 138 mmol/L N 135-145 [place] [address] [phone] Potassium 4.2 mmol/L N 3.5-5.0 Chloride 99 mmol/L Low 101-111 Co2 Carbon Dioxide 32 mmol/L N 22-32 Anion Gap 7 mmol/L N 2-11 Glucose 88 mg/dL N 70-100 Blood Urea Nitrogen 10 mg/dL N 6-24 Creatinine 0.61 mg/dL N 0.51-0.95 BUN/Creatinine Ratio 16.4 N 8-20 Calcium 10.4 mg/dL High 8.6-10.3 Egfr Non- 94.4 >60 Egfr 114.2 >60 5 Inr/Protime 12/05/2017 [facility] Inr 0.87 N 0.77-1.[address] [place], [place] [address] [phone] Laboratory test 12/05/2017 [facility] Partial 32.6 seconds N 26.0-36.[address] [place] [address] PTT [phone] CBC Auto Diff 12/05/2017 [facility] White Blood 7.1 10^3/uL N 3.5-10.8 [place] [address] [phone] Red Blood Count 4.40 10^6/uL N 4.0-5.4 [...] Cells % 0.1 Comp Metabolic Panel 12/05/2017 [facility] Sodium 139 mmol/L N 139-[address] [place] [address] [phone] Potassium 4.1 mmol/L N 3.5-5.0 Chloride 97 [...] Egfr 91.4 >60 8 Laboratory test 12/05/2017 [facility] TSH (Thyroid 0.14 Low 0.34-5.[address] Stim Horm) mcIU/[place] [address] [phone] Free T4 (Free Thyroxine) 1.14 ng/dL High 0.61-1.12 10 Type & Screen 12/05/2017 [facility] Patient Blood Type O Positive [address] [place] [address] [phone] Antibody Screen NEGATIVE Urinalysis Profile 12/05/2017 [facility] Urine Color Straw [address] [place] [address] [phone] Urine Appearance Clear Urine Specific [place] 1.005 Low 1.010-1.030 Urine pH 6.0 N [...] Present Abnormal Absent Urine Culture And 12/05/2017 [facility] Urine Culture SEE RESULT [address] [place] [address] [phone] Basic Metabolic 09/09/2017 [facility] Sodium 138 mmol/L N 133- [address] [place] [address] [phone] Potassium 4.6 mmol/L N 3.5-5.0 Chloride 99 mmol/L Low 101-111 Co2 Carbon Dioxide 34 mmol/L High 22-32 Anion Gap 5 mmol/L N 2-11 Glucose 86 mg/dL N 70-100 Blood Urea Nitrogen 14 mg/dL N 6-24 Creatinine 0.84 mg/dL N 0.51-0.95 BUN/Creatinine Ratio 16.7 N 8-20 Calcium 10.1 mg/dL N 8.6-10.3 Egfr Non- 65.4 >60 Egfr 84.1 >60 12 Laboratory test 09/09/2017 [facility] TSH (Thyroid 0.35 mcIU/mL N 0.34-5.[address] Stim [place]orm) [place] [address] [phone] Free T4 (Free Thyroxine) 0.93 ng/dL N 0.61-1.12 Lipid Profile 09/09/2017 [facility] Triglycerides 203 mg/dL 13 (Trig/Chol/HDL) [address] [place] [address] [phone] Cholesterol 169 mg/dL 14 HDL Cholesterol 47.7 mg/dL 15 LDL Cholesterol 81 mg/dL 16 Xray 07/04/2017 [facility] MRI Shoulder Right <pending> 16 [facility] [place] [address] [phone] Laboratory test 06/24/2015 [facility] Urine Culture And SEE RESULT 17 finding 101 [facility] [place] [address] [phone] CBC No Diff 06/15/2015 [facility] White Blood Count 6.8 10^3/uL N 4.8- [address] [place] [address] 10.8 [place] [address] [phone] Red Blood Count 4.33 10^6/uL N 4.0-5.4 Hemoglobin 12.6 g/dL N 12.0-16.0 Hematocrit 40 % N 35-47 Mean Corpuscular Volume 92 fL N 80-97 Mean Corpuscular Hemoglobin 29 pg N 27-31 Mean Corpuscular HGB Conc 32 g/dL N 31-36 Red Cell Distribution Width 14 % N 10.5-15 Platelet Count 221 10^3/uL N 150-450 Mean Platelet Volume 10 um3 N 7.4-10.4 Type & Screen 06/15/2015 [facility] Patient Blood Type O Positive N [address] [place] [address] [phone] Antibody Screen NEGATIVE N Urinalysis Profile 06/15/2015 [facility] Urine Color Straw N [address] [place] [address] [phone] Urine Appearance Clear N Urine Specific [place] 1.006 Low 1.010-1.030 Urine pH 5.0 N [...] Absent Urine Hyaline Casts Present Abnormal Absent Laboratory test 06/15/2015 [facility] Urine Culture And SEE RESULT [address] Sensitivities BELOW [place], [place] [address] [phone] Inr/Protime 06/15/2015 [facility] Inr 0.91 N 0.89- [address] 1.11 [place], [place] [address] [phone] Basic Metabolic 06/15/2015 [facility] Sodium 136 mmol/L N 133- [address] [place] [address] [phone] Potassium 4.5 mmol/L N 3.5-5.0 Chloride 98 mmol/L Low 101-111 Co2 Carbon Dioxide 31 mmol/L N 22-32 Anion Gap 7 mmol/L N 2-11 Glucose 86 mg/dL N 70-100 Blood Urea Nitrogen 23 mg/dL N 6-24 Creatinine 1.13 mg/dL High 0.51-0.95 BUN/Creatinine Ratio 20.4 High 8-20 Calcium 9.9 mg/dL N 8.6-10.3 Egfr Non- 46.7 N >60 Egfr 60.0 N >60 21 Laboratory test 01/14/2015 [facility] Urine Culture And SEE RESULT 22, [address] [place] [address] [phone] Type & Screen 01/14/2015 [facility] Patient Blood O Positive N [address] [place] [address] [phone] Antibody Screen NEGATIVE N Inr/Protime 01/14/2015 [facility] Inr 0.92 N 0.78-1.[address] [place] [address] [phone] Basic Metabolic 01/14/2015 [facility] Sodium 135 mmol/L N 133- [address] [place] [address] [phone] Potassium 4.1 mmol/L N 3.5-5.0 Chloride 96 mmol/L Low 101-111 Co2 Carbon Dioxide 34 mmol/L High 22-32 Anion Gap 5 mmol/L N 2-11 Glucose 87 mg/dL N 70-100 Blood Urea Nitrogen 21 mg/dL N 6-24 Creatinine 0.94 mg/dL N 0.51-0.95 BUN/Creatinine Ratio 22.3 High 8-20 Calcium 9.9 mg/dL N 8.6-10.3 Egfr Non- 57.7 N >60 Egfr 74.3 N >60 24 Urinalysis Profile 01/14/2015 [facility] Urine Color Colorless N [address] [place] [address] [phone] Urine Appearance Clear N Urine Specific [place] 1.004 Low 1.010-1.030 Urine pH 6.0 N [...] Urine Squamous Epithelial Cell Present Abnormal Absent CBC No Diff 01/14/2015 [facility] White Blood 7.6 10^3/uL N 4.8-10.[address] [place] [address] [phone] Red Blood Count 4.27 10^6/uL N 4.0-5.4 Hemoglobin 12.4 g/dL N 12.0-16.0 Hematocrit 39 % N 35-47 Mean Corpuscular Volume 90 fL N 80-97 Mean Corpuscular Hemoglobin 29 pg N 27-31 Mean Corpuscular HGB Conc 32 g/dL N 31-36 Red Cell Distribution Width 14 % N 10.5-15 Platelet Count 264 10^3/uL N 150-450 Mean Platelet Volume 9 um3 N 7.4-10.4 Inr/Protime 09/06/2014 [facility] Inr 0.92 N 0.78-1.07 25, [address] [place] [address] [phone] CBC No Diff 09/06/2014 [facility] White Blood 6.8 N 4.8-10.[address] Count 10^3/[place] [address] [phone] Red Blood Count 3.99 10^6/uL Low 4.0-5.4 Hemoglobin 12.6 g/dL N 12.0-16.0 Hematocrit 38 % N 35-47 Mean Corpuscular Volume 95 fL N 80-97 Mean Corpuscular Hemoglobin 32 pg High 27-31 Mean Corpuscular HGB Conc 33 g/dL N 31-36 Red Cell Distribution Width 13 % N 10.5-15 Platelet Count 237 10^3/uL N 150-450 Mean Platelet Volume 10 um3 N 7.4-10.4 Urinalysis Profile 09/06/2014 [facility] Urine Color Straw N [address] [place] [address] [phone] Urine Appearance Clear N Urine Specific [place] 1.006 Low 1.010-1.030 Urine pH 6.0 N 5-9 Urine Urobilinogen Negative N Negative Urine Ketones Negative N Negative Urine Protein Negative N Negative Urine Leukocytes Negative N Negative Urine Blood Negative N Negative Urine Nitrite Negative N Negative Urine Bilirubin Negative N Negative Urine Glucose Negative N Negative Basic Metabolic 09/06/2014 [facility] Sodium 132 mmol/L Low 133-145 Panel [address] [place] [address] [phone] Potassium 4.7 mmol/L N 3.5-5.0 Chloride 96 mmol/L Low 101-111 Co2 Carbon Dioxide 31 mmol/L N 22-32 Anion Gap 5 mmol/L N 2-11 Glucose 95 mg/dL N 70-100 Blood Urea Nitrogen 28 mg/dL High 6-24 Creatinine 1.05 mg/dL High 0.51-0.95 BUN/Creatinine Ratio 26.7 High 8-20 Calcium 10.4 mg/dL High 8.6-10.3 Egfr Non- 51.0 N >60 Egfr 65.5 N >60 27 Laboratory 09/06/2014 [facility] TSH (Thyroid 1.69 IU/mL N 0.34-5.60 28 test finding [address] [place] [address] Horm) [phone] Type & Screen 09/06/2014 [facility] Patient Blood O Positive N [address] [facility] [place] [address] [phone] Antibody Screen NEGATIVE N 1 Desirable: <150 [...] 10 12/18 11 SEE RESULT BELOW Name: JELLY DOVER : [address]: Fallon Jones MD Acct: [id number] Unit: [id number] AGE: 82 Location: PAT Re12/05/17 SEX: F Status: REG REF SPEC: [id number] GERARDO: 12/05/17-[address]: Fallon Jones MD REQ: [id number] RECD: 12/05/17 STATUS: COMP _ SOURCE: URINE SPDESC: ORDERED: Urine Culture Procedure Result Reported Site Urine Culture Final 12/06/17- 1229 ML No growth of clinically significant organisms * - Main Lab . END OF REPORT DEPARTMENT OF PATHOLOGY, [address] [place] [address] Ruperto Lozano M.D. Director [facility] # [id number] 12 Because ethnic data is not always [...] 5 Kidney failure <15 (or dialysis) 13 Desirable: <150 Borderline High: 150-199 High: 200-499 Very High: >500 14 Desirable: <200 Borderline High: 200-239 High: >239 15 Low: <40 Desirable: 40-60 High: >60 16 Desirable: <100 Near Optimal: 100-129 Borderline High: 130-159 High: 160-189 Very High: >189 17 SEE RESULT BELOW Name: JELLY DOVER : [address]: Lizzie Salas MD Acct: [id number] Unit: [id number] AGE: 79 Location: LAB Re06/24/15 SEX: F Status: REG REF SPEC: [id number] GERARDO: 06/24/15-[address]: Marita Virk NP REQ: [id number] RECD: 06/24/15 STATUS: COMP _ SOURCE: URINE SPDESC: ORDERED: Urine Culture Urine Source: Random Procedure Result Verified Site Urine Culture Final 06/26/15- 933 ML Organism 1 NORMAL STEPH [place] Count 10-25,000 (Moderate) CFU/ML * ML - MAIN LAB ([facility]) . END OF REPORT * ML=Testing performed at Main Lab DEPARTMENT OF PATHOLOGY, [address] [place] [address] Ruperto Lozano M.D. Director [facility] # [id number] 06/21/15 SEE RESULT BELOW Name: JOSEBRENNAJamesJELLY : [address]: Hiram Wise MD Acct: [id number] Unit: [id number] AGE: 79 Location: [facility] Re06/15/15 SEX: F Status: REG REF SPEC: [id number] GERARDO: 06/15/15-[address]: Hiram Wise MD REQ: [id number] RECD: 06/15/15-1242 STATUS: DEE SHETTY DR: Fahad Ramirez MD _ SOURCE: URINE SPDESC: ORDERED: Urine Culture Procedure Result Verified Site Urine Culture Final 06/17/15- 1009 ML Organism 1 STREP GROUP B [place] Count 10-25,000 (Moderate) CFU/ML Organism 2 NORMAL STEPH [place] Count 1-10,000 (Few) CFU/ML Susceptibility testing of penicillins and other B-lactams approved by FDA for treatment of Streptococcus pyogenes (Group A Strep) and Streptococcus agalactiae (Group B Strep) is not necessary for clinical purposes and need not be done routinely, since as with vancomycin, resistant strains have not been recognized. (CLSI J534-U86;p.66) Positive isolates will be saved for one week. Please call the Microbiology Laboratory if further susceptibility testing is needed. * ML - MAIN LAB ([facility]) . END OF REPORT * ML=Testing performed at Main Lab DEPARTMENT OF PATHOLOGY, [address] [place] [address] Ruperto Lozano M.D. Director [facility] # [id number] 20 Effective immediately, due to a laboratory [...] 15-29 5 Kidney failure <15 (or dialysis) 01/25 SEE RESULT BELOW Name: PITOJELLY : [address]: Hiram Wise MD Acct: [id number] Unit: [id number] AGE: 79 Location: [facility] Re01/14/15 SEX: F Status: REG REF SPEC: [id number] GERARDO: 01/14/15-[address]: Hiram Wise MD REQ: [id number] RECD: 01/14/15-2558 STATUS: DEE SHETTY DR: Fahad Ramirez MD _ SOURCE: URINE [facility]: ORDERED: Urine Culture Procedure Result Verified Site Urine Culture Final 01/16/15- 0942 ML Organism 1 NORMAL STEPH [place] Count 1-10,000 (Few) CFU/ML * ML - MAIN LAB ([facility]) . END OF REPORT * ML=Testing performed at Main Lab DEPARTMENT OF PATHOLOGY, [address] [place] [address] Ruperto Lozano M.D. Director [facility] # [id number] 24 Because ethnic data is not always readily [...] 15-29 5 Kidney failure <15 (or dialysis) 25 AA SURGERY 09/14/14 26 Please note: [...] 09/14/14 Procedures Date Code Description Status 12/18/2017 12463 Arthroplasty,Total Shoulder Replacement (TSR) Completed 12/18/2017 45044 Arthroplasty,Total Shoulder Replacement (TSR) Completed 11/21/2017 49327 EKG Tracing & Interpretation Completed 10/11/2017 19624 Inject/Drain Joint/Bursa Major W/O US Completed 09/04/2017 95639 Remove Impacted Cerumen Completed 07/11/2017 52590 Inject/Drain Joint/Bursa Major W/O US Completed 05/16/2017 07819 Inject/Drain Joint/Bursa Major W/O US Completed 03/19/2017 [id number] Mammogram Completed 01/18/2017 84978 Trigger Finger Release Incision / Tendon Sheath Completed Incision 01/18/2017 24198 Trigger Finger Release Incision / Tendon Sheath Completed Incision 07/11/2016 38326 Inject Tendon Sheath Or Ligament Aponeurosis Eg Plantar Completed Fascia 03/02/2016 00241 Trigger Finger Release Incision / Tendon Sheath Completed Incision 03/02/2016 09566 Trigger Finger Release Incision / Tendon Sheath Completed Incision 02/07/2016 78596 Trigger Finger Release Incision / Tendon Sheath Completed Incision 02/07/2016 65045 Trigger Finger Release Incision / Tendon Sheath Completed Incision 01/18/2016 [id number] Mammogram Completed 08/10/2015 86107 Inject Tendon Sheath Or Ligament Aponeurosis Eg Plantar Completed Fascia 06/28/2015 04803 TKR Total Knee Replacement Completed 06/28/2015 30062 TKR Total Knee Replacement Completed 06/28/2015 67184 EKG, Interpretation Only Completed 01/14/2015 71294 EKG, Interpretation Only Completed 12/29/2014 88040 Inject Tendon Sheath Or Ligament Aponeurosis Eg Plantar Completed Fascia 12/15/2014 91798 ECHO Transthorasic Realtime 2D W Doppler & Color Flow Completed Hosp 09/14/2014 05081 TKR Total Knee Replacement Completed 09/14/2014 41380 TKR Total Knee Replacement Completed 07/21/2014 45885 Rad Exam; Both Knees, Standing Ap Completed 04/06/2014 40283 Trigger Finger Release Incision / Tendon Sheath Completed Incision 11/11/2013 23508 Inject Tendon Sheath Or Ligament Aponeurosis Eg Plantar Completed Fascia 05/13/2013 13143 Inject Tendon Sheath Or Ligament Aponeurosis Eg Plantar Completed Fascia 09/03/2012 83394 Polysomnography Sleep Staging 4+ Parameters W/Cpap Completed 08/26/2012 78975 Polysomnography Sleep Staging 4+ Parameters Completed 07/13/2012 78025 ECHO Transthorasic Realtime 2D W Doppler & Color Flow Completed Hosp 10/04/2010 24168421 Colonoscopy Completed Encounters Type Date Location Provider Dx Diagnosis Office Visit 06/17/2018 Orthopedic Fallon Jones MD G56.21 Lesion of ulnar 10:15a [facility] nerve, right upper limb Office Visit 05/15/2018 Orthopedic Fallon Jones MD Z96.611 Presence of right 9:45a [facility] 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 I26.99 Other pulmonary 2:30p Medicine - Tbalyx Urban M.D.,FACP embolism without Rd acute cor pulmonale J44.9 Chronic obstructive pulmonary disease, unspecified E03.9 Hypothyroidism, unspecified Office Visit 01/03/2018 9:50a [facility] Internal Antonio Black I26.99 Other pulmonary Jagdish Urban M.D.,FACP embolism without [address] acute cor pulmonale E03.9 Hypothyroidism, unspecified J44.9 Chronic obstructive pulmonary disease, unspecified Office Visit 12/20/2017 1:33p [facility] Son Andrews, I51.9 Heart disease, Assoc,pc unspecified Hospitalists I27.20 Pulmonary hypertension, unspecified J44.9 Chronic obstructive pulmonary disease, unspecified Z96.611 Presence of right artificial shoulder joint Office Visit 12/19/2017 1:32p [facility] Son Andrews, I51.9 Heart disease, Assoc,pc unspecified Hospitalists I27.20 Pulmonary hypertension, unspecified J44.9 Chronic obstructive pulmonary disease, unspecified Z96.611 Presence of right artificial shoulder joint Office Visit 12/18/2017 1:29p [facility] Son Andrews, I51.9 Heart disease, Assoc,pc unspecified Hospitalists I27.20 Pulmonary hypertension, unspecified J44.9 Chronic obstructive pulmonary disease, unspecified Z96.611 Presence of right artificial shoulder joint Office Visit 11/21/2017 [facility] Internal Sully Z01.818 Encounter for other 11:00a Jagdish Hernandez NP preprocedural [address] examination M75.121 Complete rotatr-cuff tear/ruptr of r shoulder, not trauma M19.011 Primary osteoarthritis, right shoulder I27.20 Pulmonary hypertension, unspecified J44.9 Chronic obstructive pulmonary disease, unspecified Office Visit 10/28/2017 3:00p [facility] Internal Sully Z00.00 Encntr for Medicine - [address] T[place]VOR Hernandez general adult Rd medical exam w/o abnormal findings R14.0 Abdominal distension (gaseous) Office Visit 10/11/2017 1:15p Orthopedic Fallon Jones, M75.121 Complete Services Of rotatr-cuff C.M.A. tear/ruptr of r shoulder, not trauma M19.011 Primary osteoarthritis, right shoulder M25.511 Pain in right shoulder Office Visit 08/23/2017 10:30a Orthopedic Fallon Jones M75.121 Complete Services Of rotatrPenniecuff C.M.ATerri tear/ruptr of r shoulder, not trauma M19.011 Primary osteoarthritis, right shoulder S46.101A Unsp injury of musc/fasc/tend long hd bicep, right arm, init Office Visit 07/11/2017 8:30a Orthopedic James Lara75.121 Complete Services Of rotatr-cuff C.M.ATerri tear/ruptr of r shoulder, not trauma M19.011 Primary osteoarthritis, right shoulder S46.101A Unsp injury of musc/fasc/tend long hd bicep, right arm, init Office Visit 07/03/2017 11:15a Orthopedic Marj Pappas M25.511 Pain in right Services Of RPA-C shoulder C.M.A. Office Visit 05/16/2017 2:00p Orthopedic Yudy M75.51 Bursitis of Services Of Edgardo Garcia right shoulder C.M.A. Office Visit 03/04/2017 10:10a [facility] Internal Antonio Black D48.61 Neoplasm of Medicine - [place] Edgardo Urban,FACP uncertain Rd behavior of right breast G47.33 Obstructive sleep apnea (adult) (pediatric) E78.2 Mixed hyperlipidemia E03.9 Hypothyroidism, unspecified Z23 Encounter for immunization Office Visit 12/26/2016 Jacquelyn Jimenes M65.331 Trigger finger, 9:45a Services Of Edgardo Garcia right middle C.M.A. finger Office Visit 09/05/2016 Pulmonology And Rea G47.33 Obstructive sleep 1:45p Sleep Services Of HAYLEE Bertrand, RN, apnea (adult) [facility] TOBACCO PRIZER-BC (pediatric) R06.02 Shortness of breath R09.02 Hypoxemia [...] Yudy Garcia, M65.311 Trigger thumb, Services Of Edgardo right thumb C.M.A. 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 knee Z09 Encntr for f/u exam aft trtmt for cond oth than malig neoplm Z96.653 Presence of artificial knee joint, bilateral Office Visit 06/30/2015 4:17p [facility] Jazmine Wen, G47.33 Obstructive sleep Assoc,pc N.P. apnea (adult) Hospitalists (pediatric) J43.9 Emphysema, unspecified R09.02 Hypoxemia I10 Essential (primary) hypertension Office Visit 06/29/2015 4:16p [facility] Jazmine Wen G47.33 Obstructive sleep Assoc,pc N.P. apnea (adult) Hospitalists (pediatric) J43.9 Emphysema, unspecified R09.02 Hypoxemia I10 Essential (primary) hypertension Office Visit 06/28/2015 [facility] Napoleon G47.33 Obstructive sleep 4:16p Assoc,gopi Jones, N.P. 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 knee M25.561 Pain in right knee Office Visit 05/04/2015 Orthopedic Sylvia M17.11 Unilateral primary 10:45a Services Of YESENIA Villar-Margot osteoarthritis, C.M.A. right knee Office Visit 03/07/2015 Pulmonology And Rea 327.23 Obstructive Sleep 10:00a Sleep Services Of HAYLEE Bertrand, Apnea Adult & Mine Foreman RN, TOBACCO PRIZER-BC Pediatric Office Visit 12/17/2014 [facility] Radha 584.9 Acute Kidney 10:06p Assoc,gopi Harden M.D. 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 Failure, Hospitalists Unspecified 003.1 Salmonella Septicemia 009.1 Colitis Enteritis & Gastroenteritis Presumed Infectious Orig 276.1 Hyposmolality & Or Hyponatremia [facility] 584[facility]9 Acute Kidney 10:04p gopi Perdomo M.D. Failure, Hospitalists Unspecified 003.1 Salmonella Septicemia 276.1 Hyposmolality & Or Hyponatremia 009.1 Colitis Enteritis & Gastroenteritis Presumed Infectious Orig [facility], 584.9 Acute Kidney 10:03p gopi Perdomo M.D. Failure, Hospitalists Unspecified 276.51 Dehydration 276.1 Hyposmolality & Or Hyponatremia 558.9 Gastroenteritis & Colitis Noninfectious Other Office Visit 12/13/2014 [facility], 276.51 Dehydration gopi Perdomo M.D. Hospitalists 276.1 Hyposmolality & Or Hyponatremia 558.9 Gastroenteritis & Colitis Noninfectious Other 584.9 Acute Kidney Failure, Unspecified Office Visit 12/08/2014 10:00a Orthopedic Hiram Wise, 715.96 Osteoarthrosis Services Of Edgardo Unspec Genlzd Or C.M.A. Localized Lower Leg 715.36 Osteoarthrosis Localzd Not Spec Prime Or 2Ndy Lower Leg Office Visit 11/17/2014 1:15p Jacquelyn Wise, 715.16 Osteoarthrosis Services Of Edgardo Localized Prim Lower C.M.A. Leg 715.36 Osteoarthrosis Localzd Not Spec Prime Or 2Ndy Lower Leg Office Visit 09/18/2014 2:03p [facility] Laine Harper V43.65 Knee Replacement Assoc, Darci, N.P. By Other Means Hospitalists 401.9 Hypertension Unspec 327.23 Obstructive Sleep Apnea Adult & Pediatric 244.9 Hypothyroidism Other Unspec Office Visit 09/17/2014 2:03p [facility] Laine KrishnaTerri V43.65 Knee Replacement Assoc, Darci, N.P. By Other Means Hospitalists 401.9 Hypertension Unspec 327.23 Obstructive Sleep Apnea Adult & Pediatric 244.9 Hypothyroidism Other Unspec Office Visit 09/16/2014 2:03p Laine Bejarano, N.P. V43.65 Knee Replacement By Other Means 401.9 Hypertension Unspec 327.23 Obstructive Sleep Apnea Adult & Pediatric 244.9 Hypothyroidism Other Unspec Office Visit 09/15/2014 2:03p [facility] Laine KrishnaTerri V43.65 Knee Replacement Assoc, Darci, N.P. By Other Means Hospitalists 401.9 Hypertension Unspec 327.23 Obstructive Sleep Apnea Adult & Pediatric 244.9 Hypothyroidism Other Unspec Office Visit 07/21/2014 Orthopedic Hiram Wise, 715.96 Osteoarthrosis 1:30p Services Of Edgardo Greerleverardo Or C.M.A. Localized Lower Leg Office Visit 05/19/2014 Orthopedic Antonino Vega, 715.16 Osteoarthrosis 10:00a Services Of Edgardo Localized Prim C.M.A. Lower Leg Office Visit 03/24/2014 Orthopedic Yudy 727.03 Trigger Finger 3:00p Services Of Juwan Garcia M.D. Acquired AT [place] Office Visit 05/13/2013 Orthopedic Yudy 727.03 Trigger Finger 2:45p Services Of Juwan Garcia M.D. Acquired AT [place] Office Visit 09/02/2012 Mario Ivy 327.23 Obstructive Sleep 1:26p Disorder Pedro Martin M.D. Apnea Adult & Pediatric Office Visit 08/08/2012 Mario Ivy 786.09 Dyspnea & 9:04a Disorder Pedro Martin M.D. Respiratory Abnormalities Other 780.79 Malaise And Fatigue Other Office Visit 07/15/2012 11:30a [facility] Warren Marie, 799.02 Hypoxemia Assoc, Hospitalists Edgardo 278.03 Obesity Hypoventilation Syndrome 787.91 Diarrhea 401.1 Hypertension Benign Office Visit 07/14/2012 2:12p [place] Wali Naik, 786.09 Dyspnea & Cardiology Of M.D., FACC, Respiratory [facility] FSCAI Abnormalities Other 401.9 Hypertension Unspec Office Visit 07/14/2012 11:30a [facility] Warren Gruporadha, 799.02 Hypoxemia Assoc, Hospitalists Edgardo 278.03 Obesity Hypoventilation Syndrome 787.91 Diarrhea 401.1 Hypertension Benign Office Visit 07/13/2012 11:29a [facility] Warren Gruporadha, 799.02 Hypoxemia Assoc, Hospitalists Edgardo 278.03 Obesity Hypoventilation Syndrome 787.91 Diarrhea 401.1 Hypertension Benign Office Visit 07/12/2012 11:29a [facility] Tr Burns, 799.02 Hypoxemia Assoc, Edgardo Hospitalists [...] Lumbar W/O Myelopathy Plan of Treatment Future Appointment(s):10/13/2018 11:00 am - Eddie Lieberman MD at [facility]02/23/2019 11:00 am - Tommie Valente M.D. at [facility] Internal Medicine [facility]10/07/2018 - Fallon Jones MDG56.21 Lesion of ulnar nerve, right upper limbFollow up:Follow up: with rené or brenna for foot
--- OUTSIDE RECORDS SUMMARY | 2018-11-05 14:13 | XMS REPORT | Continuity of Care Document ---
:1935 External Reference #:[id number] Author Name Charisma Brandt Care Team Providers Name Role Phone Antonio Urban MD Primary Care Physician Unavailable Payers Date Identification Numbers Payment Provider Subscriber Effective: 2002 Policy Number: [id number] Medicare Jelly Dover PayID: [id number] [address] [place] [address] Effective: 2002 Policy Number: [id number] For Life Davis Dover PayID: [id number] [address] [place] [address] Advance Directives Description No Information Available Problems Date Description Provider Status Onset: 12/08/2014 Osteoarthritis of knee Hiram Wise M.D. Active Onset: 08/26/2012 Obstructive sleep apnea of adult Rea Bertrand DNP, RN, Active REGIONAL PRODUCTION MANAGER- Note: 08/26/12 on CPAP with O2 2L [...] attack at age 61 Father due to [place] () Mother at age 85 Mother Wells's disease; pernecious anemia Siblings None Siblings 1 [...] s tablet by Sofia Urban, mouth every M.DTerri,[facility] day in the morning Nystatin 11/27 Active Cream [id number] 30uni topically t/GM ts twice a day Sofia Urban, as needed M.Sofia,AUR[facility]AP Simvastatin 11/18 Active Tablets 40mg 90tab 1 by mouth Sully /2018 s every day TREVOR Hernandez Amoxicillin 10/11 Active Capsules 500mg 16cap 4 tablets 1 s hour before Sully, dental DAIRY SCIENTIST work, invasive gi or gu procedures Spironolactone 03/06 Active Tablets 50mg 90tab 1 by mouth s daily Sofia Urban M.D.,AURORAP Vitamin B12 03/06 Active Tablets 1000mg 1 by mouth every day Yuliana Active Tablets 180mg 30tab 1 po qd prn s Neurontin Active Capsules 300mg 360ca four ps tablets a Sofia Urban, bedtime M.Sofia,FACP daily Culturelle Active Capsules 30cap once a day s 15 billion cells per capsule Furosemide Active Tablets 40mg 90tab 1 by mouth s every day Sofia Urban M.D.,FACP Tramadol HCL 04/15 Hx Tablets 50mg 30tab four times s a day as Sofia Urban, - needed [facility] 08/25 Percocet 01/28 Hx Tablets 5-325mg 14tab [...] bs twice a day Sofia Urban, - M.D.,[facility] 04/09 Tramadol HCL 10/11 Hx Tablets 50mg [...] s tid for 10 Bordoni, - days. DAIRY SCIENTIST 08/09 Percocet 06/15 Hx Tablets 5-325mg 90tab 1-2 by M17.11 Lizzie s mouth every Josue, - 4 to 6 M.D. 08/09 hours needed pain Coumadin 06/15 Hx Tablets 2mg 60tab take 1-5 M17.11 Dirk s tablets as Frandy, - directed M.D. 08/09 Misoprostol 03/06 Hx Tablets 100mcg 90tab take one Sully s tablet by Mary, - mouth once DAIRY SCIENTIST 01/03 daily. Amoxicillin 01/03 Hx Tablets 500mg 8tabs take 4 tabs Dirk 1 hour Frandy, - before M.D. 08/09 dental procedure. Naproxen 10/13 Hx Tablets 500mg 90tab 1 tablet Sully s q12 hours Mary, - as needed DAIRY SCIENTIST 01/03 pain reduce to one tablet daily [...] Sully /0000 s every day Mary, - DAIRY SCIENTIST 08/25 Carbidopa/Levodo Hx Tablets 25-100mg 270ta 1 po qd Unknown pa /0000 bs - 01/02 Bumetanide Hx Tablets 1mg 90tab 1 po qd Unknown /0000 s - 10/27 Spironolactone Hx Tablets 50mg 90tab 1 po qd Unknown /0000 s - 11/11 Levothyroxine Hx Tablets 100mcg 90tab 1 by mouth Sully Sodium /0000 s every day Mary, - DAIRY SCIENTIST 12/05 Spiriva 00 Hx Capsules 18mcg 30cap [...] Code Status Date Vaccine Reaction Lot # 53248 Given 08/25/2018 Tdap - [id number] Tetanus/Diptheria/Acellular Pertussis 00832 Given 05/12/2018 Influenza Virus Vaccine, [id number] Quadrivalent, Split, Preservative Free 88775 Given 05/16/2017 Influenza Virus Vaccine, No immediate [id number] Quadrivalent, Split, reaction..jh Preservative Free 86469 Given 03/04/2017 Pneumococcal Conjugate [id number] Vaccine 13 Valent For Intramuscular Use Q2038 Given 04/05/2016 Fluzone Vaccine 12576 Given 06/05/2015 Pneumonia Vaccine 65864 Given 01/03/2006 Tdap - Tetanus/Diptheria/Acellular Pertussis Vital [...] Result H/L Range Note Lipid Profile 02/03/2018 [facility] Triglycerides 192 mg/dL 1 (Trig/Chol/HDL) [place] [address] [phone] Cholesterol 191 mg/dL 2 HDL Cholesterol 49.1 mg/dL 3 LDL Cholesterol 104 mg/dL 4 Laboratory test 02/03/2018 [facility] TSH (Thyroid 0.98 mcIU/mL N 0.34-5.60 finding [facility] Stim Horm) [place] [address] [phone] Free T4 (Free Thyroxine) 0.80 ng/dL N 0.61-1.12 Basic Metabolic Panel 02/03/2018 [facility] Sodium 138 mmol/L N 135-145 [place] [address] [phone] Potassium 4.2 mmol/L N 3.5-5.0 Chloride 99 mmol/L Low 101-111 Co2 Carbon Dioxide 32 mmol/L N 22-32 Anion Gap 7 mmol/L N 2-11 Glucose 88 mg/dL N 70-100 Blood Urea Nitrogen 10 mg/dL N 6-24 Creatinine 0.61 mg/dL N 0.51-0.95 BUN/Creatinine Ratio 16.4 N 8-20 Calcium 10.4 mg/dL High 8.6-10.3 Egfr Non- 94.4 >60 Egfr 114.2 >60 5 Inr/Protime 12/05/2017 [facility] Inr 0.87 N 0.77-1.02 6 [place] [address] [phone] Laboratory test 12/05/2017 [facility] Partial 32.6 seconds N 26.0-36.[address] [place] [address] PTT [phone] CBC Auto Diff 12/05/2017 [facility] White Blood 7.1 10^3/uL N 3.5-10.[address] [place] [address] [phone] Red Blood Count 4.40 10^6/uL N 4.0-5.4 [...] Cells % 0.1 Comp Metabolic Panel 12/05/2017 [facility] Sodium 139 mmol/L N 139-[address] [place] [address] [phone] Potassium 4.1 mmol/L N 3.5-5.0 Chloride 97 [...] Egfr 91.4 >60 8 Laboratory test 12/05/2017 [facility] TSH (Thyroid 0.14 Low 0.34-5.[address] Stim Horm) mcIU/mL [place], [place] [id number] [phone] Free T4 (Free Thyroxine) 1.14 ng/dL High 0.61-1.12 10 Type & Screen 12/05/2017 [facility] Patient Blood Type O Positive [address] [place] [address] [phone] Antibody Screen NEGATIVE Urinalysis Profile 12/05/2017 [facility] Urine Color Straw [address] [place] [address] [phone] Urine Appearance Clear Urine Specific [place] 1.005 Low 1.010-1.030 Urine pH 6.0 N [...] Present Abnormal Absent Urine Culture And 12/05/2017 [facility] Urine Culture SEE RESULT [address] [place] [address] [phone] Lipid Profile 09/09/2017 [facility] Triglycerides 203 mg/dL 12 (Trig/Chol/HDL) [address] [place] [address] [phone] Cholesterol 169 mg/dL 13 HDL Cholesterol 47.7 mg/dL 14 LDL Cholesterol 81 mg/dL 15 Laboratory test 09/09/2017 [facility] TSH (Thyroid 0.35 mcIU/mL N 0.34-5.[address] Stim Horm) [place] [address] [phone] Free T4 (Free Thyroxine) 0.93 ng/dL N 0.61-1.12 Basic Metabolic Panel 09/09/2017 [facility] Sodium 138 mmol/L N 133-[address] [place] [address] [phone] Potassium 4.6 mmol/L N 3.5-5.0 Chloride 99 mmol/L Low 101-111 Co2 Carbon Dioxide 34 mmol/L High 22-32 Anion Gap 5 mmol/L N 2-11 Glucose 86 mg/dL N 70-100 Blood Urea Nitrogen 14 mg/dL N 6-24 Creatinine 0.84 mg/dL N 0.51-0.95 BUN/Creatinine Ratio 16.7 N 8-20 Calcium 10.1 mg/dL N 8.6-10.3 Egfr Non- 65.4 >60 Egfr 84.1 >60 16 Xray 07/04/2017 [facility] MRI Shoulder Right <pending> 16 [employer] [place] [address] [phone] Laboratory test 06/24/2015 [facility] Urine Culture And SEE RESULT [address] Sensitivities BELOW [place], [place] [address] [phone] CBC No Diff 06/15/2015 [facility] White Blood Count 6.8 10^3/uL N 4.8- [address] 10.8 [place] [address] [phone] Red Blood Count 4.33 10^6/uL N 4.0-5.4 Hemoglobin 12.6 g/dL N 12.0-16.0 Hematocrit 40 % N 35-47 Mean Corpuscular Volume 92 fL N 80-97 Mean Corpuscular Hemoglobin 29 pg N 27-31 Mean Corpuscular HGB Conc 32 g/dL N 31-36 Red Cell Distribution Width 14 % N 10.5-15 Platelet Count 221 10^3/uL N 150-450 Mean Platelet Volume 10 um3 N 7.4-10.4 Laboratory test 06/15/2015 [facility] Urine Culture And SEE RESULT [address] [place] [address] [phone] Urinalysis 06/15/2015 [facility] Urine Color Straw N Profile [address] [place] [address] [phone] Urine Appearance Clear N Urine Specific [place] 1.006 Low 1.010-1.030 Urine pH 5.0 N [...] Hyaline Casts Present Abnormal Absent Inr/Protime 06/15/2015 [facility] Inr 0.91 N 0.89-1.[address] [place] [address] [phone] Type & Screen 06/15/2015 [facility] Patient Blood O Positive N [address] [place] [address] [phone] Antibody Screen NEGATIVE N Basic Metabolic Panel 06/15/2015 [facility] Sodium 136 mmol/L N 133-[address] [place] [address] [phone] Potassium 4.5 mmol/L N 3.5-5.0 Chloride 98 [...] N >60 21 CBC No Diff 01/14/2015 [facility] White Blood 7.6 10^3/uL N 4.8-10.[address] [place] [address] [phone] Red Blood Count 4.27 10^6/uL N 4.0-5.4 Hemoglobin 12.4 g/dL N 12.0-16.0 Hematocrit 39 % N 35-47 Mean Corpuscular Volume 90 fL N 80-97 Mean Corpuscular Hemoglobin 29 pg N 27-31 Mean Corpuscular HGB Conc 32 g/dL N 31-36 Red Cell Distribution Width 14 % N 10.5-15 Platelet Count 264 10^3/uL N 150-450 Mean Platelet Volume 9 um3 N 7.4-10.4 Urinalysis Profile 01/14/2015 [facility] Urine Color Colorless [address] [place] [address] [phone] Urine Appearance Clear N Urine Specific [place] 1.004 Low 1.010-1.030 Urine pH 6.0 N [...] Present Abnormal Absent Basic Metabolic Panel 01/14/2015 [facility] Sodium 135 mmol/L N 133-[address] [place] [address] [phone] Potassium 4.1 mmol/L N 3.5-5.0 Chloride 96 mmol/L Low 101-111 Co2 Carbon Dioxide 34 mmol/L High 22-32 Anion Gap 5 mmol/L N 2-11 Glucose 87 mg/dL N 70-100 Blood Urea Nitrogen 21 mg/dL N 6-24 Creatinine 0.94 mg/dL N 0.51-0.95 BUN/Creatinine Ratio 22.3 High 8-20 Calcium 9.9 mg/dL N 8.6-10.3 Egfr Non- 57.7 N >60 Egfr 74.3 N >60 23 Inr/Protime 01/14/2015 [facility] Inr 0.92 N 0.78-1.[address] [place] [address] [phone] Type & Screen 01/14/2015 [facility] Patient Blood O Positive N [address] [place] [address] [phone] Antibody Screen NEGATIVE N Laboratory test 01/14/2015 [facility] Urine Culture And SEE RESULT [address] [place] [address] [phone] Urinalysis 09/06/2014 [facility] Urine Color Straw N [address] [place] [address] [phone] Urine Appearance Clear N Urine Specific [place] 1.006 Low 1.010-1.030 Urine pH 6.0 N 5-9 Urine Urobilinogen Negative N Negative Urine Ketones Negative N Negative Urine Protein Negative N Negative Urine Leukocytes Negative N Negative Urine Blood Negative N Negative Urine Nitrite Negative N Negative Urine Bilirubin Negative N Negative Urine Glucose Negative N Negative CBC No Diff 09/06/2014 [facility] White Blood 6.8 10^3/uL N 4.8-10.[address] [place] [address] [phone] Red Blood Count 3.99 10^6/uL Low 4.0-5.4 Hemoglobin 12.6 g/dL N 12.0-16.0 Hematocrit 38 % N 35-47 Mean Corpuscular Volume 95 fL N 80-97 Mean Corpuscular Hemoglobin 32 pg High 27-31 Mean Corpuscular HGB Conc 33 g/dL N 31-36 Red Cell Distribution Width 13 % N 10.5-15 Platelet Count 237 10^3/uL N 150-450 Mean Platelet Volume 10 um3 N 7.4-10.4 Inr/Protime 09/06/2014 [facility] Inr 0.92 N 0.78-1.07 [address] [place] [address] [phone] Basic Metabolic 09/06/2014 [facility] Sodium 132 mmol/L Low 133-145 Panel [address] [place] [address] [phone] Potassium 4.7 mmol/L N 3.5-5.0 Chloride 96 mmol/L Low 101-111 Co2 Carbon Dioxide 31 mmol/L N 22-32 Anion Gap 5 mmol/L N 2-11 Glucose 95 mg/dL N 70-100 Blood Urea Nitrogen 28 mg/dL High 6-24 Creatinine 1.05 mg/dL High 0.51-0.95 BUN/Creatinine Ratio 26.7 High 8-20 Calcium 10.4 mg/dL High 8.6-10.3 Egfr Non- 51.0 N >60 Egfr 65.5 N >60 27 Laboratory 09/06/2014 [facility] TSH (Thyroid 1.69 IU/mL N 0.34-5.60 28 test finding [address] [place] [address] Horm) [phone] Type & Screen 09/06/2014 [facility] Patient Blood O Positive N [address] [place] [address] [phone] Antibody Screen NEGATIVE N 1 Desirable: <150 [...] BELOW Name: PITOJELLY : [address]: Fallon Jones MD Acct: [id number] Unit: [id number] AGE: 82 Location: PAT Re12/05/17 SEX: F Status: REG REF SPEC: [id number] GERARDO: 12/05/17-[address]: Fallon Jones MD REQ: [id number] RECD: 12/05/17 STATUS: COMP _ SOURCE: URINE SPDESC: ORDERED: Urine Culture Procedure Result Reported Site Urine Culture Final 05/04/18- 1229 ML No growth of clinically significant organisms * ML - Main Lab . END OF REPORT DEPARTMENT OF PATHOLOGY, [address] [place] [address] Ruperto Lozano M.D. Director [facility] # [id number] 12 Desirable: <150 Borderline High: 150-199 High: [...] [address]: Lizzie Salas MD Acct: [id number] Unit: [id number] AGE: 79 Location: LAB Re06/24/15 SEX: F Status: REG REF SPEC: [id number] GERARDO: 06/24/15-[address]: Marita Virk NP REQ: [id number] RECD: 06/24/15 STATUS: COMP _ SOURCE: URINE SPDESC: ORDERED: Urine Culture Urine Source: Random Procedure Result Verified Site Urine Culture Final 06/26/15- 933 ML Organism 1 NORMAL STEPH Friendship Count 10-25,000 (Moderate) CFU/ML * ML - MAIN LAB ([facility]) . END OF REPORT * ML=Testing performed at Main Lab DEPARTMENT OF PATHOLOGY, [address] [place] [address] Ruperto Lozano M.D. Director [facility] # [id number] 18 06/21/15 19 SEE RESULT BELOW Name: JELLY DOVER : [address]: Hiram Wise MD Acct: [id number] Unit: [id number] AGE: 79 Location: [facility] Re06/15/15 SEX: F Status: REG REF SPEC: [id number] GERARDO: 06/15/15-1140 [facility] DR: Hiram Wise MD REQ: [id number] RECD: 06/15/15-1242 STATUS: DEE SHETTY DR: Fahad Ramirez MD _ SOURCE: URINE SPDESC: ORDERED: Urine Culture Procedure Result Verified Site Urine Culture Final 06/17/15- 1009 ML Organism 1 STREP GROUP B Friendship Count 10-25,000 (Moderate) CFU/ML Organism 2 NORMAL STEPH Friendship Count 1-10,000 (Few) CFU/ML Susceptibility testing of penicillins and other B-lactams approved by FDA for treatment of Streptococcus pyogenes (Group A Strep) and Streptococcus agalactiae (Group B Strep) is not necessary for clinical purposes and need not be done routinely, since as with vancomycin, resistant strains have not been recognized. (CLSI V635-X82;p.66) Positive isolates will be saved for one week. Please call the Microbiology Laboratory if further susceptibility testing is needed. * ML - MAIN LAB ([facility]) . END OF REPORT * ML=Testing performed at Main Lab DEPARTMENT OF PATHOLOGY, [address] [place] [address] Ruperto Lozano M.D. Director [facility] # [id number] 20 Effective immediately, due to a laboratory [...] [address]: Hiram Wise MD Acct: [id number] Unit: [id number] AGE: 79 Location: PAT Re01/14/15 SEX: F Status: REG REF SPEC: [id number] GERARDO: 01/14/15-1405 [facility] DR: Hiram Wise MD REQ: [id number] RECD: 01/14/15 STATUS: DEE SHETTY DR: Fahad Ramirez MD _ SOURCE: URINE SPDESC: ORDERED: Urine Culture Procedure Result Verified Site Urine Culture Final 01/16/15- 0942 ML Organism 1 NORMAL STEPH Friendship Count 1-10,000 (Few) CFU/ML * ML - MAIN LAB ([facility]) . END OF REPORT * ML=Testing performed at Main Lab DEPARTMENT OF PATHOLOGY, [address] [place] [address] Ruperto Lozano M.D. Director [facility] # [id number] 25 AA SURGERY 09/14/14 26 Please note: [...] 09/14/14 Procedures Date Code Description Status 12/18/2017 37299 Arthroplasty,Total Shoulder Replacement (TSR) Completed 12/18/2017 84251 Arthroplasty,Total Shoulder Replacement (TSR) Completed 11/21/2017 40913 EKG Tracing & Interpretation Completed 10/11/2017 52650 Inject/Drain Joint/Bursa Major W/O US Completed 09/04/2017 76479 Remove Impacted Cerumen Completed 07/11/2017 50107 Inject/Drain Joint/Bursa Major W/O US Completed 05/16/2017 55569 Inject/Drain Joint/Bursa Major W/O US Completed 03/19/2017 [id number] Mammogram Completed 01/18/2017 86771 Trigger Finger Release Incision / Tendon Sheath Completed Incision 01/18/2017 96460 Trigger Finger Release Incision / Tendon Sheath Completed Incision 07/11/2016 19832 Inject Tendon Sheath Or Ligament Aponeurosis Eg Plantar Completed Fascia 03/02/2016 82009 Trigger Finger Release Incision / Tendon Sheath Completed Incision 03/02/2016 52940 Trigger Finger Release Incision / Tendon Sheath Completed Incision 02/07/2016 01093 Trigger Finger Release Incision / Tendon Sheath Completed Incision 02/07/2016 25582 Trigger Finger Release Incision / Tendon Sheath Completed Incision 01/18/2016 [id number] Mammogram Completed 08/10/2015 70623 Inject Tendon Sheath Or Ligament Aponeurosis Eg Plantar Completed Fascia 06/28/2015 82673 TKR Total Knee Replacement Completed 06/28/2015 96899 TKR Total Knee Replacement Completed 06/28/2015 29345 EKG, Interpretation Only Completed 01/14/2015 39731 EKG, Interpretation Only Completed 12/29/2014 57128 Inject Tendon Sheath Or Ligament Aponeurosis Eg Plantar Completed Fascia 12/15/2014 01966 ECHO Transthorasic Realtime 2D W Doppler & Color Flow Completed Hosp 09/14/2014 86791 TKR Total Knee Replacement Completed 09/14/2014 05876 TKR Total Knee Replacement Completed 07/21/2014 35989 Rad Exam; Both Knees, Standing Ap Completed 04/06/2014 55552 Trigger Finger Release Incision / Tendon Sheath Completed Incision 11/11/2013 34741 Inject Tendon Sheath Or Ligament Aponeurosis Eg Plantar Completed Fascia 05/13/2013 32088 Inject Tendon Sheath Or Ligament Aponeurosis Eg Plantar Completed Fascia 09/03/2012 07198 Polysomnography Sleep Staging 4+ Parameters W/Cpap Completed 08/26/2012 48580 Polysomnography Sleep Staging 4+ Parameters Completed 07/13/2012 82108 ECHO Transthorasic Realtime 2D W Doppler & Color Flow Completed Hosp 10/04/2010 57933370 Colonoscopy Completed Encounters Type Date Location Provider Dx Diagnosis Office Visit 06/17/2018 Orthopedic Fallon Jones MD G56.21 Lesion of ulnar 10:15a Services Of C.M.A. nerve, right upper limb Office Visit 05/15/2018 Orthopedic Fallon Jones MD Z96.611 Presence of right 9:45a Services Of [facility]. 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, left ank/ft Office Visit 02/12/2018 Pulmonology And Rea G47.33 Obstructive sleep 10:30a Sleep Services Of HAYLEE Bertrand, RN, apnea (adult) [facility] REGIONAL PRODUCTION MANAGER-BC (pediatric) Office Visit 01/13/2018 [facility] Internal Antonio Black I26.99 Other pulmonary 2:30p Medicine - [address] Edgardo Urban,FACP embolism without Rd acute cor pulmonale J44.9 Chronic obstructive pulmonary disease, unspecified E03.9 Hypothyroidism, unspecified Office Visit 01/03/2018 9:50a [facility] Internal Antonio Black I26.99 Other pulmonary Jagdish Urban M.D.,FACP embolism without [address] acute cor pulmonale E03.9 Hypothyroidism, unspecified J44.9 Chronic obstructive pulmonary disease, unspecified Office Visit 12/20/2017 1:33p [facility] Son Andrews, I51.9 Heart disease, Assoc,gopi POOLE unspecified Hospitalists I27.20 Pulmonary hypertension, unspecified J44.9 Chronic obstructive pulmonary disease, unspecified Z96.611 Presence of right artificial shoulder joint Office Visit 12/19/2017 1:32p [facility] Son Andrews, I51.9 Heart disease, Assoc,gopi POOLE unspecified Hospitalists I27.20 Pulmonary hypertension, unspecified J44.9 Chronic obstructive pulmonary disease, unspecified Z96.611 Presence of right artificial shoulder joint Office Visit 12/18/2017 1:29p [facility] Son Andrews, I51.9 Heart disease, Assoc,gopi POOLE unspecified Hospitalists I27.20 Pulmonary hypertension, unspecified J44.9 Chronic obstructive pulmonary disease, unspecified Z96.611 Presence of right artificial shoulder joint Office Visit 11/21/2017 [facility] Internal Sully Z01.818 Encounter for other 11:00a Jagdish - TREVOR Hernandez preprocedural [address] examination M75.121 Complete rotatr-cuff tear/ruptr of r shoulder, not trauma M19.011 Primary osteoarthritis, right shoulder I27.20 Pulmonary hypertension, unspecified J44.9 Chronic obstructive pulmonary disease, unspecified Office Visit 10/28/2017 3:00p [facility] Internal Sully Z00.00 Encntr for Medicine [...] arm, init Office Visit 07/11/2017 8:30a Orthopedic Nino Lara.121 Complete Services Of MD jaimes C.MEfra [...] right shoulder C.M.A. 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 apnea (adult) Hospitalists (pediatric) J43.9 Emphysema, unspecified R09.02 Hypoxemia I10 Essential (primary) hypertension Office Visit 06/29/2015 4:16p [facility] Jazmine Wen, G47.33 Obstructive sleep Assoc,pc N.P. apnea (adult) Hospitalists (pediatric) J43.9 Emphysema, unspecified R09.02 Hypoxemia I10 Essential (primary) hypertension Office Visit 06/28/2015 [facility] Napoleon G47.33 Obstructive sleep 4:16p Assoc,pc [...] Services Of HAYLEE Bertrand, Apnea Adult & Bundle Cutter RN, [facility]- Pediatric Office Visit 12/17/2014 [facility] Radha 584.9 Acute Kidney 10:06p gopi Perdomo M.D. Failure, Unspecified Hospitalists 003.1 Salmonella Septicemia 009.1 Colitis Enteritis & Gastroenteritis Presumed Infectious Orig 276.1 Hyposmolality & Or Hyponatremia Office Visit 12/16/2014 [facility] Avery Black 003.0 Salmonella 10:45a For Infectious Edgardo Mcallister Gastroenteritis Diseases 790.7 Bacteremia 003.8 Salmonella Infections Other Spec 416.8 Pulmonary Heart Disease Other Chronic Office Visit 12/16/2014 [facility] Brayden, 584.9 Acute Kidney 10:05p gopi Perdomo M.D. Failure, Hospitalists Unspecified 003.1 Salmonella Septicemia 009.1 Colitis Enteritis & Gastroenteritis Presumed Infectious Orig 276.1 Hyposmolality & Or Hyponatremia [facility] 584.9 Acute Kidney 10:04p gopi Perdomo M.D. Failure, Hospitalists Unspecified 003.1 Salmonella Septicemia 276.1 Hyposmolality & Or Hyponatremia 009.1 Colitis Enteritis & Gastroenteritis Presumed Infectious Orig Office Visit [facility]/14[facility], 584.9 Acute Kidney 10:03p gopi Perdomo M.D. Failure, Hospitalists Unspecified 276.51 Dehydration 276.1 Hyposmolality & Or Hyponatremia 558.9 Gastroenteritis & Colitis Noninfectious Other Office Visit 12/13/2014 [facility], 276.51 Dehydration gopi Perdomo M.D. Hospitalists [...] 2Ndy Lower Leg Office Visit 09/18/2014 2:03p [facility] Laine S. V43.65 Knee Replacement Assoc,pc Foster, N.P. By Other Means Hospitalists 401.9 Hypertension Unspec 327.23 Obstructive Sleep Apnea Adult & Pediatric 244.9 Hypothyroidism Other Unspec Office Visit 09/17/2014 2:03p [facility] Laine S. V43.65 Knee Replacement Assoc,pc Foster, N.P. By Other Means Hospitalists 401.9 Hypertension Unspec 327.23 Obstructive Sleep Apnea Adult & Pediatric 244.9 Hypothyroidism Other Unspec Office Visit 09/16/2014 2:03p Laine S. Foster, N.P. V43.65 Knee Replacement By Other Means 401.9 Hypertension Unspec 327.23 Obstructive Sleep Apnea Adult & Pediatric 244.9 Hypothyroidism Other Unspec Office Visit 09/15/2014 2:03p [facility] Laine S. V43.65 Knee Replacement Assoc,pc [...] Services Of Juwan Garcia M.D. Acquired AT [place] Office Visit 05/13/2013 Orthopedic Yudy 727.03 Trigger Finger 2:45p Services Of Juwan Garcia M.D. Acquired AT [place] Office Visit 09/02/2012 Mario Ivy 327.23 Obstructive Sleep 1:26p Disorder Pedro Martin M.D. Apnea Adult & Pediatric Office Visit 08/08/2012 Mario Ivy 786.09 Dyspnea & 9:04a Disorder Pedro Martin M.D. Respiratory Abnormalities Other 780.79 Malaise And Fatigue Other Office Visit 07/15/2012 11:30a [facility] Warrensuzan Marie, 799.02 Hypoxemia Assoc, Hospitalists Edgardo 278.03 Obesity Hypoventilation Syndrome 787.91 Diarrhea 401.1 Hypertension Benign Office Visit 07/14/2012 2:12p Flavio aNik, 786.09 Dyspnea & Cardiology Of M.D., FACC, Respiratory [facility] FSCAI Abnormalities Other 401.9 Hypertension Unspec Office Visit 07/14/2012 11:30a [facility] Warren Karradha, 799.02 Hypoxemia Assoc, Hospitalists Edgardo 278.03 Obesity Hypoventilation Syndrome 787.91 Diarrhea 401.1 Hypertension Benign Office Visit 07/13/2012 11:29a [facility] Warren Gruporadha, 799.02 Hypoxemia Assoc,[place] Hospitalists Edgardo 278.03 Obesity Hypoventilation Syndrome 787.91 Diarrhea 401.1 Hypertension Benign Office Visit 07/12/2012 11:29a [facility] Tr Burns, 799.02 Hypoxemia Assoc, [place] Hospitalists 278.03 Obesity Hypoventilation Syndrome 787.91 Diarrhea 401.1 Hypertension Benign Office Visit 03/13/2012 2:00p Neurosurgery Zeferino Manley 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 at [facility] Internal Medicine [facility]10/13/2018 - Eddie Lieberman, [id number] Posterior tibial tendinitis, left legNew Therapy:Physical TherapyFollow up:Follow Up: 6 weeks
--- NOTE | 2018-11-05 14:25 | ED ---
Upper Extremity Pain - HPI Summary HPI Summary: Pt is an 83 y/o F presenting to the ED with a chief complaint of a fall today. She tripped over something and fell onto her R shoulder that has already been replaced. The pain is currently rated at 9/10, located in the upper shoulder area. She denies LOC or neck injury. - History of Current Complaint Chief Complaint: EDShouldBrodyleInj Stated Complaint: RT SHOULDER PAIN PER EMS Time Seen by Provider: 11/05/18 13:50 Hx Obtained From: Patient Mechanism Of Injury: Fall From A Standing Position Onset/Duration: Started Hours Ago, Still Present Timing: Constant, Lasting Hours Severity Initially: Severe Severity Currently: Severe Pain Location: Collar, Shoulder, Arm Character: Sharp Aggravating Factor(s): Movement Alleviating Factor(s): Nothing Associated Signs & Symptoms: Negative: Neck Pain - Allergies/Home Medications Allergies/Adverse Reactions: Allergies Allergy/AdvReac Type Severity Reaction Status Date / Time diclofenac AdvReac Severe Nausea Verified 01/03/18 11:30 morphine AdvReac Severe Itching Verified 01/03/18 11:30 moxifloxacin AdvReac Intermediate See Comment Verified 01/03/18 11:30 procaine AdvReac Intermediate Tachycardia Verified 01/03/18 11:30 PMH/Surg Hx/FS Hx/Imm Hx Previously Healthy: No Endocrine/Hematology History: Reports: Hx Thyroid Disease - hypothyroid, controlled with medication Denies: Hx Anticoagulant Therapy, Hx Diabetes Cardiovascular History: Reports: Hx Hypercholesterolemia, Hx Hypertension, Other Cardiovascular Problems/Disorders - COPD Denies: Hx Pacemaker/ICD, Hx Peripheral Vascular Disease Respiratory History: Reports: Hx Chronic Obstructive Pulmonary Disease (COPD), Hx Sleep Apnea, Other Respiratory Problems/Disorders - OXYGEN AT 2 LITERS AT NIGHT ONLY Denies: Hx Asthma GI History: Reports: Hx Gastroesophageal Reflux Disease - controlled with medication, Other GI Disorders - SALMONELLA 12/17 Denies: Hx Ulcer History: Denies: Hx Dialysis, Hx Renal Disease Musculoskeletal History: Reports: Hx Arthritis, Hx Back Problems, Hx Bursitis - BILATERAL HIPS, Other Musculoskeletal History - SPINAL FUSION 2000 Sensory History: Reports: Hx Contacts or Glasses - GLASSES Denies: Hx Cataracts, Hx Glaucoma, Hx Hearing Aid Opthamlomology History: Reports: Hx Contacts or Glasses - GLASSES Denies: Hx Cataracts, Hx Glaucoma Neurological History: Reports: Other Neuro Impairments/Disorders - bi-lat nerve dx, feet bi-lat, burning sensation Denies: Hx Dementia, Hx Headaches, Hx Seizures Psychiatric History: Reports: Hx Anxiety, Hx Depression Denies: Hx Substance Abuse - Cancer History Hx Chemotherapy: No Hx Radiation Therapy: No - Surgical History Surgery Procedure, Year, and Place: Lumbar fusion, cholecystectomy, appendectomy , hysterectomy, hernia repair, bilateral carpal tunnel. Left foot bunionectomy , Removal of abcess after appendectomy. bi-lat knee replacement. CYST REMOVED FROM LEFT BREAST AT AGE 17,right shoulder Hx Anesthesia Reactions: Yes - pt states she had problem with BP and 02 sat. - Immunization History Date of Tetanus Vaccine: within last 10 years per pt Date of Influenza Vaccine: 2013 Infectious Disease History: No Infectious Disease History: Reports: History Other Infectious Disease - SALMONELLA 12/17 Denies: Hx Hepatitis, Hx Human Immunodeficiency Virus (HIV), Traveled Outside the in Last 30 Days - Family History Known Family History: Negative: Cardiac Disease - Social History Alcohol Use: None Alcohol Amount: 2 glasses wine or mixed drink/DAY Hx Substance Use: No Substance Use Type: Reports: None Hx Tobacco Use: Yes Smoking Status (MU): Former Smoker Type: Cigarettes Amount Used/How Often: 2 PPD FOR ABOUT 40 YEARS smoked 2 ppd at the end, smoked less in beginning Length of Time of Smoking/Using Tobacco: 40 YRS Have You Smoked in the Last Year: No Review of Systems Musculoskeletal: Negative - neck injury Positive: Arthralgia, Decreased ROM Neurological: Negative - LOC All Other Systems Reviewed And Are Negative: Yes Physical Exam - Summary Physical Exam Summary: VITAL SIGNS: Reviewed. GENERAL: Patient is a well-developed and nourished female who is lying comfortable in the stretcher. Patient is not in any acute respiratory distress. HEAD AND FACE: No signs of trauma. No ecchymosis, hematomas or skull depressions. No sinus tenderness. EYES: PERRLA, EOMI x 2, No injected conjunctiva, no nystagmus. EARS: Hearing grossly intact. Ear canals and tympanic membranes are within normal limits. MOUTH: Oropharynx within normal limits. NECK: Supple, trachea is midline, no adenopathy, no JVD, no carotid bruit, no c- spine tenderness, neck with full ROM. CHEST: Symmetric, no tenderness at palpation LUNGS: Clear to auscultation bilaterally. No wheezing or crackles. CVS: Regular rate and rhythm, S1 and S2 present, no murmurs or gallops appreciated. ABDOMEN: Soft, non-tender. No signs of distention. No rebound no guarding, and no masses palpated. Bowel sounds are normal. EXTREMITIES: No edema, no cyanosis or clubbing. Good ROM in R shoulder, secondary to pain. NEURO: Alert and oriented x 3. No acute neurological deficits. Speech is normal and follows commands. SKIN: Dry and warm Triage Information Reviewed: Yes Vital Signs On Initial Exam: Initial Vitals Temp Pulse Resp BP Pulse Ox 98.2 F 89 18 169/84 94 11/05/18 13:58 11/05/18 13:58 11/05/18 13:58 11/05/18 13:58 11/05/18 13:58 Vital Signs Reviewed: Yes Diagnostics - Vital Signs Vital Signs Temp Pulse Resp BP Pulse Ox 11/05/18 13:58 98.2 F 89 18 169/84 94 - Laboratory Result Diagrams: 11/05/18 14:55 11/05/18 14:55 Lab Statement: Any lab studies that have been ordered have been reviewed, and results considered in the medical decision making process. - Radiology Shoulder XR Radiology Interpretation Completed By: Radiologist Summary of Radiographic Findings: Periprosthetic fracture at the proximal humerus at the tip of the right humeral prosthesis. This is consistent with a stress riser fracture. ED physician has reviewed this report. - CT Upper Extremity CT CT Interpretation Completed By: Radiologist Summary of CT Findings: DISPLACED ANGULATED PERIPROSTHETIC FRACTURE ADJACENT TO THE DISTAL TIP OF THE HUMERAL PROSTHESIS. ED physician has reviewed this report. Course/Dx - Course Assessment/Plan: Patient is a 83-year-old female who presents to the emergency department with chief complaint of right shoulder pain. A right shoulder x-ray impression: Periprosthetic fracture of the proximal humerus at the tip of the right humeral prosthesis. This is consistent with a stress riser fracture. In the ED course the patient was given oxycodone for pain. Test results without any significant abnormality. I discussed the case with Dr. Jones from orthopedics and she recommends for the patient to get a CT and discharge the patient home and follow up with her office tomorrow morning. CT of the right shoulder he impression: Displaced angulated periprosthetic fracture adjacent to the distal tip of the humeral prosthesis. Discussed the findings, test results and plan with the patient and she agrees. The patient was given a prescription for oxycodone at home. Patient is hemodynamically stable alert oriented 3. - Diagnoses Provider Diagnoses: Proximal humerus fracture Discharge - Sign-Out/Discharge Documenting (check all that apply): Patient Departure Patient Received Moderate/Deep Sedation with Procedure: No - Discharge Plan Condition: Stable Disposition: HOME Prescriptions: oxyCODONE/Acetamin 5/325 MG* [Percocet 5/325 TAB*] 1 tab PO Q6H PRN #15 tab MDD 4 PRN Reason: Pain Referrals: Antonio Urban MD [Primary Care Provider] - Fallon Jones MD [Medical Doctor] - Additional Instructions: Please follow up with Dr. Jones of orthopedics as soon as possible. Return to the ED with any new or worsening symptoms. - Billing Disposition and Condition Condition: STABLE Disposition: Home - Attestation Statements Document Initiated by Scribe: Yes Documenting Scribe: Eugenia Adames Provider For Whom Emily is Documenting (Include Credential): Tommie Mendez MD. Scribe Attestation: Eugenia Salazar, scribed for Tommie Mendez MD. on 11/05/18 at 1800. Scribe Documentation Reviewed: Yes Provider Attestation: The documentation as recorded by the Eugenia villeda accurately reflects the service I personally performed and the decisions made by , Tommie Mendez MD. Status of Scribe Document: Viewed Consult Consult: 0230 - Spoke with Dr. Jones who requested a CT of the RUE be done. He also requested the pt to follow up with him in the morning and be given pain medication in the meantime.
[2018-11-05] MEDS ORDERED: fentaNYL* 50 MCG/ML 2 ML VIAL (100 MCG VIAL) IV SLOW PU ONE ×2 (14:27→14:33)
[2018-11-05] MEDS ORDERED: NS 0.9% 1000 ML** 1,000 ML IV ONE (14:32)
[2018-11-05] MEDS ORDERED: oxyCODONE SR TAB(*) 10 MG TAB.SR PO ONE (14:40)
[2018-11-05 15:07] LABS: ABS Basophils 0.1 10^3/ul (0-0.2); ABS Eosinophils 0.1 10^3/ul (0-0.6); ABS Lymphocytes 0.9 10^3/ul (1.0-4.8); ABS Monocytes 0.5 10^3/ul (0-0.8); ABS Neutrophils 7.4 10^3/ul (1.5-7.7); ABS Nucleated RBC 0 10^3/ul; Eosinophil % 1.4 %; Hematocrit 42 % (33-41); Hemoglobin 14.2 g/dL (12.0-16.0); Lymphocyte % 10.1 %; Mean Corpuscular HGB Conc 34 g/dL (31-36); Mean Corpuscular Hemoglobin 30 pg (27-31); Mean Corpuscular Volume 89 fL (80-97); Mean Platelet Volume 9.2 fL (7.4-10.4); Nucleated Red Blood Cells % 0; Platelet Count 255 10^3/uL (150-450); Red Blood Count 4.78 10^6 /uL (3.70-4.87); Red Cell Distribution Width 14 % (10.5-15)
[2018-11-05 15:40] LABS: ALT 14 U/L (7-52); Albumin 4.6 g/dL (3.2-5.2); Albumin/Globulin Ratio 1.6 (1-3); Alkaline Phosphatase 69 U/L (34-104); BUN/Creatinine Ratio 28.2 (8-20); Blood Urea Nitrogen 24 mg/dL (6-24); C Reactive Protein 2.56 mg/L (<8.01); CO2 Carbon Dioxide 28 mmol/L (22-32); Calcium 9.7 mg/dL (8.6-10.3); Chloride 99 mmol/L (101-111); EGFR African American 77.7 (>60); EGFR Non-African American 64.2 (>60); Globulin 2.9 g/dL (2-4); Glucose 114 mg/dL (70-100); Sodium 136 mmol/L (135-145); Total Protein 7.5 g/dL (6.4-8.9)
[2018-11-05 15:51] LABS: Anion Gap 9 mmol/L (2-11)
[2018-11-05 18:03] VITALS: BP 141/79
== END 2018-11-05 17:30 | disposition home or self-care (01) ==
LOC: ED 13:46
DX: M97.31XA Periprosthetic fracture around internal prosthetic right shoulder joint, initial encounter (principal); W01.0XXA Fall on same level from slipping, tripping and stumbling without subsequent striking against object, initial encounter; I10 Essential (primary) hypertension; J44.9 Chronic obstructive pulmonary disease, unspecified; E78.00 Pure hypercholesterolemia, unspecified; E03.9 Hypothyroidism, unspecified; M19.90 Unspecified osteoarthritis, unspecified site; F41.9 Anxiety disorder, unspecified; F32.9 Major depressive disorder, single episode, unspecified; Z96.611 Presence of right artificial shoulder joint; Z88.5 Allergy status to narcotic agent; Z88.4 Allergy status to anesthetic agent; Z88.8 Allergy status to other drugs, medicaments and biological substances; Z79.899 Other long term (current) drug therapy; Z98.1 Arthrodesis status; Z87.891 Personal history of nicotine dependence
CPT/HCPCS: 36415; 80053; 85025; 86140; 96374; 99282; A9270-GY; J3010

== ENCOUNTER 2019-01-16 14:10 | Emergency (ER) | payer MEDICARE, OTHER ==
[2019-01-16 14:24] VITALS: BP 97/55
--- NOTE | 2019-01-16 14:52 | UC ---
Skin Complaint HPI - HPI Summary HPI Summary: 83-year-old female who has a rash in her right groin area underneath her abdominal skin fold. - History of Current Complaint Chief Complaint: UCRash Time Seen by Provider: 01/16/19 14:45 Stated Complaint: PERSONAL RASH Hx Obtained From: Patient ?: No Onset/Duration: Gradual Onset Skin Exposure Onset/Duration: Days Ago Onset Severity: Mild Current Severity: Mild Pain Intensity: 0 Location: Diffuse, Other - Under the right abdominal skin fold. Character: Pruritus, Redness Aggravating Factor(s): Nothing Alleviating Factor(s): Nothing Associated Signs & Symptoms: Positive: Negative - Allergy/Home Medications Allergies/Adverse Reactions: Allergies Allergy/AdvReac Type Severity Reaction Status Date / Time diclofenac AdvReac Severe Nausea Verified 01/16/19 14:24 morphine AdvReac Severe Itching Verified 01/16/19 14:24 moxifloxacin AdvReac Intermediate See Comment Verified 01/16/19 14:24 procaine AdvReac Intermediate Tachycardia Verified 01/16/19 14:24 Home Medications: Home Medications Acetaminophen TAB* [Tylenol TAB*] 1,000 mg PO Q4H PRN 01/16/19 [History Confirmed 01/16/19] Umeclidin/Vilant 62.5 MDI(NF) [ANORO 62.5/25 Ellipta DEVICE (NF)] 1 puff INH DAILY 01/16/19 [History Confirmed 01/16/19] PMH/Surg Hx/FS Hx/Imm Hx Previously Healthy: Yes Endocrine History: Thyroid Disease Cardiovascular History: Hypertension Respiratory History: COPD Other History Of: Negative For: Anticoagulant Therapy - Surgical History Surgical History: Yes Surgery Procedure, Year, and Place: Lumbar fusion, cholecystectomy, appendectomy , hysterectomy, hernia repair, bilateral carpal tunnel. Left foot bunionectomy , Removal of abcess after appendectomy. bi-lat knee replacement x2, trigger fingers. CYST REMOVED FROM LEFT BREAST AT AGE 17,right shoulder and revision - Family History Known Family History: Negative: Cardiac Disease - Social History Occupation: Retired Alcohol Use: None Alcohol Amount: 2 glasses wine or mixed drink/DAY Substance Use Type: None Smoking Status (MU): Former Smoker Type: Cigarettes Amount Used/How Often: 2 PPD FOR ABOUT 40 YEARS smoked 2 ppd at the end, smoked less in beginning Length of Time of Smoking/Using Tobacco: 40 YRS Have You Smoked in the Last Year: No When Did the Patient Quit Smoking/Using Tobacco: 1999 - Immunization History Most Recent Influenza Vaccination: 2013 Most Recent Tetanus Shot: 2005 Most Recent Pneumonia Vaccination: 2004 Review of Systems All Other Systems Reviewed And Are Negative: Yes Skin: Positive: Rash - Rash underneath right abdominal skin fold. Is Patient Immunocompromised?: No Physical Exam Triage Information Reviewed: Yes Appearance: Well-Appearing, No Pain Distress, Well-Nourished Vital Signs: Initial Vital Signs Temp 98.5 F 01/16/19 14:18 Pulse 77 01/16/19 14:18 Resp 19 01/16/19 14:18 BP 97/55 01/16/19 14:18 Pulse Ox 96 01/16/19 14:18 Vital Signs Reviewed: Yes Skin: Positive: Rashes - Patient has what appears to be a fungal rash underneath her right abdominal skin fold. Course/Dx - Course Course Of Treatment: The patient preferred to have Diflucan to see if that would help the area however I feel she should also have some Lotrimin topical cream. She does have a caregiver come in 3 days a week to bathe her because she fractured her arm approximately 6 weeks ago and is unable to apply the medication. She's follow- up with her primary care provider in 4 or 5 days if no improvement. She is to keep the area as clean and dry is possible. - Diagnoses Provider Diagnosis: Tinea corporis Discharge - Sign-Out/Discharge Documenting (check all that apply): Patient Departure All imaging exams completed and their final reports reviewed: No Studies - Discharge Plan Condition: Fair Disposition: HOME Prescriptions: Clotrimazole [Lotrimin AF] 30 gm TP DAILY 7 Days #1 tube Fluconazole 150 MG TAB* [Diflucan 150 MG TAB*] 150 mg PO UC ONCE 1 Days #1 tablet Patient Education Materials: Tinea Corporis (ED) Referrals: Antonio Urban MD [Primary Care Provider] - Additional Instructions: Keep the area clean and dry as much as possible, apply cream to the area and follow-up with your primary care provider if no improvement in 4-5 days. - Billing Disposition and Condition Condition: FAIR Disposition: Home
== END 2019-01-16 15:08 | disposition home or self-care (01) ==
LOC: UCEAST 14:10
DX: B35.4 Tinea corporis (principal); I10 Essential (primary) hypertension; J44.9 Chronic obstructive pulmonary disease, unspecified; Z87.891 Personal history of nicotine dependence
CPT/HCPCS: 99212; G0463

== ENCOUNTER 2019-10-20 07:53 | Day surgery (SDC) | payer MEDICARE, OTHER ==
--- NOTE | 2019-10-15 10:06 | HP ---
AMENDED REPORT NOW INCLUDES DESIGNATED COSIGNER - ESIGNED BEFORE ADJUSTMENTS PREOPERATIVE HISTORY AND PHYSICAL: DATE OF SURGERY/ADMISSION: 10/20/19 DATE OF OFFICE VISIT/ENCOUNTER: 10/12/19 ATTENDING SURGEON: Yudy Tate MD * (DICTATED BY PHILIP LANDRUM) PROCEDURE: Trigger release left middle finger. HISTORY OF PRESENT ILLNESS: This is an 84-year-old female who complains of triggering and locking of her left middle finger. This has been going on for a few weeks. She has had multiple trigger fingers in the past and has had surgery for those and has had a very good outcome. She would like to proceed directly to surgery for her left middle finger. She has a medical history including history of PE in 2018, COPD, sleep apnea for which she uses oxygen in her CPAP at night. PAST MEDICAL HISTORY: 1. Hypertension. 2. GERD. 3. Hyperlipidemia. 4. 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 5. Hypothyroidism. 6. COPD/emphysema. 7. Sleep apnea with O2 in her CPAP at night. 8. Restless leg syndrome. PAST SURGICAL HISTORY: 1. Right total shoulder arthroplasty in 2018 with subsequent ORIF. 2. Bilateral total knee arthroplasties. 3. Left breast cyst excision. 4. Appendectomy. 5. Bunion repair. 6. Hernia repair. 7. Bilateral carpal tunnel release. 8. Spinal fusion L4-L5. 9. Hysterectomy. 10. Trigger finger releases. 11. Cholecystectomy. The patient reports she has had trouble with low blood pressure in the past with anesthesia. CURRENT MEDICATIONS: 1. Yuliana 180 mg daily. 2. Amoxicillin 500 mg 4 tabs before dental work. 3. Anoro Ellipta 62.5/25 mcg/inhalation 1 inhalation daily. 4. Aspirin 81 mg daily. 5. Carbidopa/levodopa 25/100 mg daily. 6. Clotrimazole 1% apply to affected area. 7. Culturelle once daily. 8. Flonase allergy relief 50 mcg/ACT 1 puff twice a day. 9. Furosemide 40 mg daily. 10. Levothyroxine sodium 88 mcg daily. 11. Naproxen 500 mg one tablet q.12 hours p.r.n. 12. Neurontin 300 mg 2 tablets in the a.m. and 2 in the p.m. 13. Nystatin topically twice a day p.r.n. 14. Omeprazole 20 mg daily. 15. Oxygen use as directed with CPAP. 16. Simvastatin 40 mg daily. 17. Spironolactone 50 mg daily. 18. Tylenol extra strength 500 mg 2 tablets in the a.m. 3 tablets in the p.m. 19. Vitamin B12 of 1000 mg daily. ALLERGIES: MORPHINE causes hives, TRAMADOL causes sleeplessness, NOVOCAINE causes heart palpitations, but the patient is okay with lidocaine. AVELOX and DICHLORALPHENAZONE, reaction unknown. FAMILY MEDICAL HISTORY: Heart disease. SOCIAL HISTORY: The patient is retired. She is a former smoker. She quit in 1999. Prior to that she smoked a half to 1 pack per day for 40 years. She denies recreational drug use. She drinks alcohol on occasion. REVIEW OF SYSTEMS: Negative for general, cephalic, cardiovascular, respiratory , GI, , other musculoskeletal, integumentary, endocrine, neurologic, and hematologic symptoms. Infectious Disease: Negative for MRSA, hepatitis C, HIV. PHYSICAL EXAMINATION GENERAL: Well-developed, well-nourished 84-year-old female, in no acute distress. VITAL SIGNS: Height 5 feet tall, weight 209 pounds, pulse rate 78, blood pressure 122/72. HEENT: Normocephalic and atraumatic. Pupils are equal, round, and reactive to light and accommodation. Extraocular movements are intact. Throat is clear. NECK: Supple. No palpable lymph nodes. PULMONARY: Lungs are clear to auscultation bilaterally. No wheezes, rales, or rhonchi. CARDIOVASCULAR: Regular rate and rhythm. S1 and S2. No murmurs, rubs, or gallops. No edema. ABDOMEN: Positive bowel sounds. Soft and nontender. NEUROLOGIC: Alert and oriented x3. Cranial nerves II through XII are intact. Sensation is intact to light touch. MUSCULOSKELETAL: On exam of her left hand she has significant tenderness to palpation at the A1 judah of the middle finger. She cannot make a full tight fist and she has trouble extending her finger fully. Skin is intact. Neurovascular function is intact. IMPRESSION: Left middle finger trigger finger. PLAN: The patient is scheduled to undergo a trigger release, left middle finger with Dr. Tate on 10/20/19. She will return to the office 10 days postop for followup and suture removal. A prescription for Tylenol No. 3 was e- scribed to her pharmacy for postoperative pain management. PHILIP LANDRUM [id number]/[facility] #: [id number] MTDGraham
[~2019-10-20 07:53] MED LIST changes: -Buffered Lidocaine 0.9% SYRIN* 5 ML/SYR SYRINGE INTRADERM ONE; +Buffered Lidocaine 1% SYRIN* 1 ML/SYRINGE INTRADERM ONE; -Famotidine IV* 10 MG/ML 2 ML (20 mg) IV ONE; +Lactated Ringers 1000 ML Bag* 1,000 ML IV SCH
[2019-10-20] MEDS ORDERED: Lidocaine 1% INJ* 10 MG/ML 30 ML SDV ONE (08:21)
[2019-10-20] MEDS ORDERED: Midazolam* 1 MG/ML 2 ML VIAL (2 MG) ONE (08:38)
[2019-10-20] MEDS ORDERED: fentaNYL* 50 MCG/ML 2 ML VIAL (100 MCG VIAL) ONE (08:38)
[2019-10-20] MEDS ORDERED: Propofol* 10 MG/ML 20 ML BTL ONE (08:45)
[2019-10-20 09:37] VITALS: BP 118/64
--- NOTE | 2019-10-20 11:20 | OP ---
DATE OF OPERATION: 10/20/19 [facility] DATE OF : 39 SURGEON: Yudy Tate MD. PARTS TECHNICIAN: PHILIP Macedo. ANESTHESIA: Local MAC. PRE-OP DIAGNOSIS: Left long finger trigger finger. POST-OP DIAGNOSIS: Left long finger trigger finger. OPERATIVE PROCEDURE: Left long finger trigger release. ESTIMATED BLOOD LOSS: Zero. TOURNIQUET TIME: About 10 minutes. INDICATIONS FOR PROCEDURE: Jelly is an 84-year-old female who has triggering and locking of her left middle finger. She presents for trigger release. DESCRIPTION OF PROCEDURE: The patient was brought to the operative room, was given a sedation anesthetic and a local infiltration with 10 cc of 1% plain lidocaine in the palm of her left hand. Skin of her left hand and forearm was prepped and draped in the usual sterile fashion. The hand and forearm were exsanguinated and the tourniquet elevated to 250 mmHg. A transverse incision was made centered over the A1 judah of the left middle finger. We dissected it bluntly through the subcutaneous tissue down to the judah. The digital neurovascular bundles were retracted by the surgical garment fitter Marj Pappas. The A1 judah was incised longitudinally completely releasing the flexor tendons , which were in good condition. The wound was irrigated and the skin edges reapproximated with a 4-0 nylon suture. The wound was dressed with Xeroform, 4x4 , Webril, and an Fernando wrap. The patient tolerated the procedure well and was brought to the recovery room in good condition. [id number]/[facility] #: [id number] MTDD
== END 2019-10-20 09:56 | disposition home or self-care (01) ==
LOC: OREAST 07:53
PROVIDERS: ATTEND Orthopaedic Surgery
DX: M65.332 Trigger finger, left middle finger (principal); I10 Essential (primary) hypertension; E78.5 Hyperlipidemia, unspecified; R60.9 Edema, unspecified; G47.33 Obstructive sleep apnea (adult) (pediatric); K21.9 Gastro-esophageal reflux disease without esophagitis; E03.9 Hypothyroidism, unspecified; G25.81 Restless legs syndrome
CPT/HCPCS: J2250; J2704; J3010